=== PATIENT | male | born 1970 | race Caucasian/White ===

== ENCOUNTER 2021-03-19 19:34 | Emergency (ER) | payer MEDICAID ==
[~2021-03-19] VITALS: Ht 182.9 cm; Wt 100.0 kg
[~2021-03-19 19:34] MED LIST: ARIP15TA27 PO; LEVO50 PO; QUET200T PO; SERT-158 PO
[2021-03-19 20:27] LABS: EOSINOPHILS % (AUTO) 0.6 % (1.0-6.0); HEMATOCRIT 49.3 % (41-53); HEMOGLOBIN 16.8 g/dL (13.5-17.5); LYMPHOCYTES # (AUTO) 3.5 K/uL (1.0-4.8); LYMPHOCYTES % (AUTO) 39.8 % (22.0-44.0); MEAN CORPUSCULAR HEMOGLOBIN 32.8 pg (26.0-34.0); MEAN CORPUSCULAR HGB CONC 34.1 G/dL (31.0-37.0); MEAN CORPUSCULAR VOLUME 96 fL (80-100); MONOCYTES # (AUTO) 0.5 K/uL (0.1-1.0); MONOCYTES % (AUTO) 5.5 % (2.0-9.0); NEUTROPHILS # (AUTO) 4.7 K/uL (1.8-7.7); NEUTROPHILS % (AUTO) 53.1 % (40.0-70.0); PLATELET COUNT (AUTO) 221 K/uL (150-450); RED BLOOD CELL COUNT(AUTO) 5.13 MIL/uL (4.50-5.90); RED CELL DISTRIBUTION WIDTH 14.4 % (11.5-14.5)
[2021-03-19 20:41] LABS: ANION GAP 14 mmol/L (8-16); CARBON DIOXIDE 25 mmol/L (22-29); CHLORIDE 101 mmol/L (98-107); CREATININE 1.18 mg/dL (0.60-1.30); GLOMERULAR FILTR. RATE CALC > 60 mL/min (>60); GLUCOSE,RANDOM 194 mg/dL (70-110); POTASSIUM 3.8 mmol/L (3.5-5.1); SODIUM SERUM 140 mmol/L (136-145); UREA NITROGEN, BLOOD 11 mg/dL (7-18)
[2021-03-19 20:58] LABS: ASPARTATE AMINOTRANSFERASE 115 U/L (15-37); BILIRUBIN,TOTAL 0.6 mg/dL (0.1-1.0); THYROID STIMULATING HORMONE 5.59 uIU/mL (0.36-3.74); TOTAL PROTEIN, SERUM 6.9 g/dL (6.4-8.2)
[2021-03-19 21:18] LABS: ALBUMIN 3.2 g/dL (3.4-5.0)
[2021-03-19 21:24] LABS: ALANINE AMINOTRANSFERASE 80 U/L (12-78); ALKALINE PHOSPHATASE 128 U/L (46-116)
[2021-03-19 21:32] VITALS: BP 132/87
[2021-03-19 21:32] LABS: FREE T4 (FREE THYROXINE) 0.86 ng/dL (0.76-1.46)
[2021-03-19 21:50] LABS: COVID AG,FIA SOURCE NASOPHARYNGEAL
== END 2021-03-20 00:04 | disposition home or self-care (01) ==
LOC: EMS 19:35
DX: R45.851 Suicidal ideations (principal); F10.10 Alcohol abuse, uncomplicated; R74.01 Elevation of levels of liver transaminase levels; F17.210 Nicotine dependence, cigarettes, uncomplicated; Z20.822 Contact with and (suspected) exposure to COVID-19; Y90.8 Blood alcohol level of 240 mg/100 ml or more
CPT/HCPCS: 80053; 84439; 84443; 85025; 87426; 99285; G0480

== ENCOUNTER 2021-06-20 12:16 | Inpatient (IN) | payer MEDICAID ==
[~2021-06-20] VITALS: Ht 182.9 cm; Wt 104.8 kg
[2021-06-20 14:38] LABS: BASOPHILS % (AUTO) 1.1 % (0.0-2.0); EOSINOPHILS % (AUTO) 0.4 % (1.0-6.0); HEMATOCRIT 54.4 % (41-53); HEMOGLOBIN 18.6 g/dL (13.5-17.5); LYMPHOCYTES # (AUTO) 1.8 K/uL (1.0-4.8); LYMPHOCYTES % (AUTO) 25.9 % (22.0-44.0); MEAN CORPUSCULAR HEMOGLOBIN 32.8 pg (26.0-34.0); MEAN CORPUSCULAR HGB CONC 34.2 G/dL (31.0-37.0); MEAN CORPUSCULAR VOLUME 96 fL (80-100); MONOCYTES # (AUTO) 0.4 K/uL (0.1-1.0); MONOCYTES % (AUTO) 5.7 % (2.0-9.0); NEUTROPHILS # (AUTO) 4.8 K/uL (1.8-7.7); NEUTROPHILS % (AUTO) 66.9 % (40.0-70.0); PLATELET COUNT (AUTO) 227 K/uL (150-450); RED BLOOD CELL COUNT(AUTO) 5.66 MIL/uL (4.50-5.90); RED CELL DISTRIBUTION WIDTH 13.5 % (11.5-14.5)
[2021-06-20 14:48] LABS: ANION GAP 17 mmol/L (8-16); CALCIUM, TOTAL 8.6 mg/dL (8.8-10.5); CARBON DIOXIDE 21 mmol/L (22-29); CHLORIDE 98 mmol/L (98-107); CREATININE 1.17 mg/dL (0.60-1.30); GLOMERULAR FILTR. RATE CALC > 60 mL/min (>60); GLUCOSE,RANDOM 143 mg/dL (70-110); POTASSIUM 3.8 mmol/L (3.5-5.1); SODIUM SERUM 136 mmol/L (136-145); UREA NITROGEN, BLOOD 17 mg/dL (7-18)
[2021-06-20 14:51] LABS: SALICYLATE 3.1 mg/dL (2.8-20.0)
[2021-06-20 14:53] LABS: ACETAMINOPHEN < 2 mcg/mL (10-30); ALANINE AMINOTRANSFERASE 87 U/L (12-78); ALBUMIN 4.1 g/dL (3.4-5.0); ALKALINE PHOSPHATASE 101 U/L (46-116); ASPARTATE AMINOTRANSFERASE 131 U/L (15-37); BILIRUBIN,TOTAL 0.5 mg/dL (0.1-1.0); TOTAL PROTEIN, SERUM 8.7 g/dL (6.4-8.2)
[2021-06-20 16:33] LABS: AMPHET/METH SCREEN,URINE NEGATIVE (NEGATIVE); BARBITURATE SCREEN, URINE NEGATIVE (NEGATIVE); BENZODIAZEPINES SCREEN,URINE NEGATIVE (NEGATIVE); CANNABINOID SCREEN,URINE POSITIVE (NEGATIVE); COCAINE SCREEN,URINE NEGATIVE (NEGATIVE); METHADONE SCREEN, URINE NEGATIVE (NEGATIVE); OPIATE SCREEN,URINE NEGATIVE (NEGATIVE)
[2021-06-20 16:37] LABS: PHENCYCLIDINE SCREEN,URINE NEGATIVE (NEGATIVE)
[2021-06-20 16:40] LABS: APPEARANCE,URINE CLOUDY (CLEAR); BILIRUBIN,URINE NEGATIVE (NEGATIVE); GLUCOSE, URINE (UA) NEGATIVE (NEGATIVE); KETONES,URINE NEGATIVE (NEGATIVE); LEUKOCYTE ESTERASE ,URINE NEGATIVE (NEGATIVE); NITRATE,URINE NEGATIVE (NEGATIVE); OCCULT BLOOD,URINE NEGATIVE (NEGATIVE); PROTEIN,URINE NEGATIVE (NEGATIVE); UROBILINOGEN,URINE 0.2 mg/dL (<=1.0)
[2021-06-20] MEDS ORDERED: LORazepam 2 MG TABLET PO ONE (16:45)
[2021-06-20 17:11] LABS: COVID AG,FIA SOURCE NASAL SWAB
[2021-06-20 17:25] LABS: SQUAMOUS EPITHELIAL CELL,UR Few /LPF (None Seen)
[2021-06-20 17:26] LABS: BACTERIA,URINE None Seen /HPF (None Seen); RBC,URINE None Seen /HPF (0-2); WBC,URINE 0-2 /HPF (0-5)
[2021-06-20] MEDS ORDERED: LORazepam 2 MG TABLET PO PRN (17:30)
[2021-06-20] MEDS ORDERED: DOCUSATE SODIUM 100 MG CAPSULE PO PRN (18:00)
[2021-06-20] MEDS ORDERED: ALBUTEROL SULFATE HFA 90 MCG/PUFF 8 GM INHALER IH PRN (18:00)
[2021-06-20] MEDS ORDERED: CloNIDine HCL 0.1 MG TABLET PO PRN (18:00)
[2021-06-20] MEDS ORDERED: MAGNESIUM HYDROXIDE SUSPENSION 30 ML UDCUP PO PRN (18:00)
[2021-06-20] MEDS ORDERED: IBUPROFEN 400 MG TABLET PO PRN (18:00)
[2021-06-20] MEDS ORDERED: MAG HYDROX/AL HYDROX/SIMETH ES 30 ML SUSPENSION UDCUP PO PRN (18:00)
[2021-06-20] MEDS ORDERED: PETROLATUM,WHITE 28 GM JELLY TP PRN (18:00)
[2021-06-20] MEDS ORDERED: LOPERAMIDE HCL 2 MG CAPSULE PO PRN (18:00)
[2021-06-20] MEDS ORDERED: ACETAMINOPHEN 325 MG TABLET PO PRN (18:00)
[2021-06-20] MEDS ORDERED: GuaiFENesin/D-METHORPHAN [SUGAR-FREE] 200-20MG/10 ML SYRUP UDCUP PO PRN (18:00)
[2021-06-20 21:00] VITALS: BP 164/102
[2021-06-20] MEDS: ONDANSETRON HCL 4 MG TABLET PO PRN (21:49)
[2021-06-20] MEDS: LORazepam 2 MG TABLET PO PRN (21:52)
[2021-06-20 22:09] VITALS: BP 140/97
[2021-06-20 22:11] VITALS: BP 140/97
[2021-06-20 23:05] VITALS: BP 150/98
[2021-06-21] VITALS (12 sets, daily range): BP systolic 102–176; BP diastolic 73–99
[2021-06-21] MEDS: LORazepam 2 MG TABLET PO PRN (03:26)
[2021-06-21] MEDS ORDERED: LORazepam 2 MG TABLET PO PRN (07:00)
[2021-06-21 07:26] LABS: HEMOGLOBIN A1C 6.7 % (3.8-5.6)
[2021-06-21 07:38] LABS: CHOL/HDL RATIO 2.3 (4.2-7.3); CHOLESTEROL 129 mg/dL (131-200); FREE T4 (FREE THYROXINE) 0.94 ng/dL (0.76-1.46); HDL CHOLESTEROL 57 mg/dL (40-60); LDL CHOL (CALC.) 29 mg/dL (0-130); THYROID STIMULATING HORMONE 8.82 uIU/mL (0.36-3.74); TRIGLYCERIDES 217 mg/dL (15-150)
[2021-06-21] MEDS: LORazepam 2 MG TABLET PO SCH ×2 (08:21→09:04)
[2021-06-21] MEDS: ONDANSETRON HCL 4 MG TABLET PO PRN (08:29)
[2021-06-21] MEDS: AmLODIPine BESYLATE 10 MG TABLET PO SCH (10:34)
[2021-06-21] MEDS: LISINOPRIL 20 MG TABLET PO SCH (10:34)
[2021-06-21] MEDS: QUEtiapine FUMARATE 100 MG TABLET PO SCH (11:40)
[2021-06-21] MEDS ORDERED: ACETAMINOPHEN 325 MG TABLET PO PRN (12:00)
[2021-06-21] MEDS ORDERED: MAG HYDROX/AL HYDROX/SIMETH ES 30 ML SUSPENSION UDCUP PO PRN (12:00)
[2021-06-21] MEDS ORDERED: GuaiFENesin/D-METHORPHAN [SUGAR-FREE] 200-20MG/10 ML SYRUP UDCUP PO PRN (12:00)
[2021-06-21] MEDS ORDERED: CloNIDine HCL 0.1 MG TABLET PO PRN (12:00)
[2021-06-21] MEDS ORDERED: ONDANSETRON HCL 4 MG TABLET PO PRN (12:00)
[2021-06-21] MEDS ORDERED: ALBUTEROL SULFATE HFA 90 MCG/PUFF 8 GM INHALER IH PRN (12:00)
[2021-06-21] MEDS ORDERED: PETROLATUM,WHITE 28 GM JELLY TP PRN (12:00)
[2021-06-21] MEDS ORDERED: NICOTINE 14 MG/24 HOUR PATCH TD PRN (12:00)
[2021-06-21] MEDS ORDERED: IBUPROFEN 400 MG TABLET PO PRN (12:00)
[2021-06-21] MEDS ORDERED: MAGNESIUM HYDROXIDE SUSPENSION 30 ML UDCUP PO PRN (12:00)
[2021-06-21] MEDS ORDERED: LOPERAMIDE HCL 2 MG CAPSULE PO PRN (12:00)
[2021-06-21] MEDS ORDERED: DOCUSATE SODIUM 100 MG CAPSULE PO PRN (12:00)
[2021-06-21] MEDS: PROPRANOLOL HCL 20 MG TABLET PO SCH (12:37)
[2021-06-21] MEDS: DIAZEPAM 10 MG TABLET PO SCH ×3 (12:37→20:59)
[2021-06-21] MEDS: DIAZEPAM 10 MG TABLET PO PRN (18:52)
[2021-06-21] MEDS: QUEtiapine FUMARATE 200 MG TABLET PO SCH (20:59)
[2021-06-22] VITALS (8 sets, daily range): BP systolic 103–122; BP diastolic 62–80
[2021-06-22] MEDS: DIAZEPAM 10 MG TABLET PO PRN ×3 (00:56→14:35)
[2021-06-22] MEDS: ZOLPIDEM TARTRATE 10 MG TABLET PO PRN (00:56)
[2021-06-22] MEDS ORDERED: LEVOTHYROXINE SODIUM 50 MCG TABLET PO SCH (06:30)
[2021-06-22] MEDS: LEVOTHYROXINE SODIUM 50 MCG TABLET PO SCH (06:34)
[2021-06-22] MEDS: QUEtiapine FUMARATE 100 MG TABLET PO SCH (08:33)
[2021-06-22] MEDS: AmLODIPine BESYLATE 10 MG TABLET PO SCH (08:33)
[2021-06-22] MEDS: DIAZEPAM 10 MG TABLET PO SCH ×4 (08:33→20:44)
[2021-06-22] MEDS: PROPRANOLOL HCL 20 MG TABLET PO SCH (08:33)
[2021-06-22] MEDS: LISINOPRIL 20 MG TABLET PO SCH (08:33)
[2021-06-22] MEDS: GABAPENTIN 300 MG CAPSULE PO SCH ×2 (11:38→17:00)
[2021-06-22] MEDS ORDERED: HALOPERIDOL LACTATE 5 MG/ML VIAL IM ONE (16:00)
[2021-06-22] MEDS ORDERED: DiphenhydrAMINE HCL 50 MG/ML VIAL IM ONE (16:00)
[2021-06-22] MEDS ORDERED: LORazepam 2 MG/ML VIAL IM ONE (16:00)
[2021-06-22] MEDS: QUEtiapine FUMARATE 200 MG TABLET PO SCH (20:44)
[2021-06-23] MEDS: LEVOTHYROXINE SODIUM 50 MCG TABLET PO SCH (06:30)
[2021-06-23] MEDS ORDERED: LORazepam 1 MG TABLET PO PRN (07:00)
[2021-06-23] MEDS: HALOPERIDOL 5 MG TABLET PO PRN ×2 (08:45→16:06)
[2021-06-23] MEDS ORDERED: LORazepam 1 MG TABLET PO SCH (09:00)
[2021-06-23] MEDS: LISINOPRIL 20 MG TABLET PO SCH (09:12)
[2021-06-23] MEDS: PROPRANOLOL HCL 20 MG TABLET PO SCH (09:12)
[2021-06-23] MEDS: AmLODIPine BESYLATE 10 MG TABLET PO SCH (09:12)
[2021-06-23] MEDS: GABAPENTIN 300 MG CAPSULE PO SCH ×2 (09:12→16:06)
[2021-06-23] MEDS: QUEtiapine FUMARATE 100 MG TABLET PO SCH (09:12)
[2021-06-23] MEDS: DIAZEPAM 5 MG TABLET PO SCH ×4 (09:12→20:34)
[2021-06-23 10:53] VITALS: BP 105/80
[2021-06-23] MEDS: DIAZEPAM 5 MG TABLET PO PRN ×3 (11:00→17:37)
[2021-06-23 11:37] VITALS: BP 117/80
[2021-06-23 16:27] VITALS: BP 115/79
[2021-06-23 18:00] VITALS: BP 115/79
[2021-06-23] MEDS: ZOLPIDEM TARTRATE 10 MG TABLET PO PRN (20:34)
[2021-06-23] MEDS: QUEtiapine FUMARATE 200 MG TABLET PO SCH (20:34)
[2021-06-24 02:10] VITALS: BP 109/76
[2021-06-24 02:15] VITALS: BP 109/76
[2021-06-24] MEDS: LEVOTHYROXINE SODIUM 50 MCG TABLET PO SCH (06:33)
[2021-06-24] MEDS ORDERED: DIAZEPAM 5 MG TABLET PO PRN (07:00)
[2021-06-24] MEDS ORDERED: LORazepam 1 MG TABLET PO PRN (07:00)
[2021-06-24 07:14] LABS: BASOPHILS % (AUTO) 0.7 % (0.0-2.0); EOSINOPHILS % (AUTO) 2.9 % (1.0-6.0); HEMATOCRIT 41.1 % (41-53); LYMPHOCYTES # (AUTO) 1.5 K/uL (1.0-4.8); LYMPHOCYTES % (AUTO) 16.6 % (22.0-44.0); MEAN CORPUSCULAR HEMOGLOBIN 32.7 pg (26.0-34.0); MEAN CORPUSCULAR VOLUME 96 fL (80-100); MONOCYTES # (AUTO) 0.5 K/uL (0.1-1.0); MONOCYTES % (AUTO) 6.1 % (2.0-9.0); NEUTROPHILS # (AUTO) 6.5 K/uL (1.8-7.7); NEUTROPHILS % (AUTO) 73.7 % (40.0-70.0); PLATELET COUNT (AUTO) 111 K/uL (150-450); RED BLOOD CELL COUNT(AUTO) 4.28 MIL/uL (4.50-5.90); RED CELL DISTRIBUTION WIDTH 13.5 % (11.5-14.5)
[2021-06-24 07:29] LABS: HEMOGLOBIN A1C 6.6 % (3.8-5.6)
[2021-06-24 07:56] LABS: THYROID STIMULATING HORMONE 8.23 uIU/mL (0.36-3.74)
[2021-06-24] MEDS: AmLODIPine BESYLATE 10 MG TABLET PO SCH (08:51)
[2021-06-24] MEDS: LISINOPRIL 20 MG TABLET PO SCH (08:51)
[2021-06-24] MEDS: QUEtiapine FUMARATE 100 MG TABLET PO SCH (08:51)
[2021-06-24] MEDS: GABAPENTIN 300 MG CAPSULE PO SCH ×3 (08:51→20:15)
[2021-06-24] MEDS: PROPRANOLOL HCL 20 MG TABLET PO SCH (08:51)
[2021-06-24 10:00] VITALS: BP 146/88
[2021-06-24 10:42] VITALS: BP 146/88
[2021-06-24] MEDS: HALOPERIDOL 5 MG TABLET PO PRN (11:32)
[2021-06-24 17:30] VITALS: BP 104/69
[2021-06-24 18:00] VITALS: BP 104/69
[2021-06-24] MEDS: ZOLPIDEM TARTRATE 10 MG TABLET PO PRN (20:15)
[2021-06-24] MEDS: QUEtiapine FUMARATE 200 MG TABLET PO SCH (20:15)
[2021-06-25 00:27] VITALS: BP 108/63
[2021-06-25] MEDS: LEVOTHYROXINE SODIUM 50 MCG TABLET PO SCH (06:34)
[2021-06-25] MEDS: HALOPERIDOL 5 MG TABLET PO PRN (08:10)
[2021-06-25] MEDS: QUEtiapine FUMARATE 200 MG TABLET PO SCH ×2 (08:41→20:36)
[2021-06-25] MEDS: GABAPENTIN 300 MG CAPSULE PO SCH ×3 (08:41→20:36)
[2021-06-25] MEDS: PROPRANOLOL HCL 20 MG TABLET PO SCH (08:41)
[2021-06-25] MEDS: AmLODIPine BESYLATE 10 MG TABLET PO SCH (08:41)
[2021-06-25] MEDS: LISINOPRIL 20 MG TABLET PO SCH (08:41)
[2021-06-25 08:58] VITALS: BP 135/92
[2021-06-25] MEDS: LORazepam 2 MG TABLET PO PRN ×3 (10:15→22:49)
[2021-06-25 16:42] VITALS: BP 126/87
[2021-06-25] MEDS: ZOLPIDEM TARTRATE 10 MG TABLET PO PRN (20:36)
[2021-06-26 05:16] VITALS: BP 139/91
[2021-06-26] MEDS: LORazepam 2 MG TABLET PO PRN ×3 (05:21→17:51)
[2021-06-26] MEDS: LEVOTHYROXINE SODIUM 50 MCG TABLET PO SCH (06:18)
[2021-06-26] MEDS: HALOPERIDOL 5 MG TABLET PO PRN ×3 (08:20→17:51)
[2021-06-26] MEDS: PROPRANOLOL HCL 20 MG TABLET PO SCH (08:34)
[2021-06-26] MEDS: QUEtiapine FUMARATE 200 MG TABLET PO SCH ×2 (08:34→20:03)
[2021-06-26] MEDS: AmLODIPine BESYLATE 10 MG TABLET PO SCH (08:34)
[2021-06-26] MEDS: LISINOPRIL 20 MG TABLET PO SCH (08:34)
[2021-06-26] MEDS: GABAPENTIN 300 MG CAPSULE PO SCH ×3 (08:34→20:03)
[2021-06-26 09:57] VITALS: BP 132/93
[2021-06-26 16:09] VITALS: BP 131/80
[2021-06-26] MEDS: NICOTINE 14 MG/24 HOUR PATCH TD PRN (19:28)
[2021-06-26] MEDS: ZOLPIDEM TARTRATE 10 MG TABLET PO PRN (20:03)
[2021-06-27 02:37] VITALS: BP 128/84
[2021-06-27] MEDS: LORazepam 2 MG TABLET PO PRN ×3 (05:39→16:18)
[2021-06-27] MEDS: LEVOTHYROXINE SODIUM 50 MCG TABLET PO SCH (06:20)
[2021-06-27 08:32] VITALS: BP 118/77
[2021-06-27] MEDS: PROPRANOLOL HCL 20 MG TABLET PO SCH (08:37)
[2021-06-27] MEDS: QUEtiapine FUMARATE 200 MG TABLET PO SCH ×2 (08:37→21:18)
[2021-06-27] MEDS: AmLODIPine BESYLATE 10 MG TABLET PO SCH (08:37)
[2021-06-27] MEDS: GABAPENTIN 300 MG CAPSULE PO SCH ×3 (08:37→21:18)
[2021-06-27] MEDS: LISINOPRIL 20 MG TABLET PO SCH (08:37)
[2021-06-27] MEDS: HALOPERIDOL 5 MG TABLET PO PRN ×2 (12:18→16:18)
[2021-06-27] MEDS: NICOTINE 14 MG/24 HOUR PATCH TD PRN (12:39)
[2021-06-27 16:31] VITALS: BP 125/18
[2021-06-27] MEDS: ZOLPIDEM TARTRATE 10 MG TABLET PO PRN (21:18)
[2021-06-28 02:41] VITALS: BP 115/81
[2021-06-28] MEDS: LORazepam 2 MG TABLET PO PRN ×3 (02:43→17:23)
[2021-06-28] MEDS: LEVOTHYROXINE SODIUM 50 MCG TABLET PO SCH (06:49)
[2021-06-28] MEDS: LISINOPRIL 20 MG TABLET PO SCH (08:27)
[2021-06-28] MEDS: QUEtiapine FUMARATE 200 MG TABLET PO SCH ×2 (08:27→20:48)
[2021-06-28] MEDS: PROPRANOLOL HCL 20 MG TABLET PO SCH (08:27)
[2021-06-28] MEDS: GABAPENTIN 300 MG CAPSULE PO SCH ×3 (08:27→20:48)
[2021-06-28] MEDS: AmLODIPine BESYLATE 10 MG TABLET PO SCH (08:27)
[2021-06-28] MEDS: SERTRALINE HCL 50 MG TABLET PO SCH (08:28)
[2021-06-28] MEDS: NICOTINE 14 MG/24 HOUR PATCH TD PRN (08:28)
[2021-06-28 09:06] VITALS: BP 147/95
[2021-06-28] MEDS: HALOPERIDOL 5 MG TABLET PO PRN ×2 (11:16→16:10)
[2021-06-28 16:29] VITALS: BP 120/84
[2021-06-28] MEDS: ZOLPIDEM TARTRATE 10 MG TABLET PO PRN (20:48)
[2021-06-29 02:21] VITALS: BP 133/92
[2021-06-29] MEDS: LEVOTHYROXINE SODIUM 50 MCG TABLET PO SCH (06:15)
[2021-06-29 08:01] LABS: COVID AG,FIA SOURCE NASAL SWAB
[2021-06-29] MEDS: PROPRANOLOL HCL 20 MG TABLET PO SCH (08:12)
[2021-06-29] MEDS: LORazepam 2 MG TABLET PO PRN ×3 (08:12→21:00)
[2021-06-29] MEDS: HALOPERIDOL 5 MG TABLET PO PRN ×2 (08:13→15:00)
[2021-06-29] MEDS: GABAPENTIN 300 MG CAPSULE PO SCH ×3 (08:13→20:28)
[2021-06-29] MEDS: AmLODIPine BESYLATE 10 MG TABLET PO SCH (08:13)
[2021-06-29] MEDS: QUEtiapine FUMARATE 200 MG TABLET PO SCH ×2 (08:13→20:28)
[2021-06-29] MEDS: NICOTINE 14 MG/24 HOUR PATCH TD PRN (08:13)
[2021-06-29] MEDS: SERTRALINE HCL 50 MG TABLET PO SCH (08:14)
[2021-06-29] MEDS: LISINOPRIL 20 MG TABLET PO SCH (08:14)
[2021-06-29 10:45] VITALS: BP 109/71
[2021-06-29] MEDS ORDERED: ARIPiprazole ER SUSPENSION 400 MG PRE-FILLED DUAL CHAMBER SYRINGE IM ONE (15:45)
[2021-06-29 16:29] VITALS: BP 114/65
[2021-06-29] MEDS: ZOLPIDEM TARTRATE 10 MG TABLET PO PRN (20:28)
[2021-06-30 04:29] VITALS: BP 129/78
[2021-06-30] MEDS: LORazepam 2 MG TABLET PO PRN ×3 (05:46→20:13)
[2021-06-30] MEDS: LEVOTHYROXINE SODIUM 50 MCG TABLET PO SCH (05:46)
[2021-06-30 09:26] VITALS: BP 138/92
[2021-06-30] MEDS: AmLODIPine BESYLATE 10 MG TABLET PO SCH (09:36)
[2021-06-30] MEDS: QUEtiapine FUMARATE 200 MG TABLET PO SCH ×2 (09:36→20:04)
[2021-06-30] MEDS: PROPRANOLOL HCL 20 MG TABLET PO SCH (09:36)
[2021-06-30] MEDS: SERTRALINE HCL 50 MG TABLET PO SCH (09:36)
[2021-06-30] MEDS: GABAPENTIN 300 MG CAPSULE PO SCH ×3 (09:36→20:04)
[2021-06-30] MEDS: LISINOPRIL 20 MG TABLET PO SCH (09:36)
[2021-06-30] MEDS: HALOPERIDOL 5 MG TABLET PO PRN ×2 (11:02→17:05)
[2021-06-30 16:15] VITALS: BP 112/73
[2021-06-30] MEDS: ZOLPIDEM TARTRATE 10 MG TABLET PO PRN (21:03)
[2021-07-01 05:49] VITALS: BP 120/75
[2021-07-01] MEDS: LORazepam 2 MG TABLET PO PRN ×3 (06:03→18:19)
[2021-07-01] MEDS: LEVOTHYROXINE SODIUM 50 MCG TABLET PO SCH (06:03)
[2021-07-01] MEDS: HALOPERIDOL 5 MG TABLET PO PRN ×3 (06:03→16:09)
[2021-07-01] MEDS: PROPRANOLOL HCL 20 MG TABLET PO SCH (08:48)
[2021-07-01] MEDS: QUEtiapine FUMARATE 200 MG TABLET PO SCH ×2 (08:48→20:33)
[2021-07-01] MEDS: SERTRALINE HCL 50 MG TABLET PO SCH (08:48)
[2021-07-01] MEDS: LISINOPRIL 20 MG TABLET PO SCH (08:48)
[2021-07-01] MEDS: GABAPENTIN 300 MG CAPSULE PO SCH ×3 (08:48→20:33)
[2021-07-01] MEDS: AmLODIPine BESYLATE 10 MG TABLET PO SCH (08:48)
[2021-07-01 08:53] VITALS: BP 111/74
[2021-07-01 16:20] VITALS: BP 102/63
[2021-07-01] MEDS: ZOLPIDEM TARTRATE 10 MG TABLET PO PRN (20:33)
[2021-07-02] MEDS: LORazepam 2 MG TABLET PO PRN ×4 (01:59→23:28)
[2021-07-02] MEDS: HALOPERIDOL 5 MG TABLET PO PRN ×3 (01:59→16:49)
[2021-07-02 04:10] VITALS: BP 118/76
[2021-07-02] MEDS: LEVOTHYROXINE SODIUM 50 MCG TABLET PO SCH (07:00)
[2021-07-02] MEDS: PROPRANOLOL HCL 20 MG TABLET PO SCH (08:59)
[2021-07-02] MEDS: QUEtiapine FUMARATE 200 MG TABLET PO SCH ×2 (08:59→20:08)
[2021-07-02] MEDS: AmLODIPine BESYLATE 10 MG TABLET PO SCH (08:59)
[2021-07-02] MEDS: SERTRALINE HCL 50 MG TABLET PO SCH (08:59)
[2021-07-02] MEDS: GABAPENTIN 300 MG CAPSULE PO SCH ×3 (08:59→20:08)
[2021-07-02] MEDS: LISINOPRIL 20 MG TABLET PO SCH (09:10)
[2021-07-02 09:30] VITALS: BP 109/72
[2021-07-02 16:18] VITALS: BP 107/68
[2021-07-02] MEDS: ZOLPIDEM TARTRATE 10 MG TABLET PO PRN (20:08)
[2021-07-03] VITALS: BP 103/72
[2021-07-03] MEDS: LORazepam 2 MG TABLET PO PRN (05:58)
[2021-07-03] MEDS: HALOPERIDOL 5 MG TABLET PO PRN (05:59)
[2021-07-03] MEDS: LEVOTHYROXINE SODIUM 50 MCG TABLET PO SCH (06:21)
[2021-07-03 08:30] VITALS: BP 102/70
[2021-07-03] MEDS: SERTRALINE HCL 50 MG TABLET PO SCH (09:18)
[2021-07-03] MEDS: LISINOPRIL 20 MG TABLET PO SCH (09:18)
[2021-07-03] MEDS: QUEtiapine FUMARATE 200 MG TABLET PO SCH (09:18)
[2021-07-03] MEDS: AmLODIPine BESYLATE 10 MG TABLET PO SCH (09:18)
[2021-07-03] MEDS: GABAPENTIN 300 MG CAPSULE PO SCH (09:18)
[2021-07-03] MEDS: PROPRANOLOL HCL 20 MG TABLET PO SCH (09:18)
[2021-07-03] MEDS ORDERED: GABA-1181 PO ×2 (12:03)
[2021-07-03] MEDS ORDERED: QUET200T PO (12:05)
[2021-07-03] MEDS ORDERED: PROP20TA18 PO (12:07)
[2021-07-03] MEDS ORDERED: AMLO-258 PO (12:08)
[2021-07-03] MEDS ORDERED: LISI-662 PO (12:14)
== END 2021-07-03 13:45 | disposition home or self-care (01) | DRG 750 ==
LOC: EMS 12:21 → B3A 18:29 → B2S 20:48 → B3A 06-22 21:28
PROVIDERS: ADMIT Psychiatry & Neurology Child & Adolescent Psychiatry; ATTEND Psychiatry & Neurology Child & Adolescent Psychiatry
DX: F25.1 Schizoaffective disorder, depressive type (principal); Z59.0 Homelessness; D75.1 Secondary polycythemia; Z20.822 Contact with and (suspected) exposure to COVID-19; E03.9 Hypothyroidism, unspecified; F41.9 Anxiety disorder, unspecified; F19.10 Other psychoactive substance abuse, uncomplicated; E78.5 Hyperlipidemia, unspecified; I10 Essential (primary) hypertension; Y90.9 Presence of alcohol in blood, level not specified; R73.9 Hyperglycemia, unspecified; F17.210 Nicotine dependence, cigarettes, uncomplicated; F10.20 Alcohol dependence, uncomplicated; F12.10 Cannabis abuse, uncomplicated; T50.992A Poisoning by other drugs, medicaments and biological substances, intentional self-harm, initial encounter; Y92.89 Other specified places as the place of occurrence of the external cause
CPT/HCPCS: 80053; 80061; 81001; 83036; 84439; 84443; 85025; 99285; G0480; G0481; J0401; J1200; J1630; J2060; Q0162

== ENCOUNTER 2021-07-18 13:49 | Inpatient (IN) | payer MEDICAID ==
[~2021-07-18] VITALS: Ht 182.9 cm; Wt 103.3 kg
[~2021-07-18 13:49] MED LIST changes: +AMLO-258 PO; -ARIP15TA27 PO; +GABA-1181 PO; +LISI-662 PO; +PROP20TA18 PO
[2021-07-18 15:58] LABS: EOSINOPHILS % (AUTO) 2.5 % (1.0-6.0); HEMATOCRIT 48.2 % (41-53); HEMOGLOBIN 16.4 g/dL (13.5-17.5); LYMPHOCYTES # (AUTO) 3.2 K/uL (1.0-4.8); LYMPHOCYTES % (AUTO) 48.5 % (22.0-44.0); MEAN CORPUSCULAR HGB CONC 34.1 G/dL (31.0-37.0); MEAN CORPUSCULAR VOLUME 94 fL (80-100); MONOCYTES # (AUTO) 0.6 K/uL (0.1-1.0); MONOCYTES % (AUTO) 8.3 % (2.0-9.0); NEUTROPHILS # (AUTO) 2.6 K/uL (1.8-7.7); NEUTROPHILS % (AUTO) 38.7 % (40.0-70.0); PLATELET COUNT (AUTO) 339 K/uL (150-450); RED BLOOD CELL COUNT(AUTO) 5.13 MIL/uL (4.50-5.90); RED CELL DISTRIBUTION WIDTH 13.6 % (11.5-14.5)
[2021-07-18 16:04] LABS: COVID AG,FIA SOURCE NASOPHARYNGEAL
[2021-07-18 16:22] LABS: AMPHET/METH SCREEN,URINE NEGATIVE (NEGATIVE); BARBITURATE SCREEN, URINE NEGATIVE (NEGATIVE); BENZODIAZEPINES SCREEN,URINE POSITIVE (NEGATIVE); CANNABINOID SCREEN,URINE POSITIVE (NEGATIVE); COCAINE SCREEN,URINE NEGATIVE (NEGATIVE); METHADONE SCREEN, URINE NEGATIVE (NEGATIVE); OPIATE SCREEN,URINE NEGATIVE (NEGATIVE)
[2021-07-18 16:23] LABS: PHENCYCLIDINE SCREEN,URINE NEGATIVE (NEGATIVE)
[2021-07-18 16:28] LABS: APPEARANCE,URINE CLOUDY (CLEAR); BILIRUBIN,URINE PRELIM. POSITIVE (NEGATIVE); GLUCOSE, URINE (UA) NEGATIVE (NEGATIVE); KETONES,URINE 15 mg/dL (NEGATIVE); LEUKOCYTE ESTERASE ,URINE NEGATIVE (NEGATIVE); NITRATE,URINE NEGATIVE (NEGATIVE); OCCULT BLOOD,URINE NEGATIVE (NEGATIVE); PH,URINE 5.5 (5.0-8.0); PROTEIN,URINE POS 1+ (NEGATIVE)
[2021-07-18 16:28] LABS: ANION GAP 19 mmol/L (8-16); CALCIUM, TOTAL 8.9 mg/dL (8.8-10.5); CARBON DIOXIDE 21 mmol/L (22-29); CHLORIDE 101 mmol/L (98-107); GLOMERULAR FILTR. RATE CALC > 60 mL/min (>60); GLUCOSE,RANDOM 100 mg/dL (70-110); POTASSIUM 3.8 mmol/L (3.5-5.1); SODIUM SERUM 141 mmol/L (136-145); UREA NITROGEN, BLOOD 8 mg/dL (7-18)
[2021-07-18 16:40] LABS: SALICYLATE 1.3 mg/dL (2.8-20.0)
[2021-07-18 16:43] LABS: ALANINE AMINOTRANSFERASE 36 U/L (12-78); ALKALINE PHOSPHATASE 104 U/L (46-116); ASPARTATE AMINOTRANSFERASE 35 U/L (15-37); BILIRUBIN,TOTAL 0.4 mg/dL (0.1-1.0); FREE T4 (FREE THYROXINE) 0.82 ng/dL (0.76-1.46); TOTAL PROTEIN, SERUM 8.3 g/dL (6.4-8.2)
[2021-07-18 16:49] LABS: ACETAMINOPHEN < 2 mcg/mL (10-30)
[2021-07-18] MEDS ORDERED: HALOPERIDOL 5 MG TABLET PO PRN (17:00)
[2021-07-18] MEDS ORDERED: ZOLPIDEM TARTRATE 10 MG TABLET PO PRN (17:00)
[2021-07-18] MEDS: LORazepam 2 MG TABLET PO PRN (17:30)
[2021-07-18] MEDS: QUEtiapine FUMARATE 100 MG TABLET PO PRN (17:30)
[2021-07-18 20:10] VITALS: BP 120/64
[2021-07-19 00:42] VITALS: BP 134/64
[2021-07-19] MEDS: LORazepam 2 MG TABLET PO PRN ×3 (05:56→16:00)
[2021-07-19] MEDS: LEVOTHYROXINE SODIUM 50 MCG TABLET PO SCH (06:48)
[2021-07-19 08:38] VITALS: BP_SYST 109; BP_SYST 140; BP_DIAS 66; BP_DIAS 90
[2021-07-19] MEDS: PROPRANOLOL HCL 20 MG TABLET PO SCH (08:43)
[2021-07-19 08:52] LABS: CHOL/HDL RATIO 2.8 (4.2-7.3); FREE T4 (FREE THYROXINE) 0.76 ng/dL (0.76-1.46); THYROID STIMULATING HORMONE 5.74 uIU/mL (0.36-3.74)
[2021-07-19] MEDS ORDERED: DOCUSATE SODIUM 100 MG CAPSULE PO PRN (09:45)
[2021-07-19] MEDS ORDERED: ACETAMINOPHEN 325 MG TABLET PO PRN (09:45)
[2021-07-19] MEDS ORDERED: IBUPROFEN 400 MG TABLET PO PRN (09:45)
[2021-07-19] MEDS ORDERED: MAG HYDROX/AL HYDROX/SIMETH ES 30 ML SUSPENSION UDCUP PO PRN (09:45)
[2021-07-19] MEDS ORDERED: PETROLATUM,WHITE 28 GM JELLY TP PRN (09:45)
[2021-07-19] MEDS ORDERED: NICOTINE 14 MG/24 HOUR PATCH TD PRN (09:45)
[2021-07-19] MEDS ORDERED: GuaiFENesin/D-METHORPHAN [SUGAR-FREE] 200-20MG/10 ML SYRUP UDCUP PO PRN (09:45)
[2021-07-19] MEDS ORDERED: ONDANSETRON HCL 4 MG TABLET PO PRN (09:45)
[2021-07-19] MEDS ORDERED: LOPERAMIDE HCL 2 MG CAPSULE PO PRN (09:45)
[2021-07-19] MEDS ORDERED: ALBUTEROL SULFATE HFA 90 MCG/PUFF 8 GM INHALER IH PRN (09:45)
[2021-07-19] MEDS ORDERED: MAGNESIUM HYDROXIDE SUSPENSION 30 ML UDCUP PO PRN (09:45)
[2021-07-19 16:08] VITALS: BP 159/106
[2021-07-19] MEDS: SERTRALINE HCL 50 MG TABLET PO SCH (16:29)
[2021-07-19] MEDS: QUEtiapine FUMARATE 200 MG TABLET PO SCH (16:29)
[2021-07-19 17:19] VITALS: BP 141/94
[2021-07-20] VITALS (12 sets, daily range): BP systolic 121–140; BP diastolic 23–101
[2021-07-20] MEDS ORDERED: LEVOTHYROXINE SODIUM 50 MCG TABLET PO SCH (06:30)
[2021-07-20] MEDS: LEVOTHYROXINE SODIUM 50 MCG TABLET PO SCH (07:05)
[2021-07-20] MEDS ORDERED: PROPRANOLOL HCL 20 MG TABLET PO SCH (09:00)
[2021-07-20] MEDS: PROPRANOLOL HCL 20 MG TABLET PO SCH (09:21)
[2021-07-20] MEDS: LISINOPRIL 20 MG TABLET PO SCH (09:21)
[2021-07-20] MEDS: QUEtiapine FUMARATE 200 MG TABLET PO SCH ×2 (09:21→16:18)
[2021-07-20] MEDS: AmLODIPine BESYLATE 10 MG TABLET PO SCH (09:22)
[2021-07-20] MEDS: SERTRALINE HCL 50 MG TABLET PO SCH ×2 (09:22→16:17)
[2021-07-20] MEDS: DIAZEPAM 10 MG TABLET PO PRN ×2 (11:02→22:29)
[2021-07-20] MEDS: QUEtiapine FUMARATE 100 MG TABLET PO PRN (19:47)
[2021-07-20] MEDS: LORazepam 2 MG TABLET PO PRN (19:47)
[2021-07-21] VITALS (7 sets, daily range): BP systolic 106–139; BP diastolic 75–91
[2021-07-21] MEDS: LEVOTHYROXINE SODIUM 50 MCG TABLET PO SCH (06:15)
[2021-07-21] MEDS: QUEtiapine FUMARATE 200 MG TABLET PO SCH ×2 (08:42→16:14)
[2021-07-21] MEDS: DIAZEPAM 10 MG TABLET PO SCH ×4 (08:43→20:04)
[2021-07-21] MEDS: SERTRALINE HCL 50 MG TABLET PO SCH ×2 (08:43→16:14)
[2021-07-21] MEDS: LISINOPRIL 20 MG TABLET PO SCH (08:43)
[2021-07-21] MEDS: AmLODIPine BESYLATE 10 MG TABLET PO SCH (08:43)
[2021-07-21] MEDS: PROPRANOLOL HCL 20 MG TABLET PO SCH (08:43)
[2021-07-21] MEDS: QUEtiapine FUMARATE 100 MG TABLET PO PRN (21:09)
[2021-07-21] MEDS: LORazepam 2 MG TABLET PO PRN (21:09)
[2021-07-22 01:11] VITALS: BP 127/81
[2021-07-22 01:30] VITALS: BP 127/81
[2021-07-22 05:58] VITALS: BP 139/93
[2021-07-22] MEDS: DIAZEPAM 10 MG TABLET PO PRN ×2 (06:03→23:42)
[2021-07-22] MEDS: LEVOTHYROXINE SODIUM 50 MCG TABLET PO SCH (07:02)
[2021-07-22 08:12] VITALS: BP 148/115
[2021-07-22] MEDS: SERTRALINE HCL 50 MG TABLET PO SCH ×2 (08:43→16:17)
[2021-07-22] MEDS: LISINOPRIL 20 MG TABLET PO SCH (08:43)
[2021-07-22] MEDS: AmLODIPine BESYLATE 10 MG TABLET PO SCH (08:43)
[2021-07-22] MEDS: QUEtiapine FUMARATE 200 MG TABLET PO SCH ×2 (08:43→16:16)
[2021-07-22] MEDS: DIAZEPAM 10 MG TABLET PO SCH ×4 (08:43→20:03)
[2021-07-22] MEDS: PROPRANOLOL HCL 20 MG TABLET PO SCH (08:44)
[2021-07-22] MEDS: LORazepam 2 MG TABLET PO PRN (10:07)
[2021-07-22 10:28] VITALS: BP 136/83
[2021-07-22 16:04] VITALS: BP 127/91
[2021-07-23 01:06] VITALS: BP_SYST 116; BP_DIAS 106; BP_DIAS 11
[2021-07-23] MEDS: DIAZEPAM 10 MG TABLET PO PRN (04:14)
[2021-07-23 04:25] VITALS: BP 116/106
[2021-07-23] MEDS: LEVOTHYROXINE SODIUM 50 MCG TABLET PO SCH (06:13)
[2021-07-23] MEDS ORDERED: DIAZEPAM 5 MG TABLET PO PRN (07:00)
[2021-07-23 07:08] LABS: COVID AG,FIA SOURCE NASOPHARYNGEAL
[2021-07-23 08:04] VITALS: BP 156/96
[2021-07-23 08:30] VITALS: BP 156/96
[2021-07-23] MEDS: PROPRANOLOL HCL 20 MG TABLET PO SCH (09:18)
[2021-07-23] MEDS: QUEtiapine FUMARATE 200 MG TABLET PO SCH ×2 (09:19→16:34)
[2021-07-23] MEDS: AmLODIPine BESYLATE 10 MG TABLET PO SCH (09:19)
[2021-07-23] MEDS: SERTRALINE HCL 50 MG TABLET PO SCH ×2 (09:20→16:33)
[2021-07-23] MEDS: LISINOPRIL 20 MG TABLET PO SCH (09:20)
[2021-07-23] MEDS: DIAZEPAM 5 MG TABLET PO SCH ×4 (09:20→20:31)
[2021-07-23 16:03] VITALS: BP 116/79
[2021-07-24 01:10] VITALS: BP 137/90
[2021-07-24] MEDS: LEVOTHYROXINE SODIUM 50 MCG TABLET PO SCH (06:23)
[2021-07-24] MEDS ORDERED: DIAZEPAM 5 MG TABLET PO PRN (07:00)
[2021-07-24] MEDS ORDERED: SERT-158 PO (07:48)
[2021-07-24 08:11] VITALS: BP 129/86
[2021-07-24] MEDS: AmLODIPine BESYLATE 10 MG TABLET PO SCH (08:57)
[2021-07-24] MEDS: LISINOPRIL 20 MG TABLET PO SCH (08:57)
[2021-07-24] MEDS: QUEtiapine FUMARATE 100 MG TABLET PO PRN (08:57)
[2021-07-24] MEDS: PROPRANOLOL HCL 20 MG TABLET PO SCH (08:57)
[2021-07-24] MEDS: SERTRALINE HCL 50 MG TABLET PO SCH (08:57)
[2021-07-24] MEDS: QUEtiapine FUMARATE 200 MG TABLET PO SCH (09:00)
== END 2021-07-24 13:51 | disposition home or self-care (01) | DRG 750 ==
LOC: EMS 13:56 → B2S 16:00
PROVIDERS: ADMIT Psychiatry & Neurology Child & Adolescent Psychiatry; ATTEND Psychiatry & Neurology Child & Adolescent Psychiatry
DX: F25.1 Schizoaffective disorder, depressive type (principal); R45.851 Suicidal ideations; Z91.19 Patient's noncompliance with other medical treatment and regimen; E03.9 Hypothyroidism, unspecified; Z20.822 Contact with and (suspected) exposure to COVID-19; E78.5 Hyperlipidemia, unspecified; F10.10 Alcohol abuse, uncomplicated; I10 Essential (primary) hypertension; F41.9 Anxiety disorder, unspecified; Y90.6 Blood alcohol level of 120-199 mg/100 ml; Z59.9 Problem related to housing and economic circumstances, unspecified; Z79.899 Other long term (current) drug therapy; Z87.891 Personal history of nicotine dependence
CPT/HCPCS: 80053; 80061; 84439; 84443; 85025; 87081; 99285; G0480; G0481

== ENCOUNTER 2021-08-02 15:36 | Inpatient (IN) | payer MEDICAID ==
[~2021-08-02] VITALS: Ht 182.9 cm; Wt 102.5 kg
[~2021-08-02 15:36] MED LIST changes: -GABA-1181 PO
[2021-08-02] MEDS ORDERED: ZOLPIDEM TARTRATE 10 MG TABLET PO PRN (17:15)
[2021-08-02] MEDS ORDERED: HALOPERIDOL 5 MG TABLET PO PRN (17:15)
[2021-08-02] MEDS ORDERED: QUEtiapine FUMARATE 100 MG TABLET PO ONE (17:45)
[2021-08-02] MEDS ORDERED: LORazepam 2 MG TABLET PO ONE (17:45)
[2021-08-02 18:19] LABS: BASOPHILS % (AUTO) 1.4 % (0.0-2.0); EOSINOPHILS % (AUTO) 4.8 % (1.0-6.0); HEMATOCRIT 47.7 % (41-53); LYMPHOCYTES # (AUTO) 2.5 K/uL (1.0-4.8); LYMPHOCYTES % (AUTO) 37.4 % (22.0-44.0); MEAN CORPUSCULAR HEMOGLOBIN 31.6 pg (26.0-34.0); MEAN CORPUSCULAR HGB CONC 33.6 G/dL (31.0-37.0); MEAN CORPUSCULAR VOLUME 94 fL (80-100); MONOCYTES # (AUTO) 0.6 K/uL (0.1-1.0); MONOCYTES % (AUTO) 9.1 % (2.0-9.0); NEUTROPHILS # (AUTO) 3.1 K/uL (1.8-7.7); NEUTROPHILS % (AUTO) 47.3 % (40.0-70.0); PLATELET COUNT (AUTO) 237 K/uL (150-450); RED BLOOD CELL COUNT(AUTO) 5.08 MIL/uL (4.50-5.90); RED CELL DISTRIBUTION WIDTH 13.8 % (11.5-14.5)
[2021-08-02 18:24] LABS: AMPHET/METH SCREEN,URINE NEGATIVE (NEGATIVE); BARBITURATE SCREEN, URINE NEGATIVE (NEGATIVE); BENZODIAZEPINES SCREEN,URINE POSITIVE (NEGATIVE); CANNABINOID SCREEN,URINE POSITIVE (NEGATIVE); COCAINE SCREEN,URINE NEGATIVE (NEGATIVE); METHADONE SCREEN, URINE NEGATIVE (NEGATIVE); OPIATE SCREEN,URINE NEGATIVE (NEGATIVE)
[2021-08-02 18:26] LABS: PHENCYCLIDINE SCREEN,URINE NEGATIVE (NEGATIVE)
[2021-08-02 18:27] LABS: ANION GAP 13 mmol/L (8-16); CALCIUM, TOTAL 8.9 mg/dL (8.8-10.5); CARBON DIOXIDE 27 mmol/L (22-29); CHLORIDE 104 mmol/L (98-107); CREATININE 0.96 mg/dL (0.60-1.30); GLOMERULAR FILTR. RATE CALC > 60 mL/min (>60); GLUCOSE,RANDOM 143 mg/dL (70-110); SODIUM SERUM 144 mmol/L (136-145); UREA NITROGEN, BLOOD 12 mg/dL (7-18)
[2021-08-02 18:33] LABS: ALANINE AMINOTRANSFERASE 42 U/L (12-78); ALBUMIN 3.7 g/dL (3.4-5.0); ALKALINE PHOSPHATASE 71 U/L (46-116); ASPARTATE AMINOTRANSFERASE 33 U/L (15-37); BILIRUBIN,TOTAL 0.2 mg/dL (0.1-1.0); TOTAL PROTEIN, SERUM 7.5 g/dL (6.4-8.2)
[2021-08-02 19:09] LABS: APPEARANCE,URINE CLEAR (CLEAR); BILIRUBIN,URINE NEGATIVE (NEGATIVE); GLUCOSE, URINE (UA) NEGATIVE (NEGATIVE); KETONES,URINE NEGATIVE (NEGATIVE); LEUKOCYTE ESTERASE ,URINE NEGATIVE (NEGATIVE); NITRATE,URINE NEGATIVE (NEGATIVE); OCCULT BLOOD,URINE NEGATIVE (NEGATIVE); PROTEIN,URINE NEGATIVE (NEGATIVE); UROBILINOGEN,URINE 0.2 mg/dL (<=1.0)
[2021-08-02 19:12] LABS: COVID AG,FIA SOURCE NASOPHARYNGEAL
[2021-08-02 22:00] VITALS: BP 146/98
[2021-08-03 06:52] LABS: CHOL/HDL RATIO 2.9 (4.2-7.3); FREE T4 (FREE THYROXINE) 0.7 ng/dL (0.76-1.46); THYROID STIMULATING HORMONE 6.61 uIU/mL (0.36-3.74)
[2021-08-03 08:18] VITALS: BP 167/115
[2021-08-03] MEDS ORDERED: MAGNESIUM HYDROXIDE SUSPENSION 30 ML UDCUP PO PRN (09:15)
[2021-08-03] MEDS ORDERED: PETROLATUM,WHITE 28 GM JELLY TP PRN (09:15)
[2021-08-03] MEDS ORDERED: ONDANSETRON HCL 4 MG TABLET PO PRN (09:15)
[2021-08-03] MEDS ORDERED: LOPERAMIDE HCL 2 MG CAPSULE PO PRN (09:15)
[2021-08-03] MEDS ORDERED: NICOTINE 14 MG/24 HOUR PATCH TD PRN (09:15)
[2021-08-03] MEDS ORDERED: GuaiFENesin/D-METHORPHAN [SUGAR-FREE] 200-20MG/10 ML SYRUP UDCUP PO PRN (09:15)
[2021-08-03] MEDS ORDERED: DOCUSATE SODIUM 100 MG CAPSULE PO PRN (09:15)
[2021-08-03] MEDS ORDERED: ACETAMINOPHEN 325 MG TABLET PO PRN (09:15)
[2021-08-03] MEDS ORDERED: IBUPROFEN 400 MG TABLET PO PRN (09:15)
[2021-08-03] MEDS ORDERED: MAG HYDROX/AL HYDROX/SIMETH ES 30 ML SUSPENSION UDCUP PO PRN (09:15)
[2021-08-03] MEDS ORDERED: ALBUTEROL SULFATE HFA 90 MCG/PUFF 8 GM INHALER IH PRN (09:15)
[2021-08-03] MEDS ORDERED: CloNIDine HCL 0.1 MG TABLET PO PRN (09:15)
[2021-08-03] MEDS: LORazepam 2 MG TABLET PO PRN ×2 (10:40→15:29)
[2021-08-03] MEDS ORDERED: DIAZEPAM 10 MG TABLET PO PRN (11:45)
[2021-08-03 15:31] VITALS: BP 140/100
[2021-08-03] MEDS: QUEtiapine FUMARATE 200 MG TABLET PO SCH (16:56)
[2021-08-03] MEDS: SERTRALINE HCL 50 MG TABLET PO SCH (16:56)
[2021-08-03 17:06] VITALS: BP 139/78
[2021-08-04] VITALS (7 sets, daily range): BP systolic 138–154; BP diastolic 79–99
[2021-08-04] MEDS: LEVOTHYROXINE SODIUM 50 MCG TABLET PO SCH (06:31)
[2021-08-04] MEDS ORDERED: DIAZEPAM 10 MG TABLET PO PRN (07:00)
[2021-08-04] MEDS: SERTRALINE HCL 50 MG TABLET PO SCH ×2 (08:38→16:50)
[2021-08-04] MEDS: DIAZEPAM 10 MG TABLET PO SCH ×4 (08:38→21:21)
[2021-08-04] MEDS: AmLODIPine BESYLATE 10 MG TABLET PO SCH (08:38)
[2021-08-04] MEDS: QUEtiapine FUMARATE 200 MG TABLET PO SCH ×2 (08:38→16:49)
[2021-08-04] MEDS: LISINOPRIL 20 MG TABLET PO SCH (08:38)
[2021-08-04] MEDS: PROPRANOLOL HCL 20 MG TABLET PO SCH (08:39)
[2021-08-05 01:00] VITALS: BP 127/97
[2021-08-05] MEDS: LORazepam 2 MG TABLET PO PRN (01:19)
[2021-08-05] MEDS: LEVOTHYROXINE SODIUM 50 MCG TABLET PO SCH (06:50)
[2021-08-05 08:15] VITALS: BP 148/100
[2021-08-05] MEDS: QUEtiapine FUMARATE 200 MG TABLET PO SCH (08:50)
[2021-08-05] MEDS: DIAZEPAM 10 MG TABLET PO SCH ×2 (08:50→12:36)
[2021-08-05] MEDS: LISINOPRIL 20 MG TABLET PO SCH (08:50)
[2021-08-05] MEDS: SERTRALINE HCL 50 MG TABLET PO SCH (08:50)
[2021-08-05] MEDS: PROPRANOLOL HCL 20 MG TABLET PO SCH (08:51)
[2021-08-05] MEDS: AmLODIPine BESYLATE 10 MG TABLET PO SCH (08:51)
[2021-08-06] MEDS ORDERED: DIAZEPAM 5 MG TABLET PO PRN (07:00)
[2021-08-06] MEDS ORDERED: DIAZEPAM 5 MG TABLET PO SCH (09:00)
[2021-08-07] MEDS ORDERED: DIAZEPAM 5 MG TABLET PO PRN (07:00)
== END 2021-08-05 14:00 | disposition home or self-care (01) | DRG 750 ==
LOC: EMS 15:37 → 3EI 21:00
PROVIDERS: ADMIT Psychiatry & Neurology Child & Adolescent Psychiatry; ATTEND Psychiatry & Neurology Child & Adolescent Psychiatry
DX: F25.1 Schizoaffective disorder, depressive type (principal); R45.851 Suicidal ideations; Z59.00 Homelessness unspecified; E03.9 Hypothyroidism, unspecified; E66.9 Obesity, unspecified; E78.5 Hyperlipidemia, unspecified; F10.10 Alcohol abuse, uncomplicated; Z20.822 Contact with and (suspected) exposure to COVID-19; I10 Essential (primary) hypertension; Z87.891 Personal history of nicotine dependence; Z68.30 Body mass index [BMI] 30.0-30.9, adult
CPT/HCPCS: 80053; 80061; 81003; 84439; 84443; 85025; 87081; 99285; G0480

== ENCOUNTER 2021-08-21 17:14 | Inpatient (IN) | payer MEDICAID ==
[~2021-08-21] VITALS: Ht 182.9 cm; Wt 103.0 kg
[2021-08-21] MEDS ORDERED: HALOPERIDOL 5 MG TABLET PO PRN (20:30)
[2021-08-21 20:44] LABS: BASOPHILS % (AUTO) 0.9 % (0.0-2.0); EOSINOPHILS % (AUTO) 1.8 % (1.0-6.0); HEMATOCRIT 46.2 % (41-53); HEMOGLOBIN 15.8 g/dL (13.5-17.5); LYMPHOCYTES # (AUTO) 2.1 K/uL (1.0-4.8); LYMPHOCYTES % (AUTO) 29.9 % (22.0-44.0); MEAN CORPUSCULAR HEMOGLOBIN 31.9 pg (26.0-34.0); MEAN CORPUSCULAR HGB CONC 34.2 G/dL (31.0-37.0); MEAN CORPUSCULAR VOLUME 93 fL (80-100); MONOCYTES # (AUTO) 0.6 K/uL (0.1-1.0); MONOCYTES % (AUTO) 8.5 % (2.0-9.0); NEUTROPHILS # (AUTO) 4.1 K/uL (1.8-7.7); NEUTROPHILS % (AUTO) 58.9 % (40.0-70.0); PLATELET COUNT (AUTO) 202 K/uL (150-450); RED BLOOD CELL COUNT(AUTO) 4.96 MIL/uL (4.50-5.90); RED CELL DISTRIBUTION WIDTH 15.1 % (11.5-14.5)
[2021-08-21 20:50] LABS: AMPHET/METH SCREEN,URINE NEGATIVE (NEGATIVE); BARBITURATE SCREEN, URINE NEGATIVE (NEGATIVE); BENZODIAZEPINES SCREEN,URINE POSITIVE (NEGATIVE); CANNABINOID SCREEN,URINE POSITIVE (NEGATIVE); COCAINE SCREEN,URINE NEGATIVE (NEGATIVE); METHADONE SCREEN, URINE NEGATIVE (NEGATIVE); OPIATE SCREEN,URINE NEGATIVE (NEGATIVE)
[2021-08-21 20:51] LABS: COVID AG,FIA SOURCE NASOPHARYNGEAL
[2021-08-21 20:59] LABS: PHENCYCLIDINE SCREEN,URINE NEGATIVE (NEGATIVE)
[2021-08-21 21:04] LABS: ANION GAP 15 mmol/L (8-16); CALCIUM, TOTAL 8.4 mg/dL (8.8-10.5); CARBON DIOXIDE 24 mmol/L (22-29); CHLORIDE 99 mmol/L (98-107); CREATININE 0.88 mg/dL (0.60-1.30); GLOMERULAR FILTR. RATE CALC > 60 mL/min (>60); GLUCOSE,RANDOM 117 mg/dL (70-110); SODIUM SERUM 138 mmol/L (136-145); UREA NITROGEN, BLOOD 10 mg/dL (7-18)
[2021-08-21 21:15] LABS: ALANINE AMINOTRANSFERASE 189 U/L (12-78); ALBUMIN 3.8 g/dL (3.4-5.0); ALKALINE PHOSPHATASE 81 U/L (46-116); ASPARTATE AMINOTRANSFERASE 233 U/L (15-37); FREE T4 (FREE THYROXINE) 0.87 ng/dL (0.76-1.46); THYROID STIMULATING HORMONE 7.68 uIU/mL (0.36-3.74); TOTAL PROTEIN, SERUM 7.6 g/dL (6.4-8.2)
[2021-08-21 21:23] LABS: ACETAMINOPHEN < 2 mcg/mL (10-30)
[2021-08-21 21:40] LABS: SALICYLATE 1.4 mg/dL (2.8-20.0)
[2021-08-22] MEDS: LORazepam 2 MG TABLET PO PRN ×3 (00:20→10:08)
[2021-08-22] MEDS ORDERED: THIAMINE 100 MG TABLET PO ONE (01:00)
[2021-08-22] MEDS ORDERED: PROPRANOLOL HCL 10 MG TABLET PO ONE (01:00)
[2021-08-22] MEDS ORDERED: FOLIC ACID 1 MG TABLET PO ONE (01:00)
[2021-08-22 01:59] VITALS: BP 164/121
[2021-08-22 03:30] LABS: APPEARANCE,URINE TURBID (CLEAR); BILIRUBIN,URINE NEGATIVE (NEGATIVE); GLUCOSE, URINE (UA) NEGATIVE (NEGATIVE); KETONES,URINE TRACE mg/dL (NEGATIVE); LEUKOCYTE ESTERASE ,URINE NEGATIVE (NEGATIVE); NITRATE,URINE NEGATIVE (NEGATIVE); OCCULT BLOOD,URINE NEGATIVE (NEGATIVE); PROTEIN,URINE NEGATIVE (NEGATIVE)
[2021-08-22 03:37] LABS: BACTERIA,URINE Many /HPF (None Seen); RBC,URINE 0-2 /HPF (0-2); WBC,URINE 0-2 /HPF (0-5)
[2021-08-22 03:38] LABS: AMORPHOUS SEDIMENT,UR Many /LPF (None Seen)
[2021-08-22] MEDS ORDERED: PNEUMOCOCCAL VACCINE POLYVALENT 0.5 ML VIAL [PPSV23] IM. ONE (04:30)
[2021-08-22] MEDS ORDERED: INFLUENZA VIRUS VACCINE QVS 2021-22 (6MO+)/PF 60 MCG/0.5 ML SYRINGE IM. ONE (04:30)
[2021-08-22 04:55] VITALS: BP 162/107
[2021-08-22 08:00] VITALS: BP 160/100
[2021-08-22] MEDS: THIAMINE 100 MG TABLET PO SCH (08:07)
[2021-08-22] MEDS: PROPRANOLOL HCL 20 MG TABLET PO SCH (08:07)
[2021-08-22] MEDS: FOLIC ACID 1 MG TABLET PO SCH (08:07)
[2021-08-22 09:28] VITALS: BP 165/105
[2021-08-22 11:00] VITALS: BP 137/90
[2021-08-22] MEDS ORDERED: ACETAMINOPHEN 325 MG TABLET PO PRN (12:45)
[2021-08-22] MEDS ORDERED: IBUPROFEN 400 MG TABLET PO PRN (12:45)
[2021-08-22] MEDS ORDERED: PETROLATUM,WHITE 28 GM JELLY TP PRN (12:45)
[2021-08-22] MEDS ORDERED: ALBUTEROL SULFATE HFA 90 MCG/PUFF 8 GM INHALER IH PRN (12:45)
[2021-08-22] MEDS ORDERED: GuaiFENesin/D-METHORPHAN [SUGAR-FREE] 200-20MG/10 ML SYRUP UDCUP PO PRN (12:45)
[2021-08-22] MEDS ORDERED: LOPERAMIDE HCL 2 MG CAPSULE PO PRN (12:45)
[2021-08-22] MEDS ORDERED: NICOTINE 14 MG/24 HOUR PATCH TD PRN (12:45)
[2021-08-22] MEDS ORDERED: ONDANSETRON HCL 4 MG TABLET PO PRN (12:45)
[2021-08-22] MEDS ORDERED: CloNIDine HCL 0.1 MG TABLET PO PRN (12:45)
[2021-08-22] MEDS ORDERED: MAGNESIUM HYDROXIDE SUSPENSION 30 ML UDCUP PO PRN (12:45)
[2021-08-22] MEDS ORDERED: MAG HYDROX/AL HYDROX/SIMETH ES 30 ML SUSPENSION UDCUP PO PRN (12:45)
[2021-08-22] MEDS ORDERED: DOCUSATE SODIUM 100 MG CAPSULE PO PRN (12:45)
[2021-08-22] MEDS: QUEtiapine FUMARATE 200 MG TABLET PO SCH (16:31)
[2021-08-22] MEDS: SERTRALINE HCL 50 MG TABLET PO SCH (16:31)
[2021-08-22 18:24] VITALS: BP 138/98
[2021-08-23] MEDS: LEVOTHYROXINE SODIUM 50 MCG TABLET PO SCH (06:45)
[2021-08-23 08:00] VITALS: BP 163/103
[2021-08-23] MEDS: PROPRANOLOL HCL 20 MG TABLET PO SCH ×2 (09:00→09:27)
[2021-08-23] MEDS: LISINOPRIL 20 MG TABLET PO SCH (09:27)
[2021-08-23] MEDS: SERTRALINE HCL 50 MG TABLET PO SCH ×2 (09:27→16:05)
[2021-08-23] MEDS: THIAMINE 100 MG TABLET PO SCH (09:27)
[2021-08-23] MEDS: FOLIC ACID 1 MG TABLET PO SCH (09:27)
[2021-08-23] MEDS: QUEtiapine FUMARATE 200 MG TABLET PO SCH ×2 (09:27→16:05)
[2021-08-23] MEDS: AmLODIPine BESYLATE 10 MG TABLET PO SCH (09:27)
[2021-08-23 16:18] VITALS: BP 125/82
[2021-08-23] MEDS: LORazepam 2 MG TABLET PO PRN ×2 (16:28→21:41)
[2021-08-23] MEDS ORDERED: ARIPiprazole ER SUSPENSION 400 MG PRE-FILLED DUAL CHAMBER SYRINGE IM SCH (17:15)
[2021-08-23] MEDS: GABAPENTIN 300 MG CAPSULE PO SCH ×2 (17:58→20:10)
[2021-08-24 01:05] VITALS: BP 138/80
[2021-08-24] MEDS: ZOLPIDEM TARTRATE 10 MG TABLET PO PRN ×2 (01:16→21:06)
[2021-08-24 02:30] VITALS: BP 148/98
[2021-08-24] MEDS: LORazepam 2 MG TABLET PO PRN ×3 (02:45→19:54)
[2021-08-24] MEDS: LEVOTHYROXINE SODIUM 50 MCG TABLET PO SCH (06:42)
[2021-08-24 08:00] VITALS: BP 126/90
[2021-08-24] MEDS: PROPRANOLOL HCL 20 MG TABLET PO SCH (08:53)
[2021-08-24] MEDS: LISINOPRIL 20 MG TABLET PO SCH (08:53)
[2021-08-24] MEDS: QUEtiapine FUMARATE 200 MG TABLET PO SCH ×2 (08:53→16:45)
[2021-08-24] MEDS: SERTRALINE HCL 50 MG TABLET PO SCH ×2 (08:53→16:45)
[2021-08-24] MEDS: THIAMINE 100 MG TABLET PO SCH (08:53)
[2021-08-24] MEDS: GABAPENTIN 300 MG CAPSULE PO SCH ×4 (08:53→20:38)
[2021-08-24] MEDS: FOLIC ACID 1 MG TABLET PO SCH (08:53)
[2021-08-24] MEDS: AmLODIPine BESYLATE 10 MG TABLET PO SCH (09:02)
[2021-08-24 15:46] VITALS: BP 133/98
[2021-08-24 16:00] VITALS: BP 133/98
[2021-08-25 04:00] VITALS: BP 153/100
[2021-08-25] MEDS: LORazepam 2 MG TABLET PO PRN ×3 (04:05→17:22)
[2021-08-25] MEDS: LEVOTHYROXINE SODIUM 50 MCG TABLET PO SCH (06:09)
[2021-08-25 08:00] VITALS: BP 156/100
[2021-08-25] MEDS: AmLODIPine BESYLATE 10 MG TABLET PO SCH (08:39)
[2021-08-25] MEDS: GABAPENTIN 300 MG CAPSULE PO SCH ×4 (08:40→20:23)
[2021-08-25] MEDS: PROPRANOLOL HCL 20 MG TABLET PO SCH (08:40)
[2021-08-25] MEDS: LISINOPRIL 20 MG TABLET PO SCH (08:40)
[2021-08-25] MEDS: QUEtiapine FUMARATE 200 MG TABLET PO SCH ×2 (08:40→16:22)
[2021-08-25] MEDS: SERTRALINE HCL 50 MG TABLET PO SCH ×2 (08:57→16:22)
[2021-08-25] MEDS: THIAMINE 100 MG TABLET PO SCH (08:57)
[2021-08-25] MEDS: FOLIC ACID 1 MG TABLET PO SCH (08:57)
[2021-08-25 14:10] VITALS: BP 171/92
[2021-08-25 17:37] VITALS: BP 154/92
[2021-08-26] MEDS: LEVOTHYROXINE SODIUM 50 MCG TABLET PO SCH (06:13)
[2021-08-26 08:58] VITALS: BP 147/95
[2021-08-26] MEDS: PROPRANOLOL HCL 20 MG TABLET PO SCH (09:36)
[2021-08-26] MEDS: QUEtiapine FUMARATE 200 MG TABLET PO SCH ×2 (09:36→16:21)
[2021-08-26] MEDS: GABAPENTIN 300 MG CAPSULE PO SCH ×4 (09:37→20:09)
[2021-08-26] MEDS: THIAMINE 100 MG TABLET PO SCH (09:37)
[2021-08-26] MEDS: AmLODIPine BESYLATE 10 MG TABLET PO SCH (09:37)
[2021-08-26] MEDS: SERTRALINE HCL 50 MG TABLET PO SCH ×2 (09:37→16:21)
[2021-08-26] MEDS: LISINOPRIL 20 MG TABLET PO SCH (09:37)
[2021-08-26] MEDS: FOLIC ACID 1 MG TABLET PO SCH (09:37)
[2021-08-26 14:00] VITALS: BP 148/86
[2021-08-26] MEDS: LORazepam 2 MG TABLET PO PRN ×2 (14:09→18:53)
[2021-08-26 16:47] VITALS: BP 143/9
[2021-08-27] MEDS: LORazepam 2 MG TABLET PO PRN ×2 (05:39→15:59)
[2021-08-27] MEDS: LEVOTHYROXINE SODIUM 50 MCG TABLET PO SCH (06:32)
[2021-08-27 08:43] VITALS: BP 134/97
[2021-08-27] MEDS: PROPRANOLOL HCL 20 MG TABLET PO SCH (11:00)
[2021-08-27] MEDS: GABAPENTIN 300 MG CAPSULE PO SCH ×4 (11:00→20:30)
[2021-08-27] MEDS: QUEtiapine FUMARATE 200 MG TABLET PO SCH ×2 (11:00→16:25)
[2021-08-27] MEDS: AmLODIPine BESYLATE 10 MG TABLET PO SCH (11:00)
[2021-08-27] MEDS: THIAMINE 100 MG TABLET PO SCH (11:00)
[2021-08-27] MEDS: FOLIC ACID 1 MG TABLET PO SCH (11:01)
[2021-08-27] MEDS: SERTRALINE HCL 50 MG TABLET PO SCH ×2 (11:01→16:25)
[2021-08-27] MEDS: LISINOPRIL 20 MG TABLET PO SCH (11:01)
[2021-08-27 15:32] LABS: COVID AG,FIA SOURCE NASOPHARYNGEAL
[2021-08-27 15:59] VITALS: BP 120/72
[2021-08-27 17:05] VITALS: BP 120/72
[2021-08-28] MEDS: LORazepam 2 MG TABLET PO PRN ×2 (03:19→08:16)
[2021-08-28 03:26] VITALS: BP 152/96
[2021-08-28] MEDS: LEVOTHYROXINE SODIUM 50 MCG TABLET PO SCH (06:16)
[2021-08-28] MEDS: GABAPENTIN 300 MG CAPSULE PO SCH ×2 (08:14→12:37)
[2021-08-28] MEDS: FOLIC ACID 1 MG TABLET PO SCH (08:14)
[2021-08-28] MEDS: PROPRANOLOL HCL 20 MG TABLET PO SCH (08:14)
[2021-08-28] MEDS: QUEtiapine FUMARATE 200 MG TABLET PO SCH (08:14)
[2021-08-28] MEDS: AmLODIPine BESYLATE 10 MG TABLET PO SCH (08:14)
[2021-08-28] MEDS: LISINOPRIL 20 MG TABLET PO SCH (08:14)
[2021-08-28] MEDS: SERTRALINE HCL 50 MG TABLET PO SCH (08:14)
[2021-08-28] MEDS: THIAMINE 100 MG TABLET PO SCH (08:14)
[2021-08-28 08:41] VITALS: BP 124/94
[2021-08-28] MEDS ORDERED: GABA-1216 PO (12:01)
[2021-08-28] MEDS ORDERED: GABA-1181 PO ×4 (12:02→12:05)
== END 2021-08-28 14:25 | disposition home or self-care (01) | DRG 750 ==
LOC: EMS 17:16 → 3EI 20:27
PROVIDERS: ADMIT Psychiatry & Neurology Child & Adolescent Psychiatry; ATTEND Psychiatry & Neurology Child & Adolescent Psychiatry
DX: F25.1 Schizoaffective disorder, depressive type (principal); R45.851 Suicidal ideations; Z91.14 Patient's other noncompliance with medication regimen; F32.9 Major depressive disorder, single episode, unspecified; E03.9 Hypothyroidism, unspecified; E78.5 Hyperlipidemia, unspecified; F12.90 Cannabis use, unspecified, uncomplicated; F17.200 Nicotine dependence, unspecified, uncomplicated; Z20.822 Contact with and (suspected) exposure to COVID-19; I10 Essential (primary) hypertension; Z71.6 Tobacco abuse counseling
CPT/HCPCS: 80053; 81001; 84439; 84443; 84481; 85025; 87081; 87086; 99285; G0480; G0481; J0401

== ENCOUNTER 2021-09-01 15:05 | Inpatient (IN) | payer MEDICAID ==
[~2021-09-01] VITALS: Ht 182.9 cm; Wt 103.4 kg
[~2021-09-01 15:05] MED LIST changes: +GABA-1181 PO
[2021-09-01] MEDS ORDERED: ALPRAZolam 1 MG TABLET PO ONE (15:45)
[2021-09-01 16:17] LABS: BASOPHILS % (AUTO) 1.5 % (0.0-2.0); EOSINOPHILS % (AUTO) 2.2 % (1.0-6.0); HEMATOCRIT 42.9 % (41-53); HEMOGLOBIN 14.5 g/dL (13.5-17.5); LYMPHOCYTES % (AUTO) 45.9 % (22.0-44.0); MEAN CORPUSCULAR HEMOGLOBIN 32.3 pg (26.0-34.0); MEAN CORPUSCULAR HGB CONC 33.7 G/dL (31.0-37.0); MEAN CORPUSCULAR VOLUME 96 fL (80-100); MONOCYTES # (AUTO) 0.6 K/uL (0.1-1.0); MONOCYTES % (AUTO) 9.7 % (2.0-9.0); NEUTROPHILS # (AUTO) 2.6 K/uL (1.8-7.7); NEUTROPHILS % (AUTO) 40.7 % (40.0-70.0); PLATELET COUNT (AUTO) 327 K/uL (150-450); RED BLOOD CELL COUNT(AUTO) 4.47 MIL/uL (4.50-5.90); RED CELL DISTRIBUTION WIDTH 15.3 % (11.5-14.5)
[2021-09-01 16:27] LABS: ANION GAP 10 mmol/L (8-16); CALCIUM, TOTAL 8.7 mg/dL (8.8-10.5); CARBON DIOXIDE 28 mmol/L (22-29); CHLORIDE 99 mmol/L (98-107); CREATININE 1.03 mg/dL (0.60-1.30); GLOMERULAR FILTR. RATE CALC > 60 mL/min (>60); GLUCOSE,RANDOM 142 mg/dL (70-110); POTASSIUM 4.4 mmol/L (3.5-5.1); SODIUM SERUM 137 mmol/L (136-145); UREA NITROGEN, BLOOD 10 mg/dL (7-18)
[2021-09-01 16:28] LABS: COVID AG,FIA SOURCE NASOPHARYNGEAL
[2021-09-01 16:33] LABS: ALANINE AMINOTRANSFERASE 32 U/L (12-78); ALBUMIN 3.6 g/dL (3.4-5.0); ALKALINE PHOSPHATASE 84 U/L (46-116); ASPARTATE AMINOTRANSFERASE 20 U/L (15-37); BILIRUBIN,TOTAL 0.2 mg/dL (0.1-1.0); TOTAL PROTEIN, SERUM 7.6 g/dL (6.4-8.2)
[2021-09-01 16:37] LABS: AMPHET/METH SCREEN,URINE NEGATIVE (NEGATIVE); BARBITURATE SCREEN, URINE NEGATIVE (NEGATIVE); BENZODIAZEPINES SCREEN,URINE POSITIVE (NEGATIVE); CANNABINOID SCREEN,URINE POSITIVE (NEGATIVE); COCAINE SCREEN,URINE NEGATIVE (NEGATIVE); METHADONE SCREEN, URINE NEGATIVE (NEGATIVE); OPIATE SCREEN,URINE NEGATIVE (NEGATIVE); PHENCYCLIDINE SCREEN,URINE NEGATIVE (NEGATIVE)
[2021-09-01] MEDS: LORazepam 2 MG TABLET PO PRN (22:06)
[2021-09-02] MEDS: ZOLPIDEM TARTRATE 10 MG TABLET PO PRN (00:42)
[2021-09-02] MEDS: HALOPERIDOL 5 MG TABLET PO PRN ×2 (00:42→16:30)
[2021-09-02 00:45] VITALS: BP 130/82
[2021-09-02] MEDS ORDERED: INFLUENZA VIRUS VACCINE QVS 2021-22 (6MO+)/PF 60 MCG/0.5 ML SYRINGE IM. ONE (01:45)
[2021-09-02 07:43] LABS: CHOL/HDL RATIO 2.7 (4.2-7.3); FREE T4 (FREE THYROXINE) 0.84 ng/dL (0.76-1.46); THYROID STIMULATING HORMONE 7.71 uIU/mL (0.36-3.74)
[2021-09-02 09:39] VITALS: BP 134/88
[2021-09-02] MEDS: SERTRALINE HCL 100 MG TABLET PO SCH (12:04)
[2021-09-02] MEDS: LORazepam 2 MG TABLET PO PRN ×2 (12:04→16:30)
[2021-09-02 16:59] VITALS: BP 146/92
[2021-09-02] MEDS: QUEtiapine FUMARATE 200 MG TABLET PO SCH (20:52)
[2021-09-03] MEDS: LORazepam 2 MG TABLET PO PRN ×2 (06:32→13:20)
[2021-09-03] MEDS: SERTRALINE HCL 100 MG TABLET PO SCH (08:48)
[2021-09-03] MEDS: QUEtiapine FUMARATE 200 MG TABLET PO SCH ×2 (08:48→20:27)
[2021-09-03] MEDS ORDERED: DOCUSATE SODIUM 100 MG CAPSULE PO PRN (09:15)
[2021-09-03] MEDS ORDERED: MAGNESIUM HYDROXIDE SUSPENSION 30 ML UDCUP PO PRN (09:15)
[2021-09-03] MEDS ORDERED: NICOTINE 14 MG/24 HOUR PATCH TD PRN (09:15)
[2021-09-03] MEDS ORDERED: PETROLATUM,WHITE 28 GM JELLY TP PRN (09:15)
[2021-09-03] MEDS ORDERED: ACETAMINOPHEN 325 MG TABLET PO PRN (09:15)
[2021-09-03] MEDS ORDERED: CloNIDine HCL 0.1 MG TABLET PO PRN (09:15)
[2021-09-03] MEDS ORDERED: MAG HYDROX/AL HYDROX/SIMETH ES 30 ML SUSPENSION UDCUP PO PRN (09:15)
[2021-09-03] MEDS ORDERED: ALBUTEROL SULFATE HFA 90 MCG/PUFF 8 GM INHALER IH PRN (09:15)
[2021-09-03] MEDS ORDERED: GuaiFENesin/D-METHORPHAN [SUGAR-FREE] 200-20MG/10 ML SYRUP UDCUP PO PRN (09:15)
[2021-09-03] MEDS ORDERED: IBUPROFEN 400 MG TABLET PO PRN (09:15)
[2021-09-03] MEDS ORDERED: LOPERAMIDE HCL 2 MG CAPSULE PO PRN (09:15)
[2021-09-03] MEDS ORDERED: ONDANSETRON HCL 4 MG TABLET PO PRN (09:15)
[2021-09-03 09:29] VITALS: BP 140/88
[2021-09-03] MEDS: GABAPENTIN 300 MG CAPSULE PO SCH ×3 (13:02→20:27)
[2021-09-03 17:01] VITALS: BP 132/95
[2021-09-04 00:29] VITALS: BP 132/86
[2021-09-04] MEDS: LORazepam 2 MG TABLET PO PRN ×2 (00:29→12:10)
[2021-09-04] MEDS: LEVOTHYROXINE SODIUM 50 MCG TABLET PO SCH (06:52)
[2021-09-04] MEDS: LISINOPRIL 20 MG TABLET PO SCH (08:23)
[2021-09-04] MEDS: GABAPENTIN 300 MG CAPSULE PO SCH ×4 (08:24→19:58)
[2021-09-04] MEDS: SERTRALINE HCL 100 MG TABLET PO SCH (08:24)
[2021-09-04] MEDS: QUEtiapine FUMARATE 200 MG TABLET PO SCH ×2 (08:24→19:58)
[2021-09-04] MEDS: AmLODIPine BESYLATE 10 MG TABLET PO SCH (08:24)
[2021-09-04] MEDS: PROPRANOLOL HCL 20 MG TABLET PO SCH (08:24)
[2021-09-04 08:26] VITALS: BP 136/87
[2021-09-04] MEDS: HALOPERIDOL 5 MG TABLET PO PRN (12:45)
[2021-09-04 16:09] VITALS: BP 120/80
[2021-09-04] MEDS: ZOLPIDEM TARTRATE 10 MG TABLET PO PRN (19:58)
[2021-09-05] MEDS: LEVOTHYROXINE SODIUM 50 MCG TABLET PO SCH (06:24)
[2021-09-05 08:31] VITALS: BP 111/77
[2021-09-05] MEDS: LISINOPRIL 20 MG TABLET PO SCH (08:56)
[2021-09-05] MEDS: GABAPENTIN 300 MG CAPSULE PO SCH ×4 (08:56→20:15)
[2021-09-05] MEDS: QUEtiapine FUMARATE 200 MG TABLET PO SCH ×2 (08:56→20:15)
[2021-09-05] MEDS: AmLODIPine BESYLATE 10 MG TABLET PO SCH (08:56)
[2021-09-05] MEDS: SERTRALINE HCL 100 MG TABLET PO SCH (08:56)
[2021-09-05] MEDS: PROPRANOLOL HCL 20 MG TABLET PO SCH (08:56)
[2021-09-05] MEDS: LORazepam 2 MG TABLET PO PRN ×2 (13:13→22:54)
[2021-09-05 16:00] VITALS: BP 106/69
[2021-09-06] MEDS: LEVOTHYROXINE SODIUM 50 MCG TABLET PO SCH (06:46)
[2021-09-06 08:00] VITALS: BP 162/96
[2021-09-06] MEDS: LISINOPRIL 20 MG TABLET PO SCH (08:08)
[2021-09-06] MEDS: AmLODIPine BESYLATE 10 MG TABLET PO SCH (08:08)
[2021-09-06] MEDS: LORazepam 2 MG TABLET PO PRN ×2 (08:08→14:51)
[2021-09-06] MEDS: PROPRANOLOL HCL 20 MG TABLET PO SCH (08:08)
[2021-09-06] MEDS: QUEtiapine FUMARATE 200 MG TABLET PO SCH ×2 (08:08→20:42)
[2021-09-06] MEDS: GABAPENTIN 300 MG CAPSULE PO SCH ×4 (08:08→20:42)
[2021-09-06] MEDS: SERTRALINE HCL 100 MG TABLET PO SCH (08:08)
[2021-09-06 16:58] VITALS: BP 126/76
[2021-09-07 00:07] VITALS: BP 126/84
[2021-09-07] MEDS: ZOLPIDEM TARTRATE 10 MG TABLET PO PRN (00:07)
[2021-09-07] MEDS: LEVOTHYROXINE SODIUM 50 MCG TABLET PO SCH (06:07)
[2021-09-07 08:00] VITALS: BP 144/96
[2021-09-07] MEDS: LISINOPRIL 20 MG TABLET PO SCH (09:46)
[2021-09-07] MEDS: GABAPENTIN 300 MG CAPSULE PO SCH ×4 (09:46→21:00)
[2021-09-07] MEDS: AmLODIPine BESYLATE 10 MG TABLET PO SCH (09:46)
[2021-09-07] MEDS: QUEtiapine FUMARATE 200 MG TABLET PO SCH ×2 (09:46→21:00)
[2021-09-07] MEDS: SERTRALINE HCL 100 MG TABLET PO SCH (09:46)
[2021-09-07] MEDS: PROPRANOLOL HCL 20 MG TABLET PO SCH (09:46)
[2021-09-07] MEDS ORDERED: HydrOXYzine PAMOATE 50 MG CAPSULE PO PRN (12:30)
[2021-09-07 15:03] LABS: COVID AG,FIA SOURCE NASOPHARYNGEAL
[2021-09-07 17:21] VITALS: BP 119/79
[2021-09-08 02:55] VITALS: BP 117/78
[2021-09-08] MEDS: ZOLPIDEM TARTRATE 10 MG TABLET PO PRN (02:59)
[2021-09-08] MEDS: HALOPERIDOL 5 MG TABLET PO PRN (02:59)
[2021-09-08] MEDS: LEVOTHYROXINE SODIUM 50 MCG TABLET PO SCH (07:03)
[2021-09-08 08:00] VITALS: BP 148/98
[2021-09-08] MEDS: QUEtiapine FUMARATE 200 MG TABLET PO SCH ×2 (08:16→20:09)
[2021-09-08] MEDS: PROPRANOLOL HCL 20 MG TABLET PO SCH (08:16)
[2021-09-08] MEDS: SERTRALINE HCL 100 MG TABLET PO SCH (08:16)
[2021-09-08] MEDS: LISINOPRIL 20 MG TABLET PO SCH (08:16)
[2021-09-08] MEDS: AmLODIPine BESYLATE 10 MG TABLET PO SCH (08:16)
[2021-09-08] MEDS: GABAPENTIN 300 MG CAPSULE PO SCH ×4 (08:16→20:09)
[2021-09-08 16:30] VITALS: BP 114/79
[2021-09-09] MEDS: ZOLPIDEM TARTRATE 10 MG TABLET PO PRN (01:24)
[2021-09-09 01:25] VITALS: BP 140/96
[2021-09-09] MEDS: LEVOTHYROXINE SODIUM 50 MCG TABLET PO SCH (06:49)
[2021-09-09] MEDS: QUEtiapine FUMARATE 200 MG TABLET PO SCH ×2 (08:32→20:27)
[2021-09-09] MEDS: LISINOPRIL 20 MG TABLET PO SCH (08:32)
[2021-09-09] MEDS: SERTRALINE HCL 100 MG TABLET PO SCH (08:32)
[2021-09-09] MEDS: GABAPENTIN 300 MG CAPSULE PO SCH ×4 (08:32→20:27)
[2021-09-09] MEDS: PROPRANOLOL HCL 20 MG TABLET PO SCH (08:33)
[2021-09-09] MEDS: AmLODIPine BESYLATE 10 MG TABLET PO SCH (08:33)
[2021-09-09] MEDS: HALOPERIDOL 5 MG TABLET PO PRN (12:40)
[2021-09-09 13:07] VITALS: BP 111/65
[2021-09-09 16:00] VITALS: BP 134/80
[2021-09-10] MEDS: LEVOTHYROXINE SODIUM 50 MCG TABLET PO SCH (06:23)
[2021-09-10] MEDS: LISINOPRIL 20 MG TABLET PO SCH (08:13)
[2021-09-10] MEDS: QUEtiapine FUMARATE 200 MG TABLET PO SCH ×2 (08:13→20:22)
[2021-09-10] MEDS: PROPRANOLOL HCL 20 MG TABLET PO SCH (08:13)
[2021-09-10] MEDS: AmLODIPine BESYLATE 10 MG TABLET PO SCH (08:13)
[2021-09-10] MEDS: GABAPENTIN 300 MG CAPSULE PO SCH ×4 (08:13→20:22)
[2021-09-10] MEDS: SERTRALINE HCL 100 MG TABLET PO SCH (08:14)
[2021-09-10 09:23] VITALS: BP 149/87
[2021-09-10 17:10] VITALS: BP 142/87
[2021-09-11] MEDS: LEVOTHYROXINE SODIUM 50 MCG TABLET PO SCH (06:45)
[2021-09-11] MEDS: LISINOPRIL 20 MG TABLET PO SCH (08:17)
[2021-09-11] MEDS: GABAPENTIN 300 MG CAPSULE PO SCH ×2 (08:17→12:51)
[2021-09-11] MEDS: SERTRALINE HCL 100 MG TABLET PO SCH (08:17)
[2021-09-11] MEDS: QUEtiapine FUMARATE 200 MG TABLET PO SCH (08:17)
[2021-09-11] MEDS: PROPRANOLOL HCL 20 MG TABLET PO SCH (08:17)
[2021-09-11] MEDS: AmLODIPine BESYLATE 10 MG TABLET PO SCH (08:17)
[2021-09-11 08:53] VITALS: BP 130/70
[2021-09-11] MEDS ORDERED: QUET200T PO (13:54)
[2021-09-11] MEDS ORDERED: SERT-162 PO (13:54)
== END 2021-09-11 15:40 | disposition home or self-care (01) | DRG 750 ==
LOC: EMS 15:13 → 3EI 09-02 00:01
PROVIDERS: ADMIT Psychiatry & Neurology Child & Adolescent Psychiatry; ATTEND Psychiatry & Neurology Child & Adolescent Psychiatry
DX: F25.1 Schizoaffective disorder, depressive type (principal); Z59.00 Homelessness unspecified; E03.9 Hypothyroidism, unspecified; F12.10 Cannabis abuse, uncomplicated; F10.10 Alcohol abuse, uncomplicated; E78.5 Hyperlipidemia, unspecified; I10 Essential (primary) hypertension; Y90.7 Blood alcohol level of 200-239 mg/100 ml; F17.210 Nicotine dependence, cigarettes, uncomplicated; Z20.822 Contact with and (suspected) exposure to COVID-19; Z91.51 Personal history of suicidal behavior; Z28.21 Immunization not carried out because of patient refusal
CPT/HCPCS: 80053; 80061; 84439; 84443; 85025; 87081; 99285; G0480

== ENCOUNTER 2021-09-30 14:39 | Inpatient (IN) | payer MEDICAID ==
[~2021-09-30] VITALS: Ht 182.9 cm; Wt 104.8 kg
[~2021-09-30 14:39] MED LIST changes: -SERT-158 PO; +SERT-162 PO
[2021-09-30 15:52] LABS: BASOPHILS % (AUTO) 0.9 % (0.0-2.0); EOSINOPHILS % (AUTO) 1.7 % (1.0-6.0); HEMATOCRIT 44.2 % (41-53); LYMPHOCYTES # (AUTO) 1.1 K/uL (1.0-4.8); LYMPHOCYTES % (AUTO) 21.8 % (22.0-44.0); MEAN CORPUSCULAR HEMOGLOBIN 32.6 pg (26.0-34.0); MEAN CORPUSCULAR HGB CONC 33.9 G/dL (31.0-37.0); MEAN CORPUSCULAR VOLUME 96 fL (80-100); MONOCYTES # (AUTO) 0.3 K/uL (0.1-1.0); MONOCYTES % (AUTO) 5.3 % (2.0-9.0); NEUTROPHILS # (AUTO) 3.6 K/uL (1.8-7.7); NEUTROPHILS % (AUTO) 70.3 % (40.0-70.0); PLATELET COUNT (AUTO) 189 K/uL (150-450); RED BLOOD CELL COUNT(AUTO) 4.58 MIL/uL (4.50-5.90); RED CELL DISTRIBUTION WIDTH 17.2 % (11.5-14.5)
[2021-09-30 16:10] LABS: SALICYLATE 1.4 mg/dL (2.8-20.0)
[2021-09-30 16:11] LABS: ANION GAP 16 mmol/L (8-16); CALCIUM, TOTAL 9.1 mg/dL (8.8-10.5); CARBON DIOXIDE 24 mmol/L (22-29); CHLORIDE 102 mmol/L (98-107); CREATININE 0.82 mg/dL (0.60-1.30); GLOMERULAR FILTR. RATE CALC > 60 mL/min (>60); GLUCOSE,RANDOM 99 mg/dL (70-110); POTASSIUM 4.7 mmol/L (3.5-5.1); SODIUM SERUM 142 mmol/L (136-145); UREA NITROGEN, BLOOD 7 mg/dL (7-18)
[2021-09-30 16:15] LABS: ACETAMINOPHEN < 2 mcg/mL (10-30); ALANINE AMINOTRANSFERASE 44 U/L (12-78); ALBUMIN 4.2 g/dL (3.4-5.0); ALKALINE PHOSPHATASE 79 U/L (46-116); ASPARTATE AMINOTRANSFERASE 52 U/L (15-37); BILIRUBIN,TOTAL 0.4 mg/dL (0.1-1.0); TOTAL PROTEIN, SERUM 8.1 g/dL (6.4-8.2)
[2021-09-30 18:30] LABS: AMPHET/METH SCREEN,URINE NEGATIVE (NEGATIVE); BARBITURATE SCREEN, URINE NEGATIVE (NEGATIVE); BENZODIAZEPINES SCREEN,URINE POSITIVE (NEGATIVE); CANNABINOID SCREEN,URINE NEGATIVE (NEGATIVE); COCAINE SCREEN,URINE NEGATIVE (NEGATIVE); METHADONE SCREEN, URINE NEGATIVE (NEGATIVE); OPIATE SCREEN,URINE NEGATIVE (NEGATIVE)
[2021-09-30 18:31] LABS: PHENCYCLIDINE SCREEN,URINE NEGATIVE (NEGATIVE)
[2021-09-30 20:15] LABS: COVID AG,FIA SOURCE NASAL SWAB
[2021-10-01] MEDS: LORazepam 2 MG TABLET PO PRN ×4 (00:20→20:05)
[2021-10-01] MEDS: HALOPERIDOL 5 MG TABLET PO PRN ×2 (01:08→14:19)
[2021-10-01] MEDS: ZOLPIDEM TARTRATE 10 MG TABLET PO PRN (01:08)
[2021-10-01] MEDS ORDERED: LOPERAMIDE HCL 2 MG CAPSULE PO PRN (08:45)
[2021-10-01] MEDS ORDERED: IBUPROFEN 400 MG TABLET PO PRN (08:45)
[2021-10-01] MEDS ORDERED: ACETAMINOPHEN 325 MG TABLET PO PRN (08:45)
[2021-10-01] MEDS ORDERED: ONDANSETRON HCL 4 MG TABLET PO PRN (08:45)
[2021-10-01] MEDS ORDERED: CloNIDine HCL 0.1 MG TABLET PO PRN (08:45)
[2021-10-01] MEDS ORDERED: ALBUTEROL SULFATE HFA 90 MCG/PUFF 8 GM INHALER IH PRN (08:45)
[2021-10-01] MEDS ORDERED: MAGNESIUM HYDROXIDE SUSPENSION 30 ML UDCUP PO PRN (08:45)
[2021-10-01] MEDS ORDERED: DOCUSATE SODIUM 100 MG CAPSULE PO PRN (08:45)
[2021-10-01] MEDS ORDERED: NICOTINE 14 MG/24 HOUR PATCH TD PRN (08:45)
[2021-10-01] MEDS ORDERED: GuaiFENesin/D-METHORPHAN [SUGAR-FREE] 200-20MG/10 ML SYRUP UDCUP PO PRN (08:45)
[2021-10-01] MEDS ORDERED: PETROLATUM,WHITE 28 GM JELLY TP PRN (08:45)
[2021-10-01] MEDS ORDERED: MAG HYDROX/AL HYDROX/SIMETH ES 30 ML SUSPENSION UDCUP PO PRN (08:45)
[2021-10-01] MEDS: AmLODIPine BESYLATE 10 MG TABLET PO SCH (10:30)
[2021-10-01] MEDS: LISINOPRIL 20 MG TABLET PO SCH (10:30)
[2021-10-01] MEDS: PROPRANOLOL HCL 20 MG TABLET PO SCH (10:30)
[2021-10-02] VITALS (7 sets, daily range): BP systolic 114–144; BP diastolic 65–97
[2021-10-02] MEDS: LEVOTHYROXINE SODIUM 50 MCG TABLET PO SCH (07:12)
[2021-10-02] MEDS: LORazepam 2 MG TABLET PO PRN ×3 (08:51→18:07)
[2021-10-02] MEDS: AmLODIPine BESYLATE 10 MG TABLET PO SCH (08:51)
[2021-10-02] MEDS: LISINOPRIL 20 MG TABLET PO SCH (08:51)
[2021-10-02] MEDS: PROPRANOLOL HCL 20 MG TABLET PO SCH (08:51)
[2021-10-02] MEDS ORDERED: LORazepam 2 MG TABLET PO PRN (10:45)
[2021-10-02] MEDS: SERTRALINE HCL 100 MG TABLET PO SCH (11:16)
[2021-10-02] MEDS: QUEtiapine FUMARATE 200 MG TABLET PO SCH ×2 (11:16→20:34)
[2021-10-02] MEDS: GABAPENTIN 300 MG CAPSULE PO SCH ×3 (13:07→20:34)
[2021-10-03] MEDS: LORazepam 2 MG TABLET PO PRN (00:04)
[2021-10-03 00:28] VITALS: BP 119/72
[2021-10-03] MEDS: LEVOTHYROXINE SODIUM 50 MCG TABLET PO SCH (06:52)
[2021-10-03] MEDS ORDERED: LORazepam 2 MG TABLET PO PRN ×2 (07:00)
[2021-10-03 07:38] LABS: BASOPHILS % (AUTO) 0.8 % (0.0-2.0); EOSINOPHILS % (AUTO) 4.4 % (1.0-6.0); HEMATOCRIT 41.4 % (41-53); HEMOGLOBIN 14.3 g/dL (13.5-17.5); LYMPHOCYTES # (AUTO) 1.3 K/uL (1.0-4.8); MEAN CORPUSCULAR HEMOGLOBIN 32.9 pg (26.0-34.0); MEAN CORPUSCULAR HGB CONC 34.5 G/dL (31.0-37.0); MEAN CORPUSCULAR VOLUME 95 fL (80-100); MONOCYTES # (AUTO) 0.4 K/uL (0.1-1.0); MONOCYTES % (AUTO) 9.9 % (2.0-9.0); NEUTROPHILS # (AUTO) 2.4 K/uL (1.8-7.7); NEUTROPHILS % (AUTO) 54.9 % (40.0-70.0); PLATELET COUNT (AUTO) 107 K/uL (150-450); RED BLOOD CELL COUNT(AUTO) 4.34 MIL/uL (4.50-5.90); RED CELL DISTRIBUTION WIDTH 16.3 % (11.5-14.5)
[2021-10-03 08:27] VITALS: BP 143/91
[2021-10-03] MEDS: QUEtiapine FUMARATE 200 MG TABLET PO SCH ×2 (08:43→20:31)
[2021-10-03] MEDS: GABAPENTIN 300 MG CAPSULE PO SCH ×4 (08:43→20:32)
[2021-10-03] MEDS: LORazepam 2 MG TABLET PO SCH ×4 (08:43→20:32)
[2021-10-03] MEDS: PROPRANOLOL HCL 20 MG TABLET PO SCH (08:43)
[2021-10-03] MEDS: LISINOPRIL 20 MG TABLET PO SCH (08:44)
[2021-10-03] MEDS: AmLODIPine BESYLATE 10 MG TABLET PO SCH (08:44)
[2021-10-03] MEDS: SERTRALINE HCL 100 MG TABLET PO SCH (08:44)
[2021-10-03] MEDS ORDERED: LORazepam 2 MG TABLET PO SCH (09:00)
[2021-10-03 11:31] VITALS: BP 136/92
[2021-10-03] MEDS: HALOPERIDOL 5 MG TABLET PO PRN (13:38)
[2021-10-03 16:25] VITALS: BP 112/79
[2021-10-03 16:36] VITALS: BP 108/79
[2021-10-04 01:19] VITALS: BP 120/81
[2021-10-04 01:20] VITALS: BP 120/81
[2021-10-04] MEDS: LEVOTHYROXINE SODIUM 50 MCG TABLET PO SCH (06:35)
[2021-10-04 07:28] LABS: BASOPHILS % (AUTO) 0.3 % (0.0-2.0); EOSINOPHILS % (AUTO) 4.5 % (1.0-6.0); HEMOGLOBIN 14.3 g/dL (13.5-17.5); LYMPHOCYTES # (AUTO) 1.2 K/uL (1.0-4.8); LYMPHOCYTES % (AUTO) 24.6 % (22.0-44.0); MEAN CORPUSCULAR HEMOGLOBIN 33.2 pg (26.0-34.0); MEAN CORPUSCULAR HGB CONC 34.8 G/dL (31.0-37.0); MEAN CORPUSCULAR VOLUME 95 fL (80-100); MONOCYTES # (AUTO) 0.4 K/uL (0.1-1.0); MONOCYTES % (AUTO) 8.4 % (2.0-9.0); NEUTROPHILS % (AUTO) 62.2 % (40.0-70.0); PLATELET COUNT (AUTO) 110 K/uL (150-450); RED CELL DISTRIBUTION WIDTH 16.8 % (11.5-14.5)
[2021-10-04 08:37] VITALS: BP 138/95
[2021-10-04 09:00] VITALS: BP 138/95
[2021-10-04] MEDS: GABAPENTIN 300 MG CAPSULE PO SCH ×4 (09:26→20:00)
[2021-10-04] MEDS: PROPRANOLOL HCL 20 MG TABLET PO SCH (09:26)
[2021-10-04] MEDS: LORazepam 2 MG TABLET PO SCH ×4 (09:26→20:00)
[2021-10-04] MEDS: QUEtiapine FUMARATE 200 MG TABLET PO SCH ×2 (09:26→20:00)
[2021-10-04] MEDS: LISINOPRIL 20 MG TABLET PO SCH (09:26)
[2021-10-04] MEDS: SERTRALINE HCL 100 MG TABLET PO SCH (09:26)
[2021-10-04] MEDS: AmLODIPine BESYLATE 10 MG TABLET PO SCH (09:26)
[2021-10-04 16:30] VITALS: BP 125/70
[2021-10-04 17:19] VITALS: BP 125/70
[2021-10-05 00:32] VITALS: BP 124/85
[2021-10-05] MEDS: ZOLPIDEM TARTRATE 10 MG TABLET PO PRN ×2 (00:33→20:37)
[2021-10-05 00:41] VITALS: BP 124/82
[2021-10-05] MEDS: LEVOTHYROXINE SODIUM 50 MCG TABLET PO SCH (06:28)
[2021-10-05] MEDS ORDERED: LORazepam 1 MG TABLET PO PRN (07:00)
[2021-10-05 08:23] VITALS: BP 142/86
[2021-10-05 08:30] VITALS: BP 142/80
[2021-10-05] MEDS ORDERED: LORazepam 1 MG TABLET PO SCH (09:00)
[2021-10-05] MEDS: SERTRALINE HCL 100 MG TABLET PO SCH (09:02)
[2021-10-05] MEDS: GABAPENTIN 300 MG CAPSULE PO SCH ×4 (09:02→20:37)
[2021-10-05] MEDS: QUEtiapine FUMARATE 200 MG TABLET PO SCH ×2 (09:02→20:37)
[2021-10-05] MEDS: LORazepam 1 MG TABLET PO SCH ×4 (09:03→20:38)
[2021-10-05] MEDS: AmLODIPine BESYLATE 10 MG TABLET PO SCH (09:03)
[2021-10-05] MEDS: PROPRANOLOL HCL 20 MG TABLET PO SCH (09:03)
[2021-10-05] MEDS: LISINOPRIL 20 MG TABLET PO SCH (09:03)
[2021-10-05] MEDS ORDERED: ARIPiprazole ER SUSPENSION 400 MG PRE-FILLED DUAL CHAMBER SYRINGE IM SCH (11:45)
[2021-10-05 16:00] VITALS: BP 130/80
[2021-10-05 16:28] VITALS: BP 130/80
[2021-10-06] VITALS (7 sets, daily range): BP systolic 122–161; BP diastolic 76–98
[2021-10-06] MEDS: LORazepam 1 MG TABLET PO PRN ×2 (00:28→06:47)
[2021-10-06] MEDS: LEVOTHYROXINE SODIUM 50 MCG TABLET PO SCH (06:40)
[2021-10-06] MEDS ORDERED: LORazepam 1 MG TABLET PO PRN ×2 (07:00)
[2021-10-06] MEDS: SERTRALINE HCL 100 MG TABLET PO SCH (08:00)
[2021-10-06] MEDS: GABAPENTIN 300 MG CAPSULE PO SCH ×4 (08:00→20:29)
[2021-10-06] MEDS: AmLODIPine BESYLATE 10 MG TABLET PO SCH (08:00)
[2021-10-06] MEDS: LISINOPRIL 20 MG TABLET PO SCH (08:01)
[2021-10-06] MEDS: PROPRANOLOL HCL 20 MG TABLET PO SCH (08:01)
[2021-10-06] MEDS: QUEtiapine FUMARATE 200 MG TABLET PO SCH ×2 (09:59→20:30)
[2021-10-07 00:30] VITALS: BP 132/83
[2021-10-07 00:37] VITALS: BP 132/83
[2021-10-07] MEDS: LEVOTHYROXINE SODIUM 50 MCG TABLET PO SCH (06:52)
[2021-10-07 08:10] VITALS: BP 123/83
[2021-10-07 08:17] LABS: CHOL/HDL RATIO 3.3 (4.2-7.3)
[2021-10-07] MEDS: PROPRANOLOL HCL 20 MG TABLET PO SCH (08:37)
[2021-10-07] MEDS: MULTIVITAMINS WITH MINERALS, THERAPEUTIC TABLET PO SCH (08:37)
[2021-10-07] MEDS: AmLODIPine BESYLATE 10 MG TABLET PO SCH (08:38)
[2021-10-07] MEDS: THIAMINE 100 MG TABLET PO SCH (08:38)
[2021-10-07] MEDS: SERTRALINE HCL 100 MG TABLET PO SCH (08:38)
[2021-10-07] MEDS: FOLIC ACID 1 MG TABLET PO SCH (08:38)
[2021-10-07] MEDS: GABAPENTIN 300 MG CAPSULE PO SCH ×4 (08:38→20:12)
[2021-10-07] MEDS: LISINOPRIL 20 MG TABLET PO SCH (08:38)
[2021-10-07] MEDS: QUEtiapine FUMARATE 200 MG TABLET PO SCH ×2 (08:38→20:12)
[2021-10-07 16:18] VITALS: BP 126/72
[2021-10-08] VITALS: BP 110/76
[2021-10-08] MEDS: ZOLPIDEM TARTRATE 10 MG TABLET PO PRN (00:08)
[2021-10-08] MEDS: LEVOTHYROXINE SODIUM 50 MCG TABLET PO SCH (06:30)
[2021-10-08] MEDS: FOLIC ACID 1 MG TABLET PO SCH (08:03)
[2021-10-08] MEDS: THIAMINE 100 MG TABLET PO SCH (08:03)
[2021-10-08] MEDS: MULTIVITAMINS WITH MINERALS, THERAPEUTIC TABLET PO SCH (08:03)
[2021-10-08] MEDS: QUEtiapine FUMARATE 200 MG TABLET PO SCH ×2 (08:04→20:07)
[2021-10-08] MEDS: GABAPENTIN 300 MG CAPSULE PO SCH ×4 (08:04→20:07)
[2021-10-08] MEDS: PROPRANOLOL HCL 20 MG TABLET PO SCH (08:04)
[2021-10-08] MEDS: AmLODIPine BESYLATE 10 MG TABLET PO SCH (08:04)
[2021-10-08] MEDS: LISINOPRIL 20 MG TABLET PO SCH (08:04)
[2021-10-08] MEDS: SERTRALINE HCL 100 MG TABLET PO SCH (08:04)
[2021-10-08 08:22] VITALS: BP 125/83
[2021-10-08 16:44] VITALS: BP 113/91
[2021-10-09 00:18] VITALS: BP 120/82
[2021-10-09] MEDS: ZOLPIDEM TARTRATE 10 MG TABLET PO PRN ×2 (00:19→20:35)
[2021-10-09] MEDS: LEVOTHYROXINE SODIUM 50 MCG TABLET PO SCH (06:50)
[2021-10-09] MEDS: QUEtiapine FUMARATE 200 MG TABLET PO SCH ×2 (08:02→20:35)
[2021-10-09] MEDS: AmLODIPine BESYLATE 10 MG TABLET PO SCH (08:02)
[2021-10-09] MEDS: THIAMINE 100 MG TABLET PO SCH (08:02)
[2021-10-09] MEDS: PROPRANOLOL HCL 20 MG TABLET PO SCH (08:02)
[2021-10-09] MEDS: LISINOPRIL 20 MG TABLET PO SCH (08:02)
[2021-10-09] MEDS: FOLIC ACID 1 MG TABLET PO SCH (08:03)
[2021-10-09] MEDS: GABAPENTIN 300 MG CAPSULE PO SCH ×4 (08:03→20:35)
[2021-10-09] MEDS: SERTRALINE HCL 100 MG TABLET PO SCH (08:03)
[2021-10-09 08:14] VITALS: BP 145/97
[2021-10-09] MEDS: MULTIVITAMINS WITH MINERALS, THERAPEUTIC TABLET PO SCH (09:53)
[2021-10-09 16:13] VITALS: BP 130/89
[2021-10-10 00:45] VITALS: BP 119/78
[2021-10-10] MEDS: LEVOTHYROXINE SODIUM 50 MCG TABLET PO SCH (06:27)
[2021-10-10] MEDS: AmLODIPine BESYLATE 10 MG TABLET PO SCH (07:45)
[2021-10-10] MEDS: GABAPENTIN 300 MG CAPSULE PO SCH ×2 (07:45→13:01)
[2021-10-10] MEDS: SERTRALINE HCL 100 MG TABLET PO SCH (07:45)
[2021-10-10] MEDS: FOLIC ACID 1 MG TABLET PO SCH (07:45)
[2021-10-10] MEDS: PROPRANOLOL HCL 20 MG TABLET PO SCH (07:45)
[2021-10-10] MEDS: THIAMINE 100 MG TABLET PO SCH (07:46)
[2021-10-10] MEDS: LISINOPRIL 20 MG TABLET PO SCH (07:46)
[2021-10-10] MEDS: MULTIVITAMINS WITH MINERALS, THERAPEUTIC TABLET PO SCH (07:46)
[2021-10-10] MEDS: QUEtiapine FUMARATE 200 MG TABLET PO SCH (07:46)
[2021-10-10 08:21] VITALS: BP 139/97
[2021-10-30] MEDS ORDERED: ARIPiprazole ER SUSPENSION 400 MG PRE-FILLED DUAL CHAMBER SYRINGE IM SCH (09:00)
== END 2021-10-10 15:14 | disposition home or self-care (01) | DRG 750 ==
LOC: EMS 14:39 → B2S 10-01 15:39 → UNDOADMIN 10-01 15:40 → B2S 10-01 15:40
PROVIDERS: ADMIT Psychiatry & Neurology Child & Adolescent Psychiatry; ATTEND Psychiatry & Neurology Child & Adolescent Psychiatry
DX: F25.0 Schizoaffective disorder, bipolar type (principal); E03.9 Hypothyroidism, unspecified; Z20.822 Contact with and (suspected) exposure to COVID-19; E78.5 Hyperlipidemia, unspecified; F10.10 Alcohol abuse, uncomplicated; F99 Mental disorder, not otherwise specified; I10 Essential (primary) hypertension; Z59.00 Homelessness unspecified; Z91.14 Patient's other noncompliance with medication regimen
CPT/HCPCS: 80053; 80061; 85025; 87081; 93005; 99291; G0480; G0481; J0401; Q0162

== ENCOUNTER 2022-03-09 16:12 | Inpatient (IN) | payer MEDICAID ==
[~2022-03-09] VITALS: Ht 182.9 cm; Wt 100.3 kg
[2022-03-09] MEDS ORDERED: HALOPERIDOL LACTATE 5 MG/ML VIAL IM ONE (17:00)
[2022-03-09] MEDS ORDERED: LORazepam 2 MG/ML VIAL IM ONE (17:00)
[2022-03-09] MEDS ORDERED: DiphenhydrAMINE HCL 50 MG/ML VIAL IM ONE (17:00)
[2022-03-09 18:24] LABS: BASOPHILS % (AUTO) 0.8 % (0.0-2.0); EOSINOPHILS % (AUTO) 2.8 % (1.0-6.0); HEMATOCRIT 45.3 % (41-53); HEMOGLOBIN 15.5 g/dL (13.5-17.5); LYMPHOCYTES # (AUTO) 2.9 K/uL (1.0-4.8); LYMPHOCYTES % (AUTO) 43.1 % (22.0-44.0); MEAN CORPUSCULAR HEMOGLOBIN 31.9 pg (26.0-34.0); MEAN CORPUSCULAR HGB CONC 34.1 G/dL (31.0-37.0); MEAN CORPUSCULAR VOLUME 94 fL (80-100); MONOCYTES # (AUTO) 0.5 K/uL (0.1-1.0); MONOCYTES % (AUTO) 7.3 % (2.0-9.0); NEUTROPHILS # (AUTO) 3.1 K/uL (1.8-7.7); PLATELET COUNT (AUTO) 216 K/uL (150-450); RED BLOOD CELL COUNT(AUTO) 4.84 MIL/uL (4.50-5.90); RED CELL DISTRIBUTION WIDTH 13.6 % (11.5-14.5)
[2022-03-09 18:37] LABS: ANION GAP 16 mmol/L (8-16); CALCIUM, TOTAL 8.7 mg/dL (8.8-10.5); CARBON DIOXIDE 21 mmol/L (22-29); CHLORIDE 100 mmol/L (98-107); GLOMERULAR FILTR. RATE CALC > 60 mL/min (>60); GLUCOSE,RANDOM 197 mg/dL (70-110); POTASSIUM 3.7 mmol/L (3.5-5.1); SODIUM SERUM 137 mmol/L (136-145); UREA NITROGEN, BLOOD 7 mg/dL (7-18)
[2022-03-09 18:43] LABS: ALANINE AMINOTRANSFERASE 24 U/L (12-78); ALBUMIN 3.5 g/dL (3.4-5.0); ALKALINE PHOSPHATASE 69 U/L (46-116); ASPARTATE AMINOTRANSFERASE 17 U/L (15-37); BILIRUBIN,TOTAL 0.2 mg/dL (0.1-1.0); TOTAL PROTEIN, SERUM 6.9 g/dL (6.4-8.2)
[2022-03-09] MEDS ORDERED: LORazepam 2 MG TABLET PO PRN (19:45)
[2022-03-09] MEDS ORDERED: ZOLPIDEM TARTRATE 10 MG TABLET PO PRN (19:45)
[2022-03-09] MEDS ORDERED: HALOPERIDOL 5 MG TABLET PO PRN (19:45)
[2022-03-09 20:32] LABS: COVID AG,FIA SOURCE NASOPHARYNGEAL
[2022-03-09 22:37] VITALS: BP 148/92
[2022-03-10 08:32] VITALS: BP 161/95
[2022-03-10] MEDS ORDERED: ACETAMINOPHEN 325 MG TABLET PO PRN (10:30)
[2022-03-10] MEDS ORDERED: GuaiFENesin/D-METHORPHAN [SUGAR-FREE] 200-20MG/10 ML SYRUP UDCUP PO PRN (10:30)
[2022-03-10] MEDS ORDERED: IBUPROFEN 400 MG TABLET PO PRN (10:30)
[2022-03-10] MEDS ORDERED: DOCUSATE SODIUM 100 MG CAPSULE PO PRN (10:30)
[2022-03-10] MEDS ORDERED: MAG HYDROX/AL HYDROX/SIMETH ES 30 ML SUSPENSION UDCUP PO PRN (10:30)
[2022-03-10] MEDS ORDERED: NICOTINE 14 MG/24 HOUR PATCH TD PRN (10:30)
[2022-03-10] MEDS ORDERED: MAGNESIUM HYDROXIDE SUSPENSION 30 ML UDCUP PO PRN (10:30)
[2022-03-10] MEDS ORDERED: ALBUTEROL SULFATE HFA 90 MCG/PUFF 8 GM INHALER IH PRN (10:30)
[2022-03-10] MEDS ORDERED: LOPERAMIDE HCL 2 MG CAPSULE PO PRN (10:30)
[2022-03-10] MEDS ORDERED: PETROLATUM,WHITE 28 GM JELLY TP PRN (10:30)
[2022-03-10] MEDS ORDERED: ONDANSETRON HCL 4 MG TABLET PO PRN (10:30)
[2022-03-10] MEDS ORDERED: CloNIDine HCL 0.1 MG TABLET PO PRN (10:30)
[2022-03-10] MEDS: SERTRALINE HCL 100 MG TABLET PO SCH (14:19)
[2022-03-10] MEDS: QUEtiapine FUMARATE 200 MG TABLET PO SCH ×2 (14:19→20:09)
[2022-03-10] MEDS: GABAPENTIN 300 MG CAPSULE PO SCH ×3 (14:19→20:09)
[2022-03-10 16:00] VITALS: BP 130/79
[2022-03-11] MEDS: LEVOTHYROXINE SODIUM 50 MCG TABLET PO SCH (06:26)
[2022-03-11] MEDS: AmLODIPine BESYLATE 10 MG TABLET PO SCH (08:22)
[2022-03-11] MEDS: LISINOPRIL 20 MG TABLET PO SCH (08:22)
[2022-03-11] MEDS: SERTRALINE HCL 100 MG TABLET PO SCH (08:22)
[2022-03-11] MEDS: GABAPENTIN 300 MG CAPSULE PO SCH ×4 (08:22→20:19)
[2022-03-11] MEDS: QUEtiapine FUMARATE 200 MG TABLET PO SCH ×2 (08:23→20:19)
[2022-03-11 09:09] VITALS: BP 157/114
[2022-03-11 16:43] VITALS: BP 155/97
[2022-03-12] MEDS: LEVOTHYROXINE SODIUM 50 MCG TABLET PO SCH (06:40)
[2022-03-12] MEDS: QUEtiapine FUMARATE 200 MG TABLET PO SCH ×2 (08:35→20:07)
[2022-03-12] MEDS: SERTRALINE HCL 100 MG TABLET PO SCH (08:35)
[2022-03-12] MEDS: AmLODIPine BESYLATE 10 MG TABLET PO SCH (08:35)
[2022-03-12] MEDS: LISINOPRIL 20 MG TABLET PO SCH (08:35)
[2022-03-12] MEDS: GABAPENTIN 300 MG CAPSULE PO SCH ×4 (08:35→20:07)
[2022-03-12 08:46] VITALS: BP 157/106
[2022-03-12 16:39] VITALS: BP 140/80
[2022-03-13 05:01] VITALS: BP 140/90
[2022-03-13] MEDS: LEVOTHYROXINE SODIUM 50 MCG TABLET PO SCH (06:22)
[2022-03-13] MEDS: QUEtiapine FUMARATE 200 MG TABLET PO SCH (09:19)
[2022-03-13] MEDS: GABAPENTIN 300 MG CAPSULE PO SCH ×3 (09:20→13:14)
[2022-03-13] MEDS: LISINOPRIL 20 MG TABLET PO SCH (09:20)
[2022-03-13] MEDS: SERTRALINE HCL 100 MG TABLET PO SCH (09:20)
[2022-03-13] MEDS: AmLODIPine BESYLATE 10 MG TABLET PO SCH (09:20)
[2022-03-13 10:00] VITALS: BP 150/94
[2022-03-13] MEDS ORDERED: GABA-1181 PO (11:34)
[2022-03-13] MEDS ORDERED: QUET200T30 PO (11:34)
[2022-03-13] MEDS ORDERED: SERT-440 PO (11:34)
[2022-03-13] MEDS ORDERED: AMLO-258 PO (12:06)
[2022-03-13] MEDS ORDERED: LEVO50 PO (12:06)
[2022-03-13] MEDS ORDERED: LISI-662 PO (12:06)
== END 2022-03-13 12:04 | disposition home or self-care (01) | DRG 750 ==
LOC: EMS 16:25 → 3EI 22:06
PROVIDERS: ADMIT Psychiatry & Neurology Psychiatry; ATTEND Psychiatry & Neurology Psychiatry
DX: F25.1 Schizoaffective disorder, depressive type (principal); E03.9 Hypothyroidism, unspecified; E11.65 Type 2 diabetes mellitus with hyperglycemia; Y90.7 Blood alcohol level of 200-239 mg/100 ml; F10.20 Alcohol dependence, uncomplicated; F17.200 Nicotine dependence, unspecified, uncomplicated; I10 Essential (primary) hypertension; Z20.822 Contact with and (suspected) exposure to COVID-19; Z71.6 Tobacco abuse counseling; Z91.51 Personal history of suicidal behavior
CPT/HCPCS: 80053; 85025; 99291; G0480; J1200; J1630; J2060

== ENCOUNTER 2022-06-05 18:56 | Inpatient (IN) | payer MEDICAID ==
[~2022-06-05] VITALS: Ht 182.9 cm; Wt 101.7 kg
[~2022-06-05 18:56] MED LIST changes: -PROP20TA18 PO; -QUET200T PO; +QUET200T30 PO; -SERT-162 PO; +SERT-440 PO
[2022-06-05 21:03] LABS: BASOPHILS % (AUTO) 0.9 % (0.0-2.0); EOSINOPHILS % (AUTO) 2.5 % (1.0-6.0); HEMATOCRIT 46.7 % (41-53); LYMPHOCYTES % (AUTO) 44.1 % (22.0-44.0); MEAN CORPUSCULAR HEMOGLOBIN 32.3 pg (26.0-34.0); MEAN CORPUSCULAR HGB CONC 34.3 G/dL (31.0-37.0); MEAN CORPUSCULAR VOLUME 94 fL (80-100); MONOCYTES # (AUTO) 0.5 K/uL (0.1-1.0); MONOCYTES % (AUTO) 6.8 % (2.0-9.0); NEUTROPHILS # (AUTO) 3.1 K/uL (1.8-7.7); NEUTROPHILS % (AUTO) 45.7 % (40.0-70.0); PLATELET COUNT (AUTO) 205 K/uL (150-450); RED BLOOD CELL COUNT(AUTO) 4.95 MIL/uL (4.50-5.90); RED CELL DISTRIBUTION WIDTH 13.9 % (11.5-14.5)
[2022-06-05 21:14] LABS: ANION GAP 16 mmol/L (8-16); CALCIUM, TOTAL 8.2 mg/dL (8.8-10.5); CARBON DIOXIDE 22 mmol/L (22-29); CHLORIDE 102 mmol/L (98-107); CREATININE 0.97 mg/dL (0.60-1.30); GLUCOSE,RANDOM 210 mg/dL (70-110); POTASSIUM 3.6 mmol/L (3.5-5.1); SODIUM SERUM 140 mmol/L (136-145); UREA NITROGEN, BLOOD 8 mg/dL (7-18)
[2022-06-05 21:16] LABS: GLOMERULAR FILTR. RATE CALC > 60 mL/min (>60)
[2022-06-05 21:17] LABS: AMPHET/METH SCREEN,URINE NEGATIVE (NEGATIVE); BARBITURATE SCREEN, URINE NEGATIVE (NEGATIVE); BENZODIAZEPINES SCREEN,URINE NEGATIVE (NEGATIVE); CANNABINOID SCREEN,URINE POSITIVE (NEGATIVE); COCAINE SCREEN,URINE NEGATIVE (NEGATIVE); METHADONE SCREEN, URINE NEGATIVE (NEGATIVE); OPIATE SCREEN,URINE NEGATIVE (NEGATIVE)
[2022-06-05 21:19] LABS: ALANINE AMINOTRANSFERASE 37 U/L (12-78); ALKALINE PHOSPHATASE 90 U/L (46-116); ASPARTATE AMINOTRANSFERASE 31 U/L (15-37); BILIRUBIN,TOTAL 0.3 mg/dL (0.1-1.0); TOTAL PROTEIN, SERUM 7.7 g/dL (6.4-8.2)
[2022-06-05 21:21] LABS: PHENCYCLIDINE SCREEN,URINE NEGATIVE (NEGATIVE)
[2022-06-05 22:01] LABS: COVID AG,FIA SOURCE NASAL SWAB
[2022-06-05] MEDS ORDERED: HALOPERIDOL 5 MG TABLET PO PRN (23:00)
[2022-06-05] MEDS ORDERED: ZOLPIDEM TARTRATE 10 MG TABLET PO PRN (23:00)
[2022-06-05 23:10] LABS: APPEARANCE,URINE TURBID (CLEAR); BILIRUBIN,URINE NEGATIVE (NEGATIVE); GLUCOSE, URINE (UA) TRACE mg/dL (NEGATIVE); KETONES,URINE NEGATIVE (NEGATIVE); LEUKOCYTE ESTERASE ,URINE NEGATIVE (NEGATIVE); NITRATE,URINE NEGATIVE (NEGATIVE); OCCULT BLOOD,URINE NEGATIVE (NEGATIVE); PH,URINE 5.5 (5.0-8.0); PROTEIN,URINE 30-70 mg/dL (NEGATIVE); SPECIFIC GRAVITIY, URINE 1.017 (1.003-1.030); UROBILINOGEN,URINE <=1.0 mg/dL (<=1.0)
[2022-06-06] VITALS (9 sets, daily range): BP systolic 132–166; BP diastolic 95–106
[2022-06-06] MEDS: LORazepam 2 MG TABLET PO PRN ×2 (02:13→07:25)
[2022-06-06] MEDS ORDERED: LOPERAMIDE HCL 2 MG CAPSULE PO PRN (06:45)
[2022-06-06] MEDS ORDERED: MAG HYDROX/AL HYDROX/SIMETH ES 30 ML SUSPENSION UDCUP PO PRN (06:45)
[2022-06-06] MEDS ORDERED: PETROLATUM,WHITE 28 GM JELLY TP PRN (06:45)
[2022-06-06] MEDS ORDERED: CloNIDine HCL 0.1 MG TABLET PO PRN (06:45)
[2022-06-06] MEDS ORDERED: ONDANSETRON HCL 4 MG TABLET PO PRN (06:45)
[2022-06-06] MEDS ORDERED: DOCUSATE SODIUM 100 MG CAPSULE PO PRN (06:45)
[2022-06-06] MEDS ORDERED: ACETAMINOPHEN 325 MG TABLET PO PRN (06:45)
[2022-06-06] MEDS ORDERED: IBUPROFEN 400 MG TABLET PO PRN (06:45)
[2022-06-06] MEDS ORDERED: MAGNESIUM HYDROXIDE SUSPENSION 30 ML UDCUP PO PRN (06:45)
[2022-06-06] MEDS ORDERED: GuaiFENesin/D-METHORPHAN [SUGAR-FREE] 200-20MG/10 ML SYRUP UDCUP PO PRN (06:45)
[2022-06-06] MEDS ORDERED: ALBUTEROL SULFATE HFA 90 MCG/PUFF 8 GM INHALER IH PRN (06:45)
[2022-06-06] MEDS: LEVOTHYROXINE SODIUM 50 MCG TABLET PO SCH (07:19)
[2022-06-06] MEDS: AmLODIPine BESYLATE 10 MG TABLET PO SCH (08:42)
[2022-06-06] MEDS ORDERED: GABAPENTIN 300 MG CAPSULE PO SCH (09:00)
[2022-06-06] MEDS: LISINOPRIL 20 MG TABLET PO SCH (10:30)
[2022-06-06] MEDS ORDERED: ChlordiazePOXIDE HCL 25 MG CAPSULE PO PRN (10:30)
[2022-06-06] MEDS: SERTRALINE HCL 100 MG TABLET PO SCH (10:54)
[2022-06-06] MEDS: GABAPENTIN 300 MG CAPSULE PO SCH ×3 (13:32→20:49)
[2022-06-06] MEDS: QUEtiapine FUMARATE 200 MG TABLET PO SCH (20:49)
[2022-06-07] VITALS (7 sets, daily range): BP systolic 140–165; BP diastolic 80–118
[2022-06-07] MEDS: LEVOTHYROXINE SODIUM 50 MCG TABLET PO SCH (06:21)
[2022-06-07] MEDS ORDERED: ChlordiazePOXIDE HCL 25 MG CAPSULE PO PRN (07:00)
[2022-06-07] MEDS: SERTRALINE HCL 100 MG TABLET PO SCH (08:15)
[2022-06-07] MEDS: ChlordiazePOXIDE HCL 25 MG CAPSULE PO SCH ×4 (08:15→20:26)
[2022-06-07] MEDS: GABAPENTIN 300 MG CAPSULE PO SCH ×4 (08:15→20:26)
[2022-06-07] MEDS: LISINOPRIL 20 MG TABLET PO SCH (08:15)
[2022-06-07] MEDS: QUEtiapine FUMARATE 200 MG TABLET PO SCH ×2 (08:15→20:26)
[2022-06-07] MEDS: AmLODIPine BESYLATE 10 MG TABLET PO SCH (08:15)
[2022-06-07] MEDS: NICOTINE 14 MG/24 HOUR PATCH TD PRN (18:18)
[2022-06-08 05:05] VITALS: BP 142/83
[2022-06-08] MEDS: LEVOTHYROXINE SODIUM 50 MCG TABLET PO SCH (06:27)
[2022-06-08 08:00] VITALS: BP 115/76
[2022-06-08] MEDS: SERTRALINE HCL 100 MG TABLET PO SCH (09:26)
[2022-06-08] MEDS: QUEtiapine FUMARATE 200 MG TABLET PO SCH ×2 (09:26→20:06)
[2022-06-08] MEDS: GABAPENTIN 300 MG CAPSULE PO SCH ×4 (09:26→20:06)
[2022-06-08] MEDS: LISINOPRIL 20 MG TABLET PO SCH (09:26)
[2022-06-08] MEDS: AmLODIPine BESYLATE 10 MG TABLET PO SCH (09:26)
[2022-06-08] MEDS: ChlordiazePOXIDE HCL 25 MG CAPSULE PO SCH ×4 (09:27→20:06)
[2022-06-08] MEDS: NICOTINE 14 MG/24 HOUR PATCH TD PRN (09:45)
[2022-06-08 16:00] VITALS: BP 145/101
[2022-06-08 16:10] VITALS: BP 145/91
[2022-06-08 21:37] VITALS: BP 139/78
[2022-06-09] MEDS: LEVOTHYROXINE SODIUM 50 MCG TABLET PO SCH (06:55)
[2022-06-09] MEDS ORDERED: ChlordiazePOXIDE HCL 10 MG CAPSULE PO PRN (07:00)
[2022-06-09 08:30] VITALS: BP 149/86
[2022-06-09] MEDS: LISINOPRIL 20 MG TABLET PO SCH (08:53)
[2022-06-09] MEDS: GABAPENTIN 300 MG CAPSULE PO SCH ×4 (08:53→20:16)
[2022-06-09] MEDS: SERTRALINE HCL 100 MG TABLET PO SCH (08:53)
[2022-06-09] MEDS: QUEtiapine FUMARATE 200 MG TABLET PO SCH ×2 (08:53→20:16)
[2022-06-09] MEDS: AmLODIPine BESYLATE 10 MG TABLET PO SCH (08:53)
[2022-06-09] MEDS ORDERED: ChlordiazePOXIDE HCL 10 MG CAPSULE PO SCH (09:00)
[2022-06-09] MEDS: NICOTINE 14 MG/24 HOUR PATCH TD PRN (09:15)
[2022-06-10] MEDS: LEVOTHYROXINE SODIUM 50 MCG TABLET PO SCH (06:50)
[2022-06-10] MEDS ORDERED: ChlordiazePOXIDE HCL 10 MG CAPSULE PO PRN (07:00)
[2022-06-10] MEDS: LISINOPRIL 20 MG TABLET PO SCH (08:02)
[2022-06-10] MEDS: QUEtiapine FUMARATE 200 MG TABLET PO SCH (08:02)
[2022-06-10] MEDS: GABAPENTIN 300 MG CAPSULE PO SCH (08:02)
[2022-06-10] MEDS: AmLODIPine BESYLATE 10 MG TABLET PO SCH (08:02)
[2022-06-10] MEDS: SERTRALINE HCL 100 MG TABLET PO SCH (08:02)
[2022-06-10] MEDS: NICOTINE 14 MG/24 HOUR PATCH TD PRN (08:07)
[2022-06-10] MEDS ORDERED: QUET200T30 PO (10:49)
[2022-06-10] MEDS ORDERED: GABA-1181 PO (10:49)
[2022-06-10] MEDS ORDERED: SERT-440 PO (10:49)
== END 2022-06-10 11:00 | disposition home or self-care (01) | DRG 750 ==
LOC: EMS 18:56 → 3EI 06-06 04:48
PROVIDERS: ADMIT Psychiatry & Neurology Child & Adolescent Psychiatry; ATTEND Psychiatry & Neurology Child & Adolescent Psychiatry
DX: F25.1 Schizoaffective disorder, depressive type (principal); E11.9 Type 2 diabetes mellitus without complications; R45.851 Suicidal ideations; E03.9 Hypothyroidism, unspecified; E78.5 Hyperlipidemia, unspecified; Z20.822 Contact with and (suspected) exposure to COVID-19; F10.229 Alcohol dependence with intoxication, unspecified; I10 Essential (primary) hypertension; Y90.8 Blood alcohol level of 240 mg/100 ml or more; F17.210 Nicotine dependence, cigarettes, uncomplicated; F41.9 Anxiety disorder, unspecified; Z79.899 Other long term (current) drug therapy
CPT/HCPCS: 80053; 81003; 85025; 99285; G0480

== ENCOUNTER 2022-06-24 22:39 | Inpatient (IN) | payer MEDICAID ==
[~2022-06-24] VITALS: Ht 182.9 cm; Wt 103.9 kg
[~2022-06-24 22:39] MED LIST changes: -AMLO-258 PO; -LEVO50 PO; -LISI-662 PO
[2022-06-24 23:21] LABS: COVID AG,FIA SOURCE NASOPHARYNGEAL
[2022-06-24 23:23] LABS: BASOPHILS % (AUTO) 1.2 % (0.0-2.0); EOSINOPHILS % (AUTO) 3.1 % (1.0-6.0); HEMATOCRIT 46.9 % (41-53); LYMPHOCYTES # (AUTO) 2.9 K/uL (1.0-4.8); LYMPHOCYTES % (AUTO) 49.1 % (22.0-44.0); MEAN CORPUSCULAR HEMOGLOBIN 32.3 pg (26.0-34.0); MEAN CORPUSCULAR HGB CONC 34.2 G/dL (31.0-37.0); MEAN CORPUSCULAR VOLUME 95 fL (80-100); MONOCYTES # (AUTO) 0.6 K/uL (0.1-1.0); MONOCYTES % (AUTO) 9.8 % (2.0-9.0); NEUTROPHILS # (AUTO) 2.2 K/uL (1.8-7.7); NEUTROPHILS % (AUTO) 36.8 % (40.0-70.0); PLATELET COUNT (AUTO) 265 K/uL (150-450); RED BLOOD CELL COUNT(AUTO) 4.96 MIL/uL (4.50-5.90); RED CELL DISTRIBUTION WIDTH 14.2 % (11.5-14.5)
[2022-06-24 23:34] LABS: ANION GAP 10 mmol/L (8-16); CALCIUM, TOTAL 8.9 mg/dL (8.8-10.5); CARBON DIOXIDE 24 mmol/L (22-29); CHLORIDE 99 mmol/L (98-107); CREATININE 0.94 mg/dL (0.60-1.30); GLOMERULAR FILTR. RATE CALC > 60 mL/min (>60); GLUCOSE,RANDOM 278 mg/dL (70-110); POTASSIUM 3.6 mmol/L (3.5-5.1); SODIUM SERUM 133 mmol/L (136-145); UREA NITROGEN, BLOOD 7 mg/dL (7-18)
[2022-06-24 23:39] LABS: ALANINE AMINOTRANSFERASE 38 U/L (12-78); ALBUMIN 3.8 g/dL (3.4-5.0); ALKALINE PHOSPHATASE 93 U/L (46-116); ASPARTATE AMINOTRANSFERASE 34 U/L (15-37); BILIRUBIN,TOTAL 0.2 mg/dL (0.1-1.0); TOTAL PROTEIN, SERUM 7.5 g/dL (6.4-8.2)
[2022-06-25] MEDS ORDERED: PERTUSS(ACELL),DIPH,TET VAC/PF 0.5 ML SYRINGE IM. ONE
[2022-06-25] MEDS ORDERED: ZOLPIDEM TARTRATE 10 MG TABLET PO PRN (05:45)
[2022-06-25] MEDS: QUEtiapine FUMARATE 100 MG TABLET PO PRN ×3 (05:56→17:56)
[2022-06-25] MEDS: LORazepam 2 MG TABLET PO PRN ×3 (05:56→17:56)
[2022-06-25] MEDS: AmLODIPine BESYLATE 10 MG TABLET PO SCH (12:37)
[2022-06-25 13:02] LABS: APPEARANCE,URINE CLEAR (CLEAR); BILIRUBIN,URINE NEGATIVE (NEGATIVE); GLUCOSE, URINE (UA) >=1000 mg/dL (NEGATIVE); KETONES,URINE NEGATIVE (NEGATIVE); LEUKOCYTE ESTERASE ,URINE NEGATIVE (NEGATIVE); NITRATE,URINE NEGATIVE (NEGATIVE); OCCULT BLOOD,URINE NEGATIVE (NEGATIVE); PH,URINE 5.5 (5.0-8.0); PROTEIN,URINE NEGATIVE (NEGATIVE); SPECIFIC GRAVITIY, URINE 1.014 (1.003-1.030); UROBILINOGEN,URINE <=1.0 mg/dL (<=1.0)
[2022-06-25 13:12] LABS: BACTERIA,URINE None Seen /HPF (None Seen); RBC,URINE 0-2 /HPF (0-2); SQUAMOUS EPITHELIAL CELL,UR Few /LPF (None Seen); WBC,URINE 0-2 /HPF (0-5); YEAST,URINE None Seen /HPF (None Seen)
[2022-06-25 13:17] LABS: AMPHET/METH SCREEN,URINE NEGATIVE (NEGATIVE); BARBITURATE SCREEN, URINE NEGATIVE (NEGATIVE); BENZODIAZEPINES SCREEN,URINE POSITIVE (NEGATIVE); CANNABINOID SCREEN,URINE POSITIVE (NEGATIVE); COCAINE SCREEN,URINE NEGATIVE (NEGATIVE); METHADONE SCREEN, URINE NEGATIVE (NEGATIVE); OPIATE SCREEN,URINE NEGATIVE (NEGATIVE); PHENCYCLIDINE SCREEN,URINE NEGATIVE (NEGATIVE)
[2022-06-25 19:07] VITALS: BP 133/92
[2022-06-25] MEDS ORDERED: HydrOXYzine PAMOATE 50 MG CAPSULE PO PRN (20:00)
[2022-06-25] MEDS ORDERED: ChlordiazePOXIDE HCL 25 MG CAPSULE PO PRN (20:00)
[2022-06-25] MEDS ORDERED: PNEUMOCOCCAL VACCINE POLYVALENT 0.5 ML VIAL [PPSV23] IM. ONE (20:30)
[2022-06-25 20:53] VITALS: BP 128/91
[2022-06-25 21:29] VITALS: BP 136/88
[2022-06-25 22:00] VITALS: BP 138/85
[2022-06-25 23:00] VITALS: BP 136/88
[2022-06-26] MEDS ORDERED: PETROLATUM,WHITE 28 GM JELLY TP PRN (06:00)
[2022-06-26] MEDS ORDERED: NICOTINE 14 MG/24 HOUR PATCH TD PRN (06:00)
[2022-06-26] MEDS ORDERED: GuaiFENesin/D-METHORPHAN [SUGAR-FREE] 200-20MG/10 ML SYRUP UDCUP PO PRN (06:00)
[2022-06-26] MEDS ORDERED: MAG HYDROX/AL HYDROX/SIMETH ES 30 ML SUSPENSION UDCUP PO PRN (06:00)
[2022-06-26] MEDS ORDERED: MAGNESIUM HYDROXIDE SUSPENSION 30 ML UDCUP PO PRN (06:00)
[2022-06-26] MEDS ORDERED: LOPERAMIDE HCL 2 MG CAPSULE PO PRN (06:00)
[2022-06-26] MEDS ORDERED: CloNIDine HCL 0.1 MG TABLET PO PRN (06:00)
[2022-06-26] MEDS ORDERED: ACETAMINOPHEN 325 MG TABLET PO PRN (06:00)
[2022-06-26] MEDS ORDERED: ONDANSETRON HCL 4 MG TABLET PO PRN (06:00)
[2022-06-26] MEDS ORDERED: ALBUTEROL SULFATE HFA 90 MCG/PUFF 8 GM INHALER IH PRN (06:00)
[2022-06-26] MEDS ORDERED: DOCUSATE SODIUM 100 MG CAPSULE PO PRN (06:00)
[2022-06-26] MEDS ORDERED: IBUPROFEN 400 MG TABLET PO PRN (06:00)
[2022-06-26 06:07] LABS: GLUCOMETER DEV NAME(LOC) BV2X.2; GLUCOSE,POINT OF CARE 233 MG/DL (70-110)
[2022-06-26] MEDS: LEVOTHYROXINE SODIUM 50 MCG TABLET PO SCH (06:44)
[2022-06-26] MEDS ORDERED: ChlordiazePOXIDE HCL 25 MG CAPSULE PO PRN (07:00)
[2022-06-26] MEDS: ChlordiazePOXIDE HCL 25 MG CAPSULE PO SCH ×4 (08:56→20:17)
[2022-06-26] MEDS: THIAMINE 100 MG TABLET PO SCH (08:56)
[2022-06-26] MEDS: AmLODIPine BESYLATE 10 MG TABLET PO SCH (08:56)
[2022-06-26] MEDS: MULTIVITAMINS WITH MINERALS, THERAPEUTIC TABLET PO SCH (08:57)
[2022-06-26] MEDS: CYANOCOBALAMIN 100 MCG TABLET PO SCH (08:57)
[2022-06-26] MEDS: LISINOPRIL 20 MG TABLET PO SCH (08:57)
[2022-06-26] MEDS: FOLIC ACID 1 MG TABLET PO SCH (08:57)
[2022-06-26] MEDS ORDERED: AmLODIPine BESYLATE 10 MG TABLET PO SCH (09:00)
[2022-06-26 09:07] VITALS: BP 142/85
[2022-06-26] MEDS: BACITRACIN 28 GM OINTMENT TP SCH ×2 (09:48→17:00)
[2022-06-26 12:50] VITALS: BP 115/64
[2022-06-26] MEDS: QUEtiapine FUMARATE 100 MG TABLET PO PRN (13:12)
[2022-06-26 20:58] VITALS: BP 124/79
[2022-06-26] MEDS: QUEtiapine FUMARATE 300 MG TABLET PO SCH (21:25)
[2022-06-26] MEDS: GABAPENTIN 300 MG CAPSULE PO SCH (21:25)
[2022-06-27] MEDS: LEVOTHYROXINE SODIUM 50 MCG TABLET PO SCH (06:39)
[2022-06-27 08:25] VITALS: BP 121/86
[2022-06-27] MEDS: ChlordiazePOXIDE HCL 25 MG CAPSULE PO SCH ×4 (09:17→20:28)
[2022-06-27] MEDS: GABAPENTIN 300 MG CAPSULE PO SCH ×3 (09:18→16:35)
[2022-06-27] MEDS: MULTIVITAMINS WITH MINERALS, THERAPEUTIC TABLET PO SCH (09:18)
[2022-06-27] MEDS: THIAMINE 100 MG TABLET PO SCH (09:18)
[2022-06-27] MEDS: LISINOPRIL 20 MG TABLET PO SCH (09:18)
[2022-06-27] MEDS: CYANOCOBALAMIN 100 MCG TABLET PO SCH (09:18)
[2022-06-27] MEDS: AmLODIPine BESYLATE 10 MG TABLET PO SCH (09:18)
[2022-06-27] MEDS: FOLIC ACID 1 MG TABLET PO SCH (09:18)
[2022-06-27] MEDS: BACITRACIN 28 GM OINTMENT TP SCH ×2 (09:19→16:39)
[2022-06-27] MEDS: QUEtiapine FUMARATE 100 MG TABLET PO PRN (18:09)
[2022-06-27] MEDS: QUEtiapine FUMARATE 300 MG TABLET PO SCH (20:28)
[2022-06-27 20:38] VITALS: BP 145/86
[2022-06-28] MEDS: LEVOTHYROXINE SODIUM 50 MCG TABLET PO SCH (06:37)
[2022-06-28] MEDS ORDERED: ChlordiazePOXIDE HCL 10 MG CAPSULE PO PRN (07:00)
[2022-06-28 08:25] VITALS: BP 119/79
[2022-06-28] MEDS: CYANOCOBALAMIN 100 MCG TABLET PO SCH (08:41)
[2022-06-28] MEDS: AmLODIPine BESYLATE 10 MG TABLET PO SCH (08:42)
[2022-06-28] MEDS: ChlordiazePOXIDE HCL 10 MG CAPSULE PO SCH ×2 (08:42→12:49)
[2022-06-28] MEDS: GABAPENTIN 300 MG CAPSULE PO SCH ×2 (08:42→12:49)
[2022-06-28] MEDS: LISINOPRIL 20 MG TABLET PO SCH (08:42)
[2022-06-28] MEDS: MULTIVITAMINS WITH MINERALS, THERAPEUTIC TABLET PO SCH (08:42)
[2022-06-28] MEDS: FOLIC ACID 1 MG TABLET PO SCH (08:44)
[2022-06-28] MEDS: THIAMINE 100 MG TABLET PO SCH (08:44)
[2022-06-28] MEDS: BACITRACIN 28 GM OINTMENT TP SCH (08:45)
[2022-06-28] MEDS ORDERED: QUET300T19 PO (12:52)
[2022-06-28] MEDS ORDERED: GABA-1181 PO (12:52)
[2022-06-29] MEDS ORDERED: ChlordiazePOXIDE HCL 10 MG CAPSULE PO PRN (07:00)
== END 2022-06-28 15:45 | disposition home or self-care (01) | DRG 750 ==
LOC: EMS 22:40 → B2S 06-25 13:53
PROVIDERS: ADMIT Psychiatry & Neurology Child & Adolescent Psychiatry; ATTEND Psychiatry & Neurology Child & Adolescent Psychiatry
DX: F20.9 Schizophrenia, unspecified (principal); E87.1 Hypo-osmolality and hyponatremia; R45.851 Suicidal ideations; E78.5 Hyperlipidemia, unspecified; Z20.822 Contact with and (suspected) exposure to COVID-19; E11.9 Type 2 diabetes mellitus without complications; E03.9 Hypothyroidism, unspecified; F10.10 Alcohol abuse, uncomplicated; F17.200 Nicotine dependence, unspecified, uncomplicated; Z71.6 Tobacco abuse counseling; I10 Essential (primary) hypertension; Y90.8 Blood alcohol level of 240 mg/100 ml or more; Z59.00 Homelessness unspecified
CPT/HCPCS: 80053; 81001; 82962; 85025; 87081; 90715; 99285; G0480

== ENCOUNTER 2022-07-07 17:28 | Inpatient (IN) | payer MEDICAID ==
[~2022-07-07] VITALS: Ht 182.9 cm; Wt 100.0 kg
[~2022-07-07 17:28] MED LIST changes: -QUET200T30 PO; +QUET300T19 PO; -SERT-440 PO
[2022-07-07 18:38] LABS: EOSINOPHILS % (AUTO) 2.8 % (1.0-6.0); HEMATOCRIT 48.3 % (41-53); HEMOGLOBIN 16.4 g/dL (13.5-17.5); LYMPHOCYTES # (AUTO) 3.6 K/uL (1.0-4.8); MEAN CORPUSCULAR HEMOGLOBIN 31.9 pg (26.0-34.0); MEAN CORPUSCULAR VOLUME 94 fL (80-100); MONOCYTES # (AUTO) 0.9 K/uL (0.1-1.0); MONOCYTES % (AUTO) 9.2 % (2.0-9.0); NEUTROPHILS # (AUTO) 4.9 K/uL (1.8-7.7); PLATELET COUNT (AUTO) 271 K/uL (150-450); RED BLOOD CELL COUNT(AUTO) 5.15 MIL/uL (4.50-5.90)
[2022-07-07 18:48] LABS: ANION GAP 7 mmol/L (8-16); CALCIUM, TOTAL 9.3 mg/dL (8.8-10.5); CARBON DIOXIDE 29 mmol/L (22-29); CHLORIDE 97 mmol/L (98-107); CREATININE 1.03 mg/dL (0.60-1.30); GLOMERULAR FILTR. RATE CALC > 60 mL/min (>60); GLUCOSE,RANDOM 269 mg/dL (70-110); POTASSIUM 4.3 mmol/L (3.5-5.1); SODIUM SERUM 133 mmol/L (136-145); UREA NITROGEN, BLOOD 9 mg/dL (7-18)
[2022-07-07 18:54] LABS: ALANINE AMINOTRANSFERASE 33 U/L (12-78); ALBUMIN 3.7 g/dL (3.4-5.0); ALKALINE PHOSPHATASE 93 U/L (46-116); ASPARTATE AMINOTRANSFERASE 26 U/L (15-37); BILIRUBIN,TOTAL 0.2 mg/dL (0.1-1.0); TOTAL PROTEIN, SERUM 7.8 g/dL (6.4-8.2)
[2022-07-07] MEDS ORDERED: PERMETHRIN 5% 60 GM CREAM TP ONE (20:30)
[2022-07-07] MEDS ORDERED: HALOPERIDOL 5 MG TABLET PO PRN (22:15)
[2022-07-07] MEDS ORDERED: ZOLPIDEM TARTRATE 10 MG TABLET PO PRN (22:15)
[2022-07-08] VITALS (7 sets, daily range): BP systolic 132–174; BP diastolic 70–117
[2022-07-08 02:14] LABS: APPEARANCE,URINE CLEAR (CLEAR); BILIRUBIN,URINE NEGATIVE (NEGATIVE); GLUCOSE, URINE (UA) 70-100 mg/dL (NEGATIVE); KETONES,URINE NEGATIVE (NEGATIVE); LEUKOCYTE ESTERASE ,URINE NEGATIVE (NEGATIVE); NITRATE,URINE NEGATIVE (NEGATIVE); OCCULT BLOOD,URINE NEGATIVE (NEGATIVE); PH,URINE 5.5 (5.0-8.0); PROTEIN,URINE NEGATIVE (NEGATIVE); SPECIFIC GRAVITIY, URINE 1.012 (1.003-1.030); UROBILINOGEN,URINE <=1.0 mg/dL (<=1.0)
[2022-07-08 02:17] LABS: AMPHET/METH SCREEN,URINE NEGATIVE (NEGATIVE); BARBITURATE SCREEN, URINE NEGATIVE (NEGATIVE); BENZODIAZEPINES SCREEN,URINE POSITIVE (NEGATIVE); CANNABINOID SCREEN,URINE POSITIVE (NEGATIVE); COCAINE SCREEN,URINE NEGATIVE (NEGATIVE); METHADONE SCREEN, URINE NEGATIVE (NEGATIVE); OPIATE SCREEN,URINE NEGATIVE (NEGATIVE); PHENCYCLIDINE SCREEN,URINE NEGATIVE (NEGATIVE)
[2022-07-08 02:25] LABS: BACTERIA,URINE None Seen /HPF (None Seen); RBC,URINE None Seen /HPF (0-2); WBC,URINE None Seen /HPF (0-5)
[2022-07-08 02:28] LABS: COVID AG,FIA SOURCE NASAL SWAB
[2022-07-08] MEDS ORDERED: PERMETHRIN 5% 60 GM CREAM TP ONE (02:30)
[2022-07-08] MEDS: LORazepam 2 MG TABLET PO PRN ×2 (05:50→09:55)
[2022-07-08] MEDS ORDERED: MAGNESIUM HYDROXIDE SUSPENSION 30 ML UDCUP PO PRN (08:15)
[2022-07-08] MEDS ORDERED: IBUPROFEN 400 MG TABLET PO PRN (08:15)
[2022-07-08] MEDS ORDERED: ALBUTEROL SULFATE HFA 90 MCG/PUFF 8 GM INHALER IH PRN (08:15)
[2022-07-08] MEDS ORDERED: ONDANSETRON HCL 4 MG TABLET PO PRN (08:15)
[2022-07-08] MEDS ORDERED: PETROLATUM,WHITE 28 GM JELLY TP PRN (08:15)
[2022-07-08] MEDS ORDERED: GuaiFENesin/D-METHORPHAN [SUGAR-FREE] 200-20MG/10 ML SYRUP UDCUP PO PRN (08:15)
[2022-07-08] MEDS ORDERED: LOPERAMIDE HCL 2 MG CAPSULE PO PRN (08:15)
[2022-07-08] MEDS ORDERED: ACETAMINOPHEN 325 MG TABLET PO PRN (08:15)
[2022-07-08] MEDS ORDERED: DOCUSATE SODIUM 100 MG CAPSULE PO PRN (08:15)
[2022-07-08] MEDS ORDERED: NICOTINE 14 MG/24 HOUR PATCH TD PRN (08:15)
[2022-07-08] MEDS ORDERED: MAG HYDROX/AL HYDROX/SIMETH ES 30 ML SUSPENSION UDCUP PO PRN (08:15)
[2022-07-08] MEDS: BusPIRone HCL 10 MG TABLET PO SCH ×3 (09:08→16:21)
[2022-07-08] MEDS: GABAPENTIN 300 MG CAPSULE PO SCH ×3 (09:08→16:21)
[2022-07-08] MEDS ORDERED: LORazepam 2 MG TABLET PO PRN (12:30)
[2022-07-08] MEDS: CloNIDine HCL 0.1 MG TABLET PO PRN (16:05)
[2022-07-08] MEDS: TraZODone HCL 50 MG TABLET PO SCH (20:05)
[2022-07-08] MEDS: QUEtiapine FUMARATE 300 MG TABLET PO SCH (20:05)
[2022-07-09 06:40] VITALS: BP 159/98
[2022-07-09] MEDS ORDERED: LORazepam 2 MG TABLET PO PRN (07:00)
[2022-07-09] MEDS: BusPIRone HCL 10 MG TABLET PO SCH ×3 (08:22→16:40)
[2022-07-09] MEDS: GABAPENTIN 300 MG CAPSULE PO SCH ×3 (08:22→16:40)
[2022-07-09] MEDS: LORazepam 2 MG TABLET PO SCH ×4 (08:22→20:04)
[2022-07-09] MEDS: CloNIDine HCL 0.1 MG TABLET PO PRN (09:18)
[2022-07-09 09:42] VITALS: BP 166/107
[2022-07-09 09:57] VITALS: BP 166/107
[2022-07-09 10:36] VITALS: BP 138/103
[2022-07-09] MEDS: QUEtiapine FUMARATE 300 MG TABLET PO SCH (20:04)
[2022-07-09] MEDS: TraZODone HCL 50 MG TABLET PO SCH (20:04)
[2022-07-09 20:12] VITALS: BP 142/92
[2022-07-10 01:51] VITALS: BP 151/97
[2022-07-10 07:09] LABS: HEMOGLOBIN A1C 9.7 % (3.8-5.6)
[2022-07-10 07:16] LABS: THYROID STIMULATING HORMONE 9.49 uIU/mL (0.36-3.74)
[2022-07-10] MEDS: BusPIRone HCL 10 MG TABLET PO SCH ×3 (08:20→16:29)
[2022-07-10] MEDS: GABAPENTIN 300 MG CAPSULE PO SCH ×3 (08:20→16:29)
[2022-07-10] MEDS: LORazepam 2 MG TABLET PO SCH ×3 (08:20→16:29)
[2022-07-10] MEDS ORDERED: AmLODIPine BESYLATE 5 MG TABLET PO SCH (09:00)
[2022-07-10 09:20] VITALS: BP 154/100
[2022-07-10 09:22] VITALS: BP 154/100
[2022-07-10] MEDS ORDERED: BUSP10TA23 PO ×2 (16:59→20:17)
[2022-07-10] MEDS ORDERED: TRAZ-252 PO ×2 (17:00→20:17)
[2022-07-10] MEDS ORDERED: GABA-1181 PO (20:17)
[2022-07-10] MEDS ORDERED: QUET300T19 PO (20:17)
[2022-07-11] MEDS ORDERED: LORazepam 1 MG TABLET PO PRN (07:00)
[2022-07-11] MEDS ORDERED: LORazepam 1 MG TABLET PO SCH (09:00)
[2022-07-12] MEDS ORDERED: LORazepam 1 MG TABLET PO PRN (07:00)
== END 2022-07-10 21:05 | disposition home or self-care (01) | DRG 750 ==
LOC: EMS 17:29 → B3A 07-08 02:00
PROVIDERS: ADMIT Psychiatry & Neurology Child & Adolescent Psychiatry; ATTEND Psychiatry & Neurology Child & Adolescent Psychiatry
DX: F25.1 Schizoaffective disorder, depressive type (principal); E11.9 Type 2 diabetes mellitus without complications; R45.851 Suicidal ideations; E03.9 Hypothyroidism, unspecified; Z20.822 Contact with and (suspected) exposure to COVID-19; E78.5 Hyperlipidemia, unspecified; F10.229 Alcohol dependence with intoxication, unspecified; F41.9 Anxiety disorder, unspecified; I10 Essential (primary) hypertension; Y90.8 Blood alcohol level of 240 mg/100 ml or more; Z59.00 Homelessness unspecified; Z91.19 Patient's noncompliance with other medical treatment and regimen
CPT/HCPCS: 80053; 81001; 81003; 83036; 84443; 85025; 87081; 99285; G0480

== ENCOUNTER 2022-07-18 16:54 | Inpatient (IN) | payer MEDICAID ==
[~2022-07-18] VITALS: Ht 185.4 cm; Wt 103.8 kg
[~2022-07-18 16:54] MED LIST changes: +BUSP10TA23 PO; +TRAZ-252 PO
[2022-07-18 18:04] LABS: BASOPHILS % (AUTO) 1.4 % (0.0-2.0); EOSINOPHILS % (AUTO) 4.1 % (1.0-6.0); HEMATOCRIT 46.1 % (41-53); HEMOGLOBIN 15.6 g/dL (13.5-17.5); LYMPHOCYTES % (AUTO) 49.3 % (22.0-44.0); MEAN CORPUSCULAR HEMOGLOBIN 32.5 pg (26.0-34.0); MEAN CORPUSCULAR VOLUME 96 fL (80-100); MONOCYTES # (AUTO) 0.5 K/uL (0.1-1.0); MONOCYTES % (AUTO) 7.8 % (2.0-9.0); NEUTROPHILS # (AUTO) 2.3 K/uL (1.8-7.7); NEUTROPHILS % (AUTO) 37.4 % (40.0-70.0); PLATELET COUNT (AUTO) 264 K/uL (150-450); RED BLOOD CELL COUNT(AUTO) 4.81 MIL/uL (4.50-5.90); RED CELL DISTRIBUTION WIDTH 13.8 % (11.5-14.5)
[2022-07-18 18:14] LABS: ANION GAP 12 mmol/L (8-16); CALCIUM, TOTAL 9.1 mg/dL (8.8-10.5); CARBON DIOXIDE 28 mmol/L (22-29); CHLORIDE 100 mmol/L (98-107); CREATININE 0.89 mg/dL (0.60-1.30); GLUCOSE,RANDOM 235 mg/dL (70-110); POTASSIUM 3.9 mmol/L (3.5-5.1); SODIUM SERUM 140 mmol/L (136-145); UREA NITROGEN, BLOOD 6 mg/dL (7-18)
[2022-07-18 18:20] LABS: ALANINE AMINOTRANSFERASE 30 U/L (12-78); ALBUMIN 3.7 g/dL (3.4-5.0); ALKALINE PHOSPHATASE 89 U/L (46-116); ASPARTATE AMINOTRANSFERASE 24 U/L (15-37); BILIRUBIN,TOTAL 0.2 mg/dL (0.1-1.0); LIPASE 96 U/L (73-393); TOTAL PROTEIN, SERUM 7.4 g/dL (6.4-8.2)
[2022-07-18 18:25] LABS: GLOMERULAR FILTR. RATE CALC > 60 mL/min (>60)
[2022-07-18] MEDS ORDERED: LORazepam 1 MG TABLET PO ONE (19:30)
[2022-07-18] MEDS ORDERED: HALOPERIDOL 5 MG TABLET PO ONE ×2 (19:30→21:15)
[2022-07-18 19:43] LABS: COVID AG,FIA SOURCE NASOPHARYNGEAL
[2022-07-18] MEDS ORDERED: ZOLPIDEM TARTRATE 10 MG TABLET PO ONE (21:15)
[2022-07-19] MEDS: ZOLPIDEM TARTRATE 10 MG TABLET PO PRN ×2 (02:33→02:36)
[2022-07-19] MEDS: LORazepam 2 MG TABLET PO PRN ×3 (02:34→21:41)
[2022-07-19] MEDS: HALOPERIDOL 5 MG TABLET PO PRN ×3 (04:18→21:41)
[2022-07-19 04:56] VITALS: BP 146/111
[2022-07-19 07:00] VITALS: BP 168/90
[2022-07-19] MEDS ORDERED: PERMETHRIN 5% 60 GM CREAM TP ONE (07:00)
[2022-07-19 09:05] VITALS: BP 167/114
[2022-07-19] MEDS: AmLODIPine BESYLATE 5 MG TABLET PO SCH (10:37)
[2022-07-19] MEDS: GABAPENTIN 300 MG CAPSULE PO SCH ×3 (10:37→18:44)
[2022-07-19] MEDS: BusPIRone HCL 10 MG TABLET PO SCH ×2 (14:25→18:43)
[2022-07-19] MEDS ORDERED: IBUPROFEN 400 MG TABLET PO PRN (16:15)
[2022-07-19] MEDS ORDERED: ACETAMINOPHEN 325 MG TABLET PO PRN (16:15)
[2022-07-19] MEDS ORDERED: DOCUSATE SODIUM 100 MG CAPSULE PO PRN (16:15)
[2022-07-19] MEDS ORDERED: GuaiFENesin/D-METHORPHAN [SUGAR-FREE] 200-20MG/10 ML SYRUP UDCUP PO PRN (16:15)
[2022-07-19] MEDS ORDERED: LOPERAMIDE HCL 2 MG CAPSULE PO PRN (16:15)
[2022-07-19] MEDS ORDERED: MAGNESIUM HYDROXIDE SUSPENSION 30 ML UDCUP PO PRN (16:15)
[2022-07-19] MEDS ORDERED: NICOTINE 14 MG/24 HOUR PATCH TD PRN (16:15)
[2022-07-19] MEDS ORDERED: ONDANSETRON HCL 4 MG TABLET PO PRN (16:15)
[2022-07-19] MEDS ORDERED: CloNIDine HCL 0.1 MG TABLET PO PRN (16:15)
[2022-07-19] MEDS ORDERED: PETROLATUM,WHITE 28 GM JELLY TP PRN (16:15)
[2022-07-19] MEDS ORDERED: ALBUTEROL SULFATE HFA 90 MCG/PUFF 8 GM INHALER IH PRN (16:15)
[2022-07-19] MEDS ORDERED: MAG HYDROX/AL HYDROX/SIMETH ES 30 ML SUSPENSION UDCUP PO PRN (16:15)
[2022-07-19 16:53] VITALS: BP 145/100
[2022-07-19] MEDS: QUEtiapine FUMARATE 300 MG TABLET PO SCH (20:48)
[2022-07-19] MEDS: TraZODone HCL 50 MG TABLET PO SCH (20:48)
[2022-07-20] MEDS: AmLODIPine BESYLATE 5 MG TABLET PO SCH (09:39)
[2022-07-20] MEDS: BusPIRone HCL 10 MG TABLET PO SCH ×3 (09:39→16:29)
[2022-07-20] MEDS: GABAPENTIN 300 MG CAPSULE PO SCH ×3 (09:39→16:29)
[2022-07-20 09:48] VITALS: BP 144/96
[2022-07-20] MEDS: LORazepam 2 MG TABLET PO PRN ×2 (13:46→21:25)
[2022-07-20 16:51] VITALS: BP 145/96
[2022-07-20] MEDS: TraZODone HCL 50 MG TABLET PO SCH (20:50)
[2022-07-20] MEDS: HALOPERIDOL 5 MG TABLET PO PRN (20:50)
[2022-07-20] MEDS: QUEtiapine FUMARATE 300 MG TABLET PO SCH (20:50)
[2022-07-21] MEDS: AmLODIPine BESYLATE 5 MG TABLET PO SCH (09:04)
[2022-07-21] MEDS: GABAPENTIN 300 MG CAPSULE PO SCH ×3 (09:04→16:21)
[2022-07-21] MEDS: BusPIRone HCL 10 MG TABLET PO SCH ×3 (09:04→16:21)
[2022-07-21 09:10] VITALS: BP 143/96
[2022-07-21] MEDS: LORazepam 2 MG TABLET PO PRN ×3 (11:10→20:36)
[2022-07-21] MEDS: TraZODone HCL 50 MG TABLET PO SCH (20:36)
[2022-07-21] MEDS: QUEtiapine FUMARATE 300 MG TABLET PO SCH (20:36)
[2022-07-22 09:34] VITALS: BP 152/94
[2022-07-22] MEDS: AmLODIPine BESYLATE 5 MG TABLET PO SCH (09:37)
[2022-07-22] MEDS: GABAPENTIN 300 MG CAPSULE PO SCH ×3 (09:37→17:56)
[2022-07-22] MEDS: LORazepam 2 MG TABLET PO PRN ×2 (09:37→17:56)
[2022-07-22] MEDS: BusPIRone HCL 10 MG TABLET PO SCH ×3 (09:37→17:56)
[2022-07-22] MEDS: HALOPERIDOL 5 MG TABLET PO PRN ×2 (09:38→17:56)
[2022-07-22 16:55] VITALS: BP 157/108
[2022-07-22] MEDS: TraZODone HCL 50 MG TABLET PO SCH (20:36)
[2022-07-22] MEDS: QUEtiapine FUMARATE 300 MG TABLET PO SCH (20:36)
[2022-07-23 08:00] VITALS: BP 145/97
[2022-07-23] MEDS: GABAPENTIN 300 MG CAPSULE PO SCH ×3 (09:31→16:18)
[2022-07-23] MEDS: AmLODIPine BESYLATE 5 MG TABLET PO SCH (09:31)
[2022-07-23] MEDS: BusPIRone HCL 10 MG TABLET PO SCH ×3 (09:32→16:18)
[2022-07-23] MEDS: LORazepam 2 MG TABLET PO PRN ×2 (12:36→16:48)
[2022-07-23 16:12] VITALS: BP 142/71
[2022-07-23] MEDS: QUEtiapine FUMARATE 300 MG TABLET PO SCH (21:02)
[2022-07-23] MEDS: TraZODone HCL 50 MG TABLET PO SCH (21:02)
[2022-07-23] MEDS: ZOLPIDEM TARTRATE 10 MG TABLET PO PRN (21:26)
[2022-07-24 01:40] VITALS: BP 135/93
[2022-07-24] MEDS: LORazepam 2 MG TABLET PO PRN ×2 (01:44→12:54)
[2022-07-24 08:00] VITALS: BP 143/93
[2022-07-24] MEDS: GABAPENTIN 300 MG CAPSULE PO SCH ×2 (09:52→12:54)
[2022-07-24] MEDS: BusPIRone HCL 10 MG TABLET PO SCH ×2 (09:52→12:54)
[2022-07-24] MEDS: AmLODIPine BESYLATE 5 MG TABLET PO SCH (09:53)
[2022-07-24] MEDS ORDERED: QUET300T19 PO (11:36)
[2022-07-24] MEDS ORDERED: GABA-1181 PO (11:36)
[2022-07-24] MEDS ORDERED: BUSP10TA23 PO (11:36)
[2022-07-24] MEDS ORDERED: TRAZ-252 PO (11:36)
[2022-07-24] MEDS ORDERED: AMLO-257 PO (12:23)
== END 2022-07-24 15:30 | disposition home or self-care (01) | DRG 750 ==
LOC: EMS 16:54 → 3EI 07-19 04:20
PROVIDERS: ADMIT Psychiatry & Neurology Child & Adolescent Psychiatry; ATTEND Psychiatry & Neurology Child & Adolescent Psychiatry
DX: F25.1 Schizoaffective disorder, depressive type (principal); R45.851 Suicidal ideations; I10 Essential (primary) hypertension; E03.9 Hypothyroidism, unspecified; E11.65 Type 2 diabetes mellitus with hyperglycemia; E78.5 Hyperlipidemia, unspecified; F10.229 Alcohol dependence with intoxication, unspecified; F41.9 Anxiety disorder, unspecified; Z20.822 Contact with and (suspected) exposure to COVID-19; Z59.00 Homelessness unspecified; Z87.891 Personal history of nicotine dependence; Z79.899 Other long term (current) drug therapy
CPT/HCPCS: 80053; 83690; 85025; 87081; 99285; G0480

== ENCOUNTER 2022-07-27 12:18 | Inpatient (IN) | payer MEDICAID ==
[~2022-07-27] VITALS: Ht 180.3 cm; Wt 101.0 kg
[~2022-07-27 12:18] MED LIST changes: +AMLO-257 PO
[2022-07-27 13:00] LABS: BASOPHILS % (AUTO) 0.3 % (0.0-2.0); EOSINOPHILS % (AUTO) 0.3 % (1.0-6.0); HEMATOCRIT 48.8 % (41-53); HEMOGLOBIN 16.6 g/dL (13.5-17.5); LYMPHOCYTES # (AUTO) 1.3 K/uL (1.0-4.8); LYMPHOCYTES % (AUTO) 7.9 % (22.0-44.0); MEAN CORPUSCULAR HEMOGLOBIN 32.7 pg (26.0-34.0); MEAN CORPUSCULAR VOLUME 96 fL (80-100); MONOCYTES # (AUTO) 2.3 K/uL (0.1-1.0); MONOCYTES % (AUTO) 14.5 % (2.0-9.0); NEUTROPHILS # (AUTO) 12.3 K/uL (1.8-7.7); PLATELET COUNT (AUTO) 197 K/uL (150-450); RED BLOOD CELL COUNT(AUTO) 5.08 MIL/uL (4.50-5.90); RED CELL DISTRIBUTION WIDTH 13.4 % (11.5-14.5)
[2022-07-27] MEDS ORDERED: SODIUM CHLORIDE 0.9% 1,000 ML IV ONE ×2 (13:00→14:15)
[2022-07-27] MEDS ORDERED: LORazepam 2 MG/ML VIAL IVP ONE ×2 (13:00→14:15)
[2022-07-27 13:13] LABS: ANION GAP 22 mmol/L (8-16); CALCIUM, TOTAL 9.7 mg/dL (8.8-10.5); CARBON DIOXIDE 18 mmol/L (22-29); CHLORIDE 87 mmol/L (98-107); CREATININE 0.89 mg/dL (0.60-1.30); GLOMERULAR FILTR. RATE CALC > 60 mL/min (>60); GLUCOSE,RANDOM 316 mg/dL (70-110); POTASSIUM 4.3 mmol/L (3.5-5.1); SODIUM SERUM 127 mmol/L (136-145); UREA NITROGEN, BLOOD 12 mg/dL (7-18)
[2022-07-27 13:18] LABS: ALANINE AMINOTRANSFERASE 29 U/L (12-78); ALBUMIN 4.1 g/dL (3.4-5.0); ALKALINE PHOSPHATASE 93 U/L (46-116); ASPARTATE AMINOTRANSFERASE 20 U/L (15-37); BILIRUBIN,TOTAL 0.9 mg/dL (0.1-1.0); TOTAL PROTEIN, SERUM 8.2 g/dL (6.4-8.2)
[2022-07-27 13:56] LABS: COVID AG,FIA SOURCE NASOPHARYNGEAL
[2022-07-27 13:57] LABS: CREATINE KINASE, TOTAL ONLY 105 U/L (39-308)
[2022-07-27] MEDS ORDERED: ACETAMINOPHEN 325 MG TABLET PO PRN ×2 (14:45→16:00)
[2022-07-27] MEDS ORDERED: ONDANSETRON HCL 4 MG/2 ML VIAL IVP PRN ×2 (14:45→16:00)
[2022-07-27] MEDS ORDERED: 0.9% SODIUM CHLORIDE 10 ML SYRINGE IVP PRN (14:45)
[2022-07-27] MEDS ORDERED: LORazepam 2 MG/ML VIAL IM PRN (16:00)
[2022-07-27] MEDS ORDERED: HYDROCODONE/ACETAMINOPHEN 5-325 MG TABLET PO PRN (16:00)
[2022-07-27] MEDS ORDERED: BISACODYL 10 MG RECTAL RECTAL SUPPOSITORY PR PRN (16:00)
[2022-07-27] MEDS ORDERED: MORPHINE SULFATE 2 MG/ML SYRINGE IVP PRN (16:00)
[2022-07-27] MEDS ORDERED: MAGNESIUM SULFATE 2 GM, MVI, ADULT NO.1 WITH VIT K 10 ML, THIAMINE 100 MG, FOLIC ACID 1... IV ONE ×5 (16:00)
[2022-07-27] MEDS ORDERED: MAGNESIUM HYDROXIDE SUSPENSION 30 ML UDCUP PO PRN (16:00)
[2022-07-27] MEDS ORDERED: ZOLPIDEM TARTRATE 5 MG TABLET PO PRN (16:00)
[2022-07-27] MEDS: ChlordiazePOXIDE HCL 25 MG CAPSULE PO SCH ×2 (17:04→20:09)
[2022-07-27] MEDS: GABAPENTIN 300 MG CAPSULE PO SCH ×2 (17:05→20:09)
[2022-07-27] MEDS: BusPIRone HCL 10 MG TABLET PO SCH ×2 (17:05→21:00)
[2022-07-27] MEDS: HEPARIN SODIUM,PORCINE 5,000 UNITS/ML VIAL SQ SCH (17:05)
[2022-07-27] MEDS: DOCUSATE SODIUM 100 MG CAPSULE PO SCH (20:09)
[2022-07-27] MEDS: TraZODone HCL 50 MG TABLET PO SCH (20:09)
[2022-07-27 20:45] VITALS: BP 134/95
[2022-07-27] MEDS: QUEtiapine FUMARATE 300 MG TABLET PO SCH (21:17)
[2022-07-27] MEDS: LORazepam 2 MG/ML VIAL IVP PRN (21:48)
[2022-07-27 23:47] VITALS: BP 126/65
[2022-07-28] VITALS (8 sets, daily range): BP systolic 128–139; BP diastolic 64–99
[2022-07-28 06:41] LABS: BASOPHILS % (AUTO) 0.6 % (0.0-2.0); EOSINOPHILS % (AUTO) 0.3 % (1.0-6.0); HEMATOCRIT 40.2 % (41-53); HEMOGLOBIN 13.9 g/dL (13.5-17.5); LYMPHOCYTES # (AUTO) 1.4 K/uL (1.0-4.8); LYMPHOCYTES % (AUTO) 15.7 % (22.0-44.0); MEAN CORPUSCULAR HEMOGLOBIN 32.8 pg (26.0-34.0); MEAN CORPUSCULAR HGB CONC 34.5 G/dL (31.0-37.0); MEAN CORPUSCULAR VOLUME 95 fL (80-100); MONOCYTES # (AUTO) 1.6 K/uL (0.1-1.0); MONOCYTES % (AUTO) 18.8 % (2.0-9.0); NEUTROPHILS # (AUTO) 5.6 K/uL (1.8-7.7); NEUTROPHILS % (AUTO) 64.6 % (40.0-70.0); PLATELET COUNT (AUTO) 189 K/uL (150-450); RED BLOOD CELL COUNT(AUTO) 4.23 MIL/uL (4.50-5.90); RED CELL DISTRIBUTION WIDTH 13.4 % (11.5-14.5)
[2022-07-28 06:58] LABS: ALANINE AMINOTRANSFERASE 15 U/L (12-78); ALBUMIN 3.1 g/dL (3.4-5.0); ALKALINE PHOSPHATASE 68 U/L (46-116); ANION GAP 9 mmol/L (8-16); ASPARTATE AMINOTRANSFERASE 10 U/L (15-37); BILIRUBIN,TOTAL 0.7 mg/dL (0.1-1.0); CALCIUM, TOTAL 8.7 mg/dL (8.8-10.5); CARBON DIOXIDE 26 mmol/L (22-29); CHLORIDE 96 mmol/L (98-107); CREATININE 0.76 mg/dL (0.60-1.30); GLOMERULAR FILTR. RATE CALC > 60 mL/min (>60); GLUCOSE,RANDOM 312 mg/dL (70-110); POTASSIUM 3.4 mmol/L (3.5-5.1); SODIUM SERUM 131 mmol/L (136-145); TOTAL PROTEIN, SERUM 6.7 g/dL (6.4-8.2); UREA NITROGEN, BLOOD 10 mg/dL (7-18)
[2022-07-28] MEDS: HEPARIN SODIUM,PORCINE 5,000 UNITS/ML VIAL SQ SCH ×4 (08:34→22:15)
[2022-07-28] MEDS: AmLODIPine BESYLATE 5 MG TABLET PO SCH (08:35)
[2022-07-28] MEDS: ChlordiazePOXIDE HCL 25 MG CAPSULE PO SCH ×3 (08:35→20:32)
[2022-07-28] MEDS: GABAPENTIN 300 MG CAPSULE PO SCH ×3 (08:35→20:32)
[2022-07-28] MEDS: DOCUSATE SODIUM 100 MG CAPSULE PO SCH ×2 (08:35→20:33)
[2022-07-28] MEDS: PANTOPRAZOLE SODIUM 40 MG DR TABLET PO SCH (08:35)
[2022-07-28] MEDS: BusPIRone HCL 10 MG TABLET PO SCH ×3 (10:24→20:32)
[2022-07-28] MEDS: LORazepam 2 MG/ML VIAL IVP PRN ×2 (17:18→22:15)
[2022-07-28] MEDS: QUEtiapine FUMARATE 300 MG TABLET PO SCH (20:32)
[2022-07-28] MEDS: TraZODone HCL 50 MG TABLET PO SCH (20:32)
[2022-07-29] VITALS (8 sets, daily range): BP systolic 118–166; BP diastolic 71–114
[2022-07-29 06:18] LABS: BASOPHILS % (AUTO) 0.9 % (0.0-2.0); EOSINOPHILS % (AUTO) 1.4 % (1.0-6.0); HEMATOCRIT 38.9 % (41-53); HEMOGLOBIN 13.4 g/dL (13.5-17.5); LYMPHOCYTES # (AUTO) 1.9 K/uL (1.0-4.8); LYMPHOCYTES % (AUTO) 33.7 % (22.0-44.0); MEAN CORPUSCULAR HEMOGLOBIN 32.2 pg (26.0-34.0); MEAN CORPUSCULAR HGB CONC 34.3 G/dL (31.0-37.0); MEAN CORPUSCULAR VOLUME 94 fL (80-100); MONOCYTES # (AUTO) 0.9 K/uL (0.1-1.0); NEUTROPHILS # (AUTO) 2.7 K/uL (1.8-7.7); PLATELET COUNT (AUTO) 175 K/uL (150-450); RED BLOOD CELL COUNT(AUTO) 4.15 MIL/uL (4.50-5.90); RED CELL DISTRIBUTION WIDTH 13.4 % (11.5-14.5)
[2022-07-29] MEDS: GABAPENTIN 300 MG CAPSULE PO SCH ×3 (08:45→21:13)
[2022-07-29] MEDS: ChlordiazePOXIDE HCL 25 MG CAPSULE PO SCH ×3 (08:45→21:13)
[2022-07-29] MEDS: HEPARIN SODIUM,PORCINE 5,000 UNITS/ML VIAL SQ SCH ×3 (08:45→23:38)
[2022-07-29] MEDS: AmLODIPine BESYLATE 5 MG TABLET PO SCH (08:46)
[2022-07-29] MEDS: BusPIRone HCL 10 MG TABLET PO SCH ×3 (08:46→21:13)
[2022-07-29] MEDS: DOCUSATE SODIUM 100 MG CAPSULE PO SCH ×2 (08:46→21:13)
[2022-07-29] MEDS: LORazepam 2 MG/ML VIAL IVP PRN ×4 (08:48→23:38)
[2022-07-29] MEDS: PANTOPRAZOLE SODIUM 40 MG DR TABLET PO SCH (12:57)
[2022-07-29] MEDS ORDERED: AmLODIPine BESYLATE 5 MG TABLET PO ONE (16:30)
[2022-07-29] MEDS ORDERED: POTASSIUM CHLORIDE 20 MEQ ER TABLET PO ONE (16:30)
[2022-07-29 20:09] LABS: COVID AG,FIA SOURCE NASOPHARYNGEAL
[2022-07-29] MEDS: TraZODone HCL 50 MG TABLET PO SCH (21:13)
[2022-07-29] MEDS: QUEtiapine FUMARATE 300 MG TABLET PO SCH (21:13)
[2022-07-30] MEDS ORDERED: AmLODIPine BESYLATE 10 MG TABLET PO SCH (09:00)
[2022-07-31] MEDS ORDERED: BUSP10TA23 PO (11:07)
[2022-07-31] MEDS ORDERED: TRAZ-252 PO (11:07)
[2022-07-31] MEDS ORDERED: GABA-1181 PO (11:07)
[2022-07-31] MEDS ORDERED: QUET300T19 PO (11:07)
== END 2022-07-30 | DRG 426 ==
LOC: EMS 13:19 → 5S 18:31
PROVIDERS: ADMIT Internal Medicine; ATTEND Internal Medicine
DX: E87.1 Hypo-osmolality and hyponatremia (principal); R45.851 Suicidal ideations; R65.10 Systemic inflammatory response syndrome (SIRS) of non-infectious origin without acute organ dysfunction; F25.1 Schizoaffective disorder, depressive type; F10.139 Alcohol abuse with withdrawal, unspecified; E87.6 Hypokalemia; Z91.51 Personal history of suicidal behavior; Z79.899 Other long term (current) drug therapy
CPT/HCPCS: 80053; 82550; 83036; 85025; 93005; 99291; G0378; G0480; J1644; J2060; J3411; J3475; J3490; J7030

== ENCOUNTER 2022-07-30 00:15 | Inpatient (IN) | payer MEDICAID ==
[~2022-07-30] VITALS: Ht 180.3 cm; Wt 101.2 kg
[2022-07-30 03:10] VITALS: BP 145/98
[2022-07-30] MEDS ORDERED: HALOPERIDOL 5 MG TABLET PO PRN (04:00)
[2022-07-30] MEDS ORDERED: ZOLPIDEM TARTRATE 10 MG TABLET PO PRN (04:00)
[2022-07-30 04:45] VITALS: BP 140/111
[2022-07-30] MEDS: LORazepam 2 MG TABLET PO PRN ×3 (04:47→20:17)
[2022-07-30] MEDS ORDERED: GuaiFENesin/D-METHORPHAN [SUGAR-FREE] 200-20MG/10 ML SYRUP UDCUP PO PRN (06:30)
[2022-07-30] MEDS ORDERED: NICOTINE 14 MG/24 HOUR PATCH TD PRN (06:30)
[2022-07-30] MEDS ORDERED: MAGNESIUM HYDROXIDE SUSPENSION 30 ML UDCUP PO PRN (06:30)
[2022-07-30] MEDS ORDERED: MAG HYDROX/AL HYDROX/SIMETH ES 30 ML SUSPENSION UDCUP PO PRN (06:30)
[2022-07-30] MEDS ORDERED: LOPERAMIDE HCL 2 MG CAPSULE PO PRN (06:30)
[2022-07-30] MEDS ORDERED: PETROLATUM,WHITE 28 GM JELLY TP PRN (06:30)
[2022-07-30] MEDS ORDERED: DOCUSATE SODIUM 100 MG CAPSULE PO PRN (06:30)
[2022-07-30] MEDS ORDERED: IBUPROFEN 400 MG TABLET PO PRN (06:30)
[2022-07-30] MEDS ORDERED: ONDANSETRON HCL 4 MG TABLET PO PRN (06:30)
[2022-07-30] MEDS ORDERED: CloNIDine HCL 0.1 MG TABLET PO PRN (06:30)
[2022-07-30] MEDS ORDERED: ALBUTEROL SULFATE HFA 90 MCG/PUFF 8 GM INHALER IH PRN (06:30)
[2022-07-30] MEDS ORDERED: ACETAMINOPHEN 325 MG TABLET PO PRN (06:30)
[2022-07-30 07:31] LABS: BASOPHILS % (AUTO) 0.8 % (0.0-2.0); EOSINOPHILS % (AUTO) 2.5 % (1.0-6.0); HEMATOCRIT 41.3 % (41-53); LYMPHOCYTES # (AUTO) 1.6 K/uL (1.0-4.8); LYMPHOCYTES % (AUTO) 25.4 % (22.0-44.0); MEAN CORPUSCULAR HEMOGLOBIN 31.9 pg (26.0-34.0); MEAN CORPUSCULAR HGB CONC 33.9 G/dL (31.0-37.0); MEAN CORPUSCULAR VOLUME 94 fL (80-100); MONOCYTES # (AUTO) 0.8 K/uL (0.1-1.0); MONOCYTES % (AUTO) 12.2 % (2.0-9.0); NEUTROPHILS # (AUTO) 3.7 K/uL (1.8-7.7); NEUTROPHILS % (AUTO) 59.1 % (40.0-70.0); PLATELET COUNT (AUTO) 208 K/uL (150-450); RED BLOOD CELL COUNT(AUTO) 4.39 MIL/uL (4.50-5.90); RED CELL DISTRIBUTION WIDTH 13.2 % (11.5-14.5)
[2022-07-30 07:40] LABS: HEMOGLOBIN A1C 10.1 % (3.8-5.6)
[2022-07-30 07:48] LABS: ALANINE AMINOTRANSFERASE 18 U/L (12-78); ALBUMIN 2.9 g/dL (3.4-5.0); ALKALINE PHOSPHATASE 68 U/L (46-116); ANION GAP 7 mmol/L (8-16); ASPARTATE AMINOTRANSFERASE 12 U/L (15-37); BILIRUBIN,TOTAL 0.3 mg/dL (0.1-1.0); CALCIUM, TOTAL 8.8 mg/dL (8.8-10.5); CARBON DIOXIDE 28 mmol/L (22-29); CHLORIDE 97 mmol/L (98-107); CHOL/HDL RATIO 5.3 (4.2-7.3); CHOLESTEROL 165 mg/dL (131-200); CREATININE 0.78 mg/dL (0.60-1.30); FREE T4 (FREE THYROXINE) 0.89 ng/dL (0.76-1.46); GLUCOSE,RANDOM 328 mg/dL (70-110); HDL CHOLESTEROL 31 mg/dL (40-60); LDL CHOL (CALC.) 84 mg/dL (0-130); POTASSIUM 3.4 mmol/L (3.5-5.1); SODIUM SERUM 132 mmol/L (136-145); THYROID STIMULATING HORMONE 8.68 uIU/mL (0.36-3.74); TOTAL PROTEIN, SERUM 6.5 g/dL (6.4-8.2); TRIGLYCERIDES 249 mg/dL (15-150); UREA NITROGEN, BLOOD 9 mg/dL (7-18)
[2022-07-30 07:49] LABS: GLOMERULAR FILTR. RATE CALC > 60 mL/min (>60)
[2022-07-30] MEDS ORDERED: ChlordiazePOXIDE HCL 25 MG CAPSULE PO SCH (09:00)
[2022-07-30] MEDS: AmLODIPine BESYLATE 5 MG TABLET PO SCH (09:32)
[2022-07-30 11:50] VITALS: BP 154/114
[2022-07-30] MEDS ORDERED: POTASSIUM CHLORIDE 20 MEQ ER TABLET PO ONE (12:45)
[2022-07-30] MEDS: GABAPENTIN 300 MG CAPSULE PO SCH ×2 (13:50→17:05)
[2022-07-30] MEDS: BusPIRone HCL 10 MG TABLET PO SCH ×2 (13:52→17:05)
[2022-07-30 16:30] VITALS: BP 169/109
[2022-07-30] MEDS ORDERED: QUEtiapine FUMARATE 300 MG TABLET PO SCH (21:00)
[2022-07-30] MEDS ORDERED: TraZODone HCL 50 MG TABLET PO SCH (21:00)
[2022-07-31 02:48] VITALS: BP 150/96
[2022-07-31] MEDS: LORazepam 2 MG TABLET PO PRN (02:48)
[2022-07-31 08:30] VITALS: BP 143/99
[2022-07-31] MEDS: GABAPENTIN 300 MG CAPSULE PO SCH ×2 (08:59→13:34)
[2022-07-31] MEDS: AmLODIPine BESYLATE 5 MG TABLET PO SCH (08:59)
[2022-07-31] MEDS: BusPIRone HCL 10 MG TABLET PO SCH ×2 (08:59→13:33)
[2022-07-31] MEDS ORDERED: BUSP10TA23 PO (11:07)
[2022-07-31] MEDS ORDERED: GABA-1181 PO (11:07)
[2022-07-31] MEDS ORDERED: QUET300T19 PO (11:07)
[2022-07-31] MEDS ORDERED: TRAZ-252 PO (11:07)
[2022-07-31 16:21] VITALS: BP 141/99
== END 2022-07-31 17:20 | disposition home or self-care (01) | DRG 750 ==
LOC: 3EI 00:15
PROVIDERS: ADMIT Psychiatry & Neurology Child & Adolescent Psychiatry; ATTEND Psychiatry & Neurology Child & Adolescent Psychiatry
DX: F25.1 Schizoaffective disorder, depressive type (principal); F10.239 Alcohol dependence with withdrawal, unspecified; Z79.899 Other long term (current) drug therapy
CPT/HCPCS: 80053; 80061; 83036; 84132; 84439; 84443; 85025; 87081

== ENCOUNTER 2022-08-08 19:53 | Inpatient (IN) | payer MEDICAID ==
[~2022-08-08] VITALS: Ht 182.9 cm; Wt 98.0 kg
[2022-08-08] MEDS ORDERED: SERT-158 PO (20:57)
[2022-08-08] MEDS ORDERED: PANTOPRAZOLE SODIUM 40 MG/VIAL IVP ONE (21:00)
[2022-08-08] MEDS ORDERED: SODIUM CHLORIDE 0.9% 1,000 ML IV ONE (21:00)
[2022-08-08 21:06] LABS: BASOPHILS % (AUTO) 0.8 % (0.0-2.0); EOSINOPHILS % (AUTO) 0.6 % (1.0-6.0); HEMATOCRIT 45.3 % (41-53); HEMOGLOBIN 15.4 g/dL (13.5-17.5); LYMPHOCYTES # (AUTO) 2.8 K/uL (1.0-4.8); MEAN CORPUSCULAR HEMOGLOBIN 32.1 pg (26.0-34.0); MEAN CORPUSCULAR VOLUME 94 fL (80-100); MONOCYTES # (AUTO) 0.7 K/uL (0.1-1.0); MONOCYTES % (AUTO) 6.9 % (2.0-9.0); NEUTROPHILS # (AUTO) 6.8 K/uL (1.8-7.7); NEUTROPHILS % (AUTO) 64.7 % (40.0-70.0); PLATELET COUNT (AUTO) 384 K/uL (150-450); RED BLOOD CELL COUNT(AUTO) 4.81 MIL/uL (4.50-5.90); RED CELL DISTRIBUTION WIDTH 13.6 % (11.5-14.5)
[2022-08-08 21:12] LABS: ANION GAP 16 mmol/L (8-16); CARBON DIOXIDE 24 mmol/L (22-29); CHLORIDE 91 mmol/L (98-107); CREATININE 0.88 mg/dL (0.60-1.30); GLUCOSE,RANDOM 282 mg/dL (70-110); POTASSIUM 3.6 mmol/L (3.5-5.1); SODIUM SERUM 131 mmol/L (136-145); UREA NITROGEN, BLOOD 6 mg/dL (7-18)
[2022-08-08 21:13] LABS: GLOMERULAR FILTR. RATE CALC > 60 mL/min (>60)
[2022-08-08 21:27] LABS: ALANINE AMINOTRANSFERASE 27 U/L (12-78); ALBUMIN 3.4 g/dL (3.4-5.0); ALKALINE PHOSPHATASE 106 U/L (46-116); ASPARTATE AMINOTRANSFERASE 18 U/L (15-37); BILIRUBIN,TOTAL 0.4 mg/dL (0.1-1.0); TOTAL PROTEIN, SERUM 7.5 g/dL (6.4-8.2)
[2022-08-08] MEDS ORDERED: ONDANSETRON HCL 4 MG/2 ML VIAL IVP ONE (22:15)
[2022-08-08] MEDS ORDERED: ONDANSETRON HCL 4 MG TABLET PO ONE (23:15)
[2022-08-08] MEDS ORDERED: FAMOTIDINE 20 MG TABLET PO ONE (23:15)
[2022-08-09 01:13] LABS: AMPHET/METH SCREEN,URINE NEGATIVE (NEGATIVE); BARBITURATE SCREEN, URINE NEGATIVE (NEGATIVE); BENZODIAZEPINES SCREEN,URINE POSITIVE (NEGATIVE); CANNABINOID SCREEN,URINE NEGATIVE (NEGATIVE); COCAINE SCREEN,URINE NEGATIVE (NEGATIVE); METHADONE SCREEN, URINE NEGATIVE (NEGATIVE); OPIATE SCREEN,URINE NEGATIVE (NEGATIVE)
[2022-08-09 01:18] LABS: PHENCYCLIDINE SCREEN,URINE NEGATIVE (NEGATIVE)
[2022-08-09] MEDS ORDERED: HALOPERIDOL 5 MG TABLET PO PRN (03:45)
[2022-08-09] MEDS ORDERED: ZOLPIDEM TARTRATE 10 MG TABLET PO PRN (03:45)
[2022-08-09 06:04] LABS: COVID AG,FIA SOURCE NASAL SWAB
[2022-08-09] MEDS: LORazepam 2 MG TABLET PO PRN ×2 (07:57→15:58)
[2022-08-09 10:16] VITALS: BP 140/90
[2022-08-09] MEDS ORDERED: INFLUENZA VIRUS VACCINE QVS 2022-23 (6MO+)/PF 60 MCG/0.5 ML SYRINGE IM. ONE (11:30)
[2022-08-09] MEDS: BusPIRone HCL 10 MG TABLET PO SCH ×2 (13:14→17:47)
[2022-08-09] MEDS: GABAPENTIN 300 MG CAPSULE PO SCH ×2 (13:14→16:44)
[2022-08-09] MEDS: QUEtiapine FUMARATE 25 MG TABLET PO SCH (16:45)
[2022-08-09] MEDS: AmLODIPine BESYLATE 5 MG TABLET PO SCH (17:47)
[2022-08-09] MEDS ORDERED: ChlordiazePOXIDE HCL 25 MG CAPSULE PO PRN (18:15)
[2022-08-09 18:17] VITALS: BP 166/94
[2022-08-09 18:55] VITALS: BP 166/94
[2022-08-09 20:00] VITALS: BP 153/100
[2022-08-09] MEDS: QUEtiapine FUMARATE 100 MG TABLET PO SCH (20:51)
[2022-08-09] MEDS: TraZODone HCL 50 MG TABLET PO SCH (20:51)
[2022-08-09] MEDS ORDERED: QUEtiapine FUMARATE 300 MG TABLET PO SCH (21:00)
[2022-08-09 21:10] VITALS: BP 156/116
[2022-08-09 22:13] VITALS: BP 118/89
[2022-08-10] VITALS (11 sets, daily range): BP systolic 111–149; BP diastolic 63–110
[2022-08-10 07:00] LABS: APPEARANCE,URINE CLEAR (CLEAR); BILIRUBIN,URINE NEGATIVE (NEGATIVE); GLUCOSE, URINE (UA) >=1000 mg/dL (NEGATIVE); KETONES,URINE =>150 mg/dL (NEGATIVE); LEUKOCYTE ESTERASE ,URINE NEGATIVE (NEGATIVE); NITRATE,URINE NEGATIVE (NEGATIVE); OCCULT BLOOD,URINE NEGATIVE (NEGATIVE); PROTEIN,URINE NEGATIVE (NEGATIVE); SPECIFIC GRAVITIY, URINE 1.003 (1.003-1.030); UROBILINOGEN,URINE <=1.0 mg/dL (<=1.0)
[2022-08-10] MEDS ORDERED: ChlordiazePOXIDE HCL 25 MG CAPSULE PO PRN (07:00)
[2022-08-10 07:11] LABS: AMPHET/METH SCREEN,URINE NEGATIVE (NEGATIVE); BARBITURATE SCREEN, URINE NEGATIVE (NEGATIVE); BENZODIAZEPINES SCREEN,URINE NEGATIVE (NEGATIVE); CANNABINOID SCREEN,URINE NEGATIVE (NEGATIVE); COCAINE SCREEN,URINE NEGATIVE (NEGATIVE); METHADONE SCREEN, URINE NEGATIVE (NEGATIVE); OPIATE SCREEN,URINE NEGATIVE (NEGATIVE)
[2022-08-10 07:15] LABS: PHENCYCLIDINE SCREEN,URINE NEGATIVE (NEGATIVE)
[2022-08-10 07:18] LABS: BACTERIA,URINE None Seen /HPF (None Seen); RBC,URINE None Seen /HPF (0-2); WBC,URINE None Seen /HPF (0-5)
[2022-08-10] MEDS: BusPIRone HCL 10 MG TABLET PO SCH ×3 (08:38→16:57)
[2022-08-10] MEDS: GABAPENTIN 300 MG CAPSULE PO SCH ×3 (08:38→16:57)
[2022-08-10] MEDS: AmLODIPine BESYLATE 5 MG TABLET PO SCH (08:38)
[2022-08-10] MEDS: QUEtiapine FUMARATE 25 MG TABLET PO SCH ×2 (08:38→16:57)
[2022-08-10] MEDS: ChlordiazePOXIDE HCL 25 MG CAPSULE PO SCH ×4 (08:38→20:13)
[2022-08-10] MEDS: CloNIDine HCL 0.1 MG TABLET PO SCH (16:57)
[2022-08-10] MEDS: TraZODone HCL 50 MG TABLET PO SCH (20:13)
[2022-08-10] MEDS: QUEtiapine FUMARATE 100 MG TABLET PO SCH (20:13)
[2022-08-11 08:24] LABS: ANION GAP 9 mmol/L (8-16); CALCIUM, TOTAL 8.4 mg/dL (8.8-10.5); CARBON DIOXIDE 28 mmol/L (22-29); CHLORIDE 94 mmol/L (98-107); CREATININE 0.88 mg/dL (0.60-1.30); GLUCOSE,RANDOM 369 mg/dL (70-110); POTASSIUM 3.3 mmol/L (3.5-5.1); SODIUM SERUM 131 mmol/L (136-145); UREA NITROGEN, BLOOD 5 mg/dL (7-18)
[2022-08-11 08:27] LABS: GLOMERULAR FILTR. RATE CALC > 60 mL/min (>60)
[2022-08-11] MEDS ORDERED: MAG HYDROX/AL HYDROX/SIMETH ES 30 ML SUSPENSION UDCUP PO PRN (08:30)
[2022-08-11 08:45] VITALS: BP 157/99
[2022-08-11] MEDS: GABAPENTIN 300 MG CAPSULE PO SCH ×3 (09:20→16:37)
[2022-08-11] MEDS: BusPIRone HCL 10 MG TABLET PO SCH ×3 (09:20→16:37)
[2022-08-11] MEDS: QUEtiapine FUMARATE 25 MG TABLET PO SCH ×2 (09:20→16:37)
[2022-08-11] MEDS: CloNIDine HCL 0.1 MG TABLET PO SCH ×3 (09:21→16:37)
[2022-08-11] MEDS: ChlordiazePOXIDE HCL 25 MG CAPSULE PO SCH ×4 (09:21→20:33)
[2022-08-11] MEDS ORDERED: GLUCAGON,HUMAN RECOMBINANT 1 MG VIAL IM PRN (09:45)
[2022-08-11] MEDS ORDERED: INSULIN REGULAR, HUMAN 100 UNITS/ML SQ ONE (11:30)
[2022-08-11] MEDS: MetFORMIN HCL 500 MG TABLET PO SCH ×2 (11:36→16:37)
[2022-08-11] MEDS ORDERED: INSULIN LISPRO 100 UNITS/ML SQ ONE ×2 (11:45→13:15)
[2022-08-11 12:30] VITALS: BP 116/74
[2022-08-11] MEDS: FAMOTIDINE 20 MG TABLET PO SCH ×2 (12:32→16:37)
[2022-08-11 12:36] LABS: GLUCOMETER DEV NAME(LOC) BV2X.2; GLUCOSE,POINT OF CARE 506 MG/DL (70-110)
[2022-08-11 13:31] LABS: GLUCOMETER DEV NAME(LOC) BV2S.; GLUCOSE,POINT OF CARE 440 MG/DL (70-110)
[2022-08-11 14:36] LABS: GLUCOMETER DEV NAME(LOC) BV2S.; GLUCOSE,POINT OF CARE 237 MG/DL (70-110)
[2022-08-11 16:05] VITALS: BP 135/85
[2022-08-11] MEDS: INSULIN LISPRO 100 UNITS/ML SQ PRN ×2 (16:45→20:53)
[2022-08-11 16:56] LABS: GLUCOMETER DEV NAME(LOC) BV2S.; GLUCOSE,POINT OF CARE 327 MG/DL (70-110)
[2022-08-11] MEDS: TraZODone HCL 50 MG TABLET PO SCH (20:33)
[2022-08-11] MEDS: QUEtiapine FUMARATE 100 MG TABLET PO SCH (20:34)
[2022-08-11] MEDS ORDERED: INSULIN GLARGINE,HUM.REC.ANLOG 100 UNITS/ML SQ SCH (21:00)
[2022-08-11 21:07] LABS: GLUCOMETER DEV NAME(LOC) BV2S.; GLUCOSE,POINT OF CARE 284 MG/DL (70-110)
[2022-08-12 06:26] LABS: GLUCOMETER DEV NAME(LOC) BV2S.; GLUCOSE,POINT OF CARE 355 MG/DL (70-110)
[2022-08-12] MEDS: MetFORMIN HCL 500 MG TABLET PO SCH ×2 (06:55→16:25)
[2022-08-12] MEDS: INSULIN LISPRO 100 UNITS/ML SQ PRN ×3 (06:59→20:11)
[2022-08-12] MEDS ORDERED: ChlordiazePOXIDE HCL 10 MG CAPSULE PO PRN (07:00)
[2022-08-12] MEDS: FAMOTIDINE 20 MG TABLET PO SCH ×2 (08:44→16:24)
[2022-08-12] MEDS: GABAPENTIN 300 MG CAPSULE PO SCH ×3 (08:45→16:25)
[2022-08-12] MEDS: CloNIDine HCL 0.1 MG TABLET PO SCH ×3 (08:45→16:24)
[2022-08-12] MEDS: BusPIRone HCL 10 MG TABLET PO SCH ×3 (08:45→16:24)
[2022-08-12] MEDS: ChlordiazePOXIDE HCL 10 MG CAPSULE PO SCH ×4 (08:45→20:02)
[2022-08-12] MEDS: QUEtiapine FUMARATE 25 MG TABLET PO SCH ×2 (08:45→16:25)
[2022-08-12 08:58] VITALS: BP 141/86
[2022-08-12] MEDS ORDERED: INSULIN LISPRO 100 UNITS/ML SQ ONE (11:30)
[2022-08-12 11:42] LABS: GLUCOMETER DEV NAME(LOC) BV2S.; GLUCOSE,POINT OF CARE 403 MG/DL (70-110)
[2022-08-12 12:45] VITALS: BP 139/90
[2022-08-12 13:16] LABS: GLUCOMETER DEV NAME(LOC) BV2S.; GLUCOSE,POINT OF CARE 379 MG/DL (70-110)
[2022-08-12 16:20] VITALS: BP 133/90
[2022-08-12 17:36] LABS: GLUCOMETER DEV NAME(LOC) BV2S.; GLUCOSE,POINT OF CARE 264 MG/DL (70-110)
[2022-08-12] MEDS: QUEtiapine FUMARATE 100 MG TABLET PO SCH (20:02)
[2022-08-12] MEDS: TraZODone HCL 50 MG TABLET PO SCH (20:02)
[2022-08-12] MEDS ORDERED: INSULIN GLARGINE,HUM.REC.ANLOG 100 UNITS/ML SQ SCH (21:00)
[2022-08-12 21:01] LABS: GLUCOMETER DEV NAME(LOC) BV2S.; GLUCOSE,POINT OF CARE 356 MG/DL (70-110)
[2022-08-13 00:10] VITALS: BP 124/86
[2022-08-13 06:01] LABS: GLUCOMETER DEV NAME(LOC) BV2S.; GLUCOSE,POINT OF CARE 327 MG/DL (70-110)
[2022-08-13] MEDS: INSULIN LISPRO 100 UNITS/ML SQ PRN ×2 (06:08→11:19)
[2022-08-13] MEDS: MetFORMIN HCL 500 MG TABLET PO SCH (06:37)
[2022-08-13] MEDS ORDERED: ChlordiazePOXIDE HCL 10 MG CAPSULE PO PRN (07:00)
[2022-08-13 07:40] LABS: ALANINE AMINOTRANSFERASE 28 U/L (12-78); ALBUMIN 2.9 g/dL (3.4-5.0); ALKALINE PHOSPHATASE 88 U/L (46-116); ANION GAP 9 mmol/L (8-16); ASPARTATE AMINOTRANSFERASE 11 U/L (15-37); BILIRUBIN,TOTAL 0.3 mg/dL (0.1-1.0); CALCIUM, TOTAL 9.1 mg/dL (8.8-10.5); CARBON DIOXIDE 27 mmol/L (22-29); CHLORIDE 94 mmol/L (98-107); CREATININE 0.91 mg/dL (0.60-1.30); GLUCOSE,RANDOM 357 mg/dL (70-110); POTASSIUM 3.7 mmol/L (3.5-5.1); SODIUM SERUM 130 mmol/L (136-145); TOTAL PROTEIN, SERUM 6.2 g/dL (6.4-8.2); UREA NITROGEN, BLOOD 9 mg/dL (7-18)
[2022-08-13 07:41] LABS: GLOMERULAR FILTR. RATE CALC > 60 mL/min (>60)
[2022-08-13 08:05] VITALS: BP 126/88
[2022-08-13] MEDS: QUEtiapine FUMARATE 25 MG TABLET PO SCH (09:08)
[2022-08-13] MEDS: GABAPENTIN 300 MG CAPSULE PO SCH ×2 (09:08→13:40)
[2022-08-13] MEDS: CloNIDine HCL 0.1 MG TABLET PO SCH ×2 (09:08→13:40)
[2022-08-13] MEDS: BusPIRone HCL 10 MG TABLET PO SCH ×2 (09:09→13:40)
[2022-08-13] MEDS: FAMOTIDINE 20 MG TABLET PO SCH (09:09)
[2022-08-13 11:41] LABS: GLUCOMETER DEV NAME(LOC) BV2S.; GLUCOSE,POINT OF CARE 316 MG/DL (70-110)
[2022-08-13] MEDS ORDERED: GLIP5TAB12 PO (14:40)
[2022-08-13] MEDS ORDERED: METF-1211 PO (14:40)
[2022-08-13] MEDS ORDERED: FAMO20 PO (14:40)
[2022-08-13] MEDS ORDERED: GABA-1181 PO (14:40)
[2022-08-13] MEDS ORDERED: CLON0.1T2 PO (14:40)
[2022-08-13] MEDS ORDERED: NACL1 PO (14:40)
[2022-08-13] MEDS ORDERED: QUET25TA PO (15:01)
[2022-08-13] MEDS ORDERED: QUET100T PO (15:02)
== END 2022-08-13 15:53 | disposition home or self-care (01) | DRG 750 ==
LOC: EMS 19:57 → B3A 08-09 07:50 → UNDOADMIN 08-09 07:50 → B2S 08-09 08:44
PROVIDERS: ADMIT Psychiatry & Neurology Child & Adolescent Psychiatry; ATTEND Psychiatry & Neurology Child & Adolescent Psychiatry
DX: F25.1 Schizoaffective disorder, depressive type (principal); R45.851 Suicidal ideations; E11.9 Type 2 diabetes mellitus without complications; E03.9 Hypothyroidism, unspecified; I10 Essential (primary) hypertension; Y90.8 Blood alcohol level of 240 mg/100 ml or more; E78.5 Hyperlipidemia, unspecified; E87.6 Hypokalemia; F41.9 Anxiety disorder, unspecified; Z20.822 Contact with and (suspected) exposure to COVID-19; F10.139 Alcohol abuse with withdrawal, unspecified; F10.129 Alcohol abuse with intoxication, unspecified; Z91.14 Patient's other noncompliance with medication regimen; Z79.899 Other long term (current) drug therapy
CPT/HCPCS: 80048; 80053; 80307; 81001; 82962; 83735; 85025; 87081; 99285; C9113; G0480; J1815; J2405; J7030; Q0162

== ENCOUNTER 2022-08-21 14:48 | Inpatient (IN) | payer MEDICAID ==
[~2022-08-21] VITALS: Ht 180.3 cm; Wt 106.4 kg
[~2022-08-21 14:48] MED LIST changes: -AMLO-257 PO; +CLON0.1T2 PO; +FAMO20 PO; +GLIP5TAB12 PO; +METF-1211 PO; +NACL1 PO; +QUET100T PO; +QUET25TA PO; -QUET300T19 PO
[2022-08-21 15:46] LABS: COVID AG,FIA SOURCE NASAL SWAB
[2022-08-21 15:56] LABS: AMPHET/METH SCREEN,URINE NEGATIVE (NEGATIVE); BARBITURATE SCREEN, URINE NEGATIVE (NEGATIVE); BENZODIAZEPINES SCREEN,URINE POSITIVE (NEGATIVE); CANNABINOID SCREEN,URINE NEGATIVE (NEGATIVE); COCAINE SCREEN,URINE NEGATIVE (NEGATIVE); METHADONE SCREEN, URINE NEGATIVE (NEGATIVE); OPIATE SCREEN,URINE NEGATIVE (NEGATIVE)
[2022-08-21 15:58] LABS: BASOPHILS % (AUTO) 0.9 % (0.0-2.0); EOSINOPHILS % (AUTO) 0.9 % (1.0-6.0); HEMATOCRIT 37.2 % (41-53); HEMOGLOBIN 12.5 g/dL (13.5-17.5); LYMPHOCYTES # (AUTO) 1.7 K/uL (1.0-4.8); LYMPHOCYTES % (AUTO) 26.3 % (22.0-44.0); MEAN CORPUSCULAR HEMOGLOBIN 31.9 pg (26.0-34.0); MEAN CORPUSCULAR HGB CONC 33.5 G/dL (31.0-37.0); MEAN CORPUSCULAR VOLUME 95 fL (80-100); MONOCYTES # (AUTO) 0.6 K/uL (0.1-1.0); MONOCYTES % (AUTO) 9.7 % (2.0-9.0); NEUTROPHILS # (AUTO) 4.1 K/uL (1.8-7.7); NEUTROPHILS % (AUTO) 62.2 % (40.0-70.0); PLATELET COUNT (AUTO) 338 K/uL (150-450); RED CELL DISTRIBUTION WIDTH 14.2 % (11.5-14.5)
[2022-08-21 15:58] LABS: PHENCYCLIDINE SCREEN,URINE NEGATIVE (NEGATIVE)
[2022-08-21 16:06] LABS: ANION GAP 18 mmol/L (8-16); CALCIUM, TOTAL 8.4 mg/dL (8.8-10.5); CARBON DIOXIDE 20 mmol/L (22-29); CHLORIDE 93 mmol/L (98-107); CREATININE 0.72 mg/dL (0.60-1.30); GLUCOSE,RANDOM 384 mg/dL (70-110); POTASSIUM 3.5 mmol/L (3.5-5.1); SODIUM SERUM 131 mmol/L (136-145); UREA NITROGEN, BLOOD 1 mg/dL (7-18)
[2022-08-21 16:07] LABS: GLOMERULAR FILTR. RATE CALC > 60 mL/min (>60)
[2022-08-21 16:12] LABS: ALANINE AMINOTRANSFERASE 31 U/L (12-78); ALBUMIN 2.7 g/dL (3.4-5.0); ALKALINE PHOSPHATASE 88 U/L (46-116); ASPARTATE AMINOTRANSFERASE 20 U/L (15-37); BILIRUBIN,TOTAL 0.3 mg/dL (0.1-1.0); TOTAL PROTEIN, SERUM 6.1 g/dL (6.4-8.2)
[2022-08-21] MEDS ORDERED: SODIUM CHLORIDE 0.9% 1,000 ML IV ONE (16:45)
[2022-08-21] MEDS ORDERED: LORazepam 2 MG/ML VIAL IVP ONE ×2 (17:15→19:45)
[2022-08-21] MEDS ORDERED: ZOLPIDEM TARTRATE 10 MG TABLET PO ONE (20:15)
[2022-08-21] MEDS ORDERED: ACETAMINOPHEN 500 MG TABLET PO ONE (20:45)
[2022-08-21] MEDS ORDERED: QUEtiapine FUMARATE 100 MG TABLET PO ONE (23:15)
[2022-08-22 15:09] LABS: ANION GAP 10 mmol/L (8-16); CALCIUM, TOTAL 8.4 mg/dL (8.8-10.5); CARBON DIOXIDE 27 mmol/L (22-29); CHLORIDE 95 mmol/L (98-107); GLOMERULAR FILTR. RATE CALC > 60 mL/min (>60); GLUCOSE,RANDOM 292 mg/dL (70-110); POTASSIUM 3.3 mmol/L (3.5-5.1); SODIUM SERUM 132 mmol/L (136-145); UREA NITROGEN, BLOOD 2 mg/dL (7-18)
[2022-08-22] MEDS ORDERED: DEXTROSE 50%-WATER 25 GM/50 ML SYRINGE IVP PRN (15:15)
[2022-08-22] MEDS ORDERED: INSULIN LISPRO 100 UNITS/ML SQ PRN (15:15)
[2022-08-22] MEDS ORDERED: BusPIRone HCL 10 MG TABLET PO ONE (16:00)
[2022-08-22] MEDS ORDERED: GABAPENTIN 300 MG CAPSULE PO ONE (16:00)
[2022-08-22] MEDS ORDERED: ONDANSETRON HCL 4 MG/2 ML VIAL IVP PRN ×2 (16:15→16:30)
[2022-08-22] MEDS ORDERED: ACETAMINOPHEN 325 MG TABLET PO PRN ×2 (16:15→16:30)
[2022-08-22] MEDS: DIAZEPAM 5 MG/ML 2 ML SYRINGE IVP ONE ×2 (16:18→17:07)
[2022-08-22] MEDS ORDERED: MAGNESIUM HYDROXIDE SUSPENSION 30 ML UDCUP PO PRN (16:30)
[2022-08-22] MEDS ORDERED: BISACODYL 10 MG RECTAL RECTAL SUPPOSITORY PR PRN (16:30)
[2022-08-22] MEDS ORDERED: ZOLPIDEM TARTRATE 5 MG TABLET PO PRN (16:30)
[2022-08-22] MEDS ORDERED: MAGNESIUM SULFATE 2 GM, MVI, ADULT NO.1 WITH VIT K 10 ML, THIAMINE 100 MG, FOLIC ACID 1... IV ONE ×5 (16:30)
[2022-08-22] MEDS ORDERED: QUEtiapine FUMARATE 25 MG TABLET PO ONE (17:00)
[2022-08-22] MEDS ORDERED: DIAZEPAM 5 MG/ML 2 ML SYRINGE IVP ONE (18:30)
[2022-08-22] MEDS ORDERED: QUEtiapine FUMARATE 100 MG TABLET PO ONE (21:00)
[2022-08-22] MEDS: DOCUSATE SODIUM 100 MG CAPSULE PO SCH (21:00)
[2022-08-22 22:36] VITALS: BP 161/82
[2022-08-22] MEDS: ChlordiazePOXIDE HCL 25 MG CAPSULE PO SCH (23:55)
[2022-08-22] MEDS: HEPARIN SODIUM,PORCINE 5,000 UNITS/ML VIAL SQ SCH (23:55)
[2022-08-23 04:25] VITALS: BP 148/71
[2022-08-23] MEDS ORDERED: DEXTROSE 50%-WATER 25 GM/50 ML SYRINGE IVP PRN (06:15)
[2022-08-23] MEDS: LORazepam 1 MG TABLET PO PRN ×4 (06:31→21:37)
[2022-08-23] MEDS: INSULIN LISPRO 100 UNITS/ML SQ PRN ×4 (06:32→20:28)
[2022-08-23 06:40] LABS: BASOPHILS % (AUTO) 0.8 % (0.0-2.0); EOSINOPHILS % (AUTO) 2.3 % (1.0-6.0); HEMATOCRIT 35.8 % (41-53); HEMOGLOBIN 12.3 g/dL (13.5-17.5); LYMPHOCYTES # (AUTO) 1.2 K/uL (1.0-4.8); LYMPHOCYTES % (AUTO) 32.1 % (22.0-44.0); MEAN CORPUSCULAR HEMOGLOBIN 32.5 pg (26.0-34.0); MEAN CORPUSCULAR HGB CONC 34.4 G/dL (31.0-37.0); MEAN CORPUSCULAR VOLUME 95 fL (80-100); MONOCYTES # (AUTO) 0.4 K/uL (0.1-1.0); MONOCYTES % (AUTO) 10.5 % (2.0-9.0); NEUTROPHILS % (AUTO) 54.3 % (40.0-70.0); PLATELET COUNT (AUTO) 251 K/uL (150-450); RED BLOOD CELL COUNT(AUTO) 3.79 MIL/uL (4.50-5.90)
[2022-08-23 06:43] LABS: ANION GAP 12 mmol/L (8-16); CALCIUM, TOTAL 8.3 mg/dL (8.8-10.5); CARBON DIOXIDE 27 mmol/L (22-29); CHLORIDE 98 mmol/L (98-107); CREATININE 0.74 mg/dL (0.60-1.30); GLUCOSE,RANDOM 246 mg/dL (70-110); SODIUM SERUM 137 mmol/L (136-145); UREA NITROGEN, BLOOD 1 mg/dL (7-18)
[2022-08-23 06:48] LABS: GLOMERULAR FILTR. RATE CALC > 60 mL/min (>60)
[2022-08-23] MEDS ORDERED: POTASSIUM CHL 10 MEQ/WATER 50 ML IV PRN (07:00)
[2022-08-23 07:06] LABS: GLUCOMETER DEV NAME(LOC) 5S.2B; GLUCOSE,POINT OF CARE 250 MG/DL (70-110)
[2022-08-23 08:03] VITALS: BP 147/80
[2022-08-23] MEDS: HEPARIN SODIUM,PORCINE 5,000 UNITS/ML VIAL SQ SCH ×2 (08:06→15:40)
[2022-08-23] MEDS: DOCUSATE SODIUM 100 MG CAPSULE PO SCH ×2 (08:06→21:00)
[2022-08-23] MEDS: PANTOPRAZOLE SODIUM 40 MG DR TABLET PO SCH (08:06)
[2022-08-23] MEDS: ChlordiazePOXIDE HCL 25 MG CAPSULE PO SCH ×2 (08:06→15:40)
[2022-08-23] MEDS: POTASSIUM CHLORIDE 20 MEQ ER TABLET PO PRN ×2 (08:09→17:57)
[2022-08-23 16:22] VITALS: BP 141/97
[2022-08-23 17:16] LABS: GLUCOMETER DEV NAME(LOC) 5S.1B; GLUCOSE,POINT OF CARE 252 MG/DL (70-110)
[2022-08-23 17:56] LABS: GLUCOMETER DEV NAME(LOC) 5N.1C; GLUCOSE,POINT OF CARE 195 MG/DL (70-110)
[2022-08-23 19:19] VITALS: BP 137/109
[2022-08-23] MEDS: MORPHINE SULFATE 2 MG/ML SYRINGE IVP PRN (20:29)
[2022-08-23 23:58] VITALS: BP 145/103
[2022-08-24] VITALS (7 sets, daily range): BP systolic 105–160; BP diastolic 80–114
[2022-08-24] MEDS: MORPHINE SULFATE 2 MG/ML SYRINGE IVP PRN ×4 (02:01→20:49)
[2022-08-24] MEDS: HYDROCODONE/ACETAMINOPHEN 5-325 MG TABLET PO PRN ×2 (03:53→16:19)
[2022-08-24] MEDS: INSULIN LISPRO 100 UNITS/ML SQ PRN ×4 (06:36→20:44)
[2022-08-24 07:16] LABS: GLUCOMETER DEV NAME(LOC) 5N.1C; GLUCOSE,POINT OF CARE 216 MG/DL (70-110)
[2022-08-24] MEDS: HEPARIN SODIUM,PORCINE 5,000 UNITS/ML VIAL SQ SCH ×3 (07:53→16:05)
[2022-08-24] MEDS: ChlordiazePOXIDE HCL 25 MG CAPSULE PO SCH ×3 (07:53→16:13)
[2022-08-24] MEDS: PANTOPRAZOLE SODIUM 40 MG DR TABLET PO SCH (08:00)
[2022-08-24] MEDS: DOCUSATE SODIUM 100 MG CAPSULE PO SCH ×2 (08:00→21:00)
[2022-08-24] MEDS ORDERED: METF-1211 PO (11:11)
[2022-08-24 11:28] LABS: BASOPHILS % (AUTO) 0.7 % (0.0-2.0); EOSINOPHILS % (AUTO) 1.4 % (1.0-6.0); HEMATOCRIT 41.7 % (41-53); HEMOGLOBIN 14.1 g/dL (13.5-17.5); LYMPHOCYTES # (AUTO) 1.1 K/uL (1.0-4.8); LYMPHOCYTES % (AUTO) 17.1 % (22.0-44.0); MEAN CORPUSCULAR HEMOGLOBIN 32.4 pg (26.0-34.0); MEAN CORPUSCULAR HGB CONC 33.8 G/dL (31.0-37.0); MEAN CORPUSCULAR VOLUME 96 fL (80-100); MONOCYTES # (AUTO) 0.6 K/uL (0.1-1.0); MONOCYTES % (AUTO) 8.6 % (2.0-9.0); NEUTROPHILS # (AUTO) 4.8 K/uL (1.8-7.7); NEUTROPHILS % (AUTO) 72.2 % (40.0-70.0); PLATELET COUNT (AUTO) 228 K/uL (150-450); RED BLOOD CELL COUNT(AUTO) 4.34 MIL/uL (4.50-5.90); RED CELL DISTRIBUTION WIDTH 14.4 % (11.5-14.5)
[2022-08-24 11:49] LABS: ANION GAP 10 mmol/L (8-16); CARBON DIOXIDE 26 mmol/L (22-29); CHLORIDE 98 mmol/L (98-107); CREATININE 0.82 mg/dL (0.60-1.30); GLUCOSE,RANDOM 221 mg/dL (70-110); POTASSIUM 4.1 mmol/L (3.5-5.1); SODIUM SERUM 134 mmol/L (136-145); UREA NITROGEN, BLOOD 3 mg/dL (7-18)
[2022-08-24 11:52] LABS: GLOMERULAR FILTR. RATE CALC > 60 mL/min (>60)
[2022-08-24] MEDS: LORazepam 1 MG TABLET PO PRN (12:37)
[2022-08-24] MEDS: QUEtiapine FUMARATE 25 MG TABLET PO SCH (16:13)
[2022-08-24] MEDS: BusPIRone HCL 10 MG TABLET PO SCH ×2 (16:13→20:49)
[2022-08-24] MEDS: CloNIDine HCL 0.1 MG TABLET PO SCH ×2 (16:13→20:48)
[2022-08-24 17:21] LABS: GLUCOMETER DEV NAME(LOC) 5N.1C; GLUCOSE,POINT OF CARE 197 MG/DL (70-110)
[2022-08-24] MEDS: MetFORMIN HCL 500 MG TABLET PO SCH (17:22)
[2022-08-24] MEDS: QUEtiapine FUMARATE 100 MG TABLET PO SCH (20:48)
[2022-08-24] MEDS ORDERED: TraZODone HCL 50 MG TABLET PO SCH (21:00)
[2022-08-24 23:56] LABS: GLUCOMETER DEV NAME(LOC) 5N.1C; GLUCOSE,POINT OF CARE 216 MG/DL (70-110)
[2022-08-25] MEDS: MORPHINE SULFATE 2 MG/ML SYRINGE IVP PRN ×4 (01:02→15:47)
[2022-08-25] MEDS: HEPARIN SODIUM,PORCINE 5,000 UNITS/ML VIAL SQ SCH ×3 (01:02→15:46)
[2022-08-25] MEDS: ChlordiazePOXIDE HCL 25 MG CAPSULE PO SCH ×3 (01:02→15:45)
[2022-08-25 03:35] VITALS: BP 124/82
[2022-08-25] MEDS: INSULIN LISPRO 100 UNITS/ML SQ PRN (06:06)
[2022-08-25] MEDS ORDERED: GlipiZIDE 5 MG TABLET PO SCH (06:30)
[2022-08-25 07:16] LABS: GLUCOMETER DEV NAME(LOC) 5N.1C; GLUCOSE,POINT OF CARE 187 MG/DL (70-110)
[2022-08-25 07:18] VITALS: BP 129/91
[2022-08-25] MEDS: CloNIDine HCL 0.1 MG TABLET PO SCH ×2 (09:03→15:46)
[2022-08-25] MEDS: BusPIRone HCL 10 MG TABLET PO SCH ×2 (09:04→15:45)
[2022-08-25] MEDS: PANTOPRAZOLE SODIUM 40 MG DR TABLET PO SCH (09:04)
[2022-08-25] MEDS: DOCUSATE SODIUM 100 MG CAPSULE PO SCH (09:04)
[2022-08-25] MEDS: MetFORMIN HCL 500 MG TABLET PO SCH ×2 (09:04→18:00)
[2022-08-25] MEDS: QUEtiapine FUMARATE 25 MG TABLET PO SCH ×2 (09:04→16:00)
[2022-08-25 11:26] LABS: GLUCOMETER DEV NAME(LOC) 5N.1C; GLUCOSE,POINT OF CARE 118 MG/DL (70-110)
[2022-08-25 11:53] VITALS: BP 132/80
[2022-08-25] MEDS ORDERED: CHLO5CAP4 PO (15:09)
[2022-08-25] MEDS ORDERED: LIB25 PO (15:09)
[2022-08-25 15:31] VITALS: BP 131/82
[2022-08-25] MEDS: QUEtiapine FUMARATE 100 MG TABLET PO SCH (15:46)
== END 2022-08-25 19:45 | disposition home or self-care (01) | DRG 52 ==
LOC: EMS 14:51 → 5S 08-22 18:42
PROVIDERS: ADMIT Internal Medicine; ATTEND Internal Medicine
DX: G92.9 Unspecified toxic encephalopathy (principal); R45.851 Suicidal ideations; E11.9 Type 2 diabetes mellitus without complications; E66.9 Obesity, unspecified; E78.5 Hyperlipidemia, unspecified; I10 Essential (primary) hypertension; Z20.822 Contact with and (suspected) exposure to COVID-19; F10.239 Alcohol dependence with withdrawal, unspecified; F20.9 Schizophrenia, unspecified; Z79.84 Long term (current) use of oral hypoglycemic drugs; Z79.899 Other long term (current) drug therapy; Z68.32 Body mass index [BMI] 32.0-32.9, adult
CPT/HCPCS: 80048; 80053; 82962; 84132; 85025; 99285; G0378; G0480; J1644; J2060; J2270; J3411; J3475; J3490; J7030

== ENCOUNTER 2022-08-27 17:54 | Emergency (ER) | payer MEDICAID ==
[~2022-08-27] VITALS: Ht 170.2 cm; Wt 97.7 kg
[~2022-08-27 17:54] MED LIST changes: +CHLO5CAP4 PO; +LIB25 PO
[2022-08-27 18:57] LABS: BASOPHILS % (AUTO) 0.7 % (0.0-2.0); EOSINOPHILS % (AUTO) 1.5 % (1.0-6.0); HEMATOCRIT 40.4 % (41-53); HEMOGLOBIN 13.6 g/dL (13.5-17.5); LYMPHOCYTES # (AUTO) 1.8 K/uL (1.0-4.8); LYMPHOCYTES % (AUTO) 44.7 % (22.0-44.0); MEAN CORPUSCULAR HEMOGLOBIN 31.8 pg (26.0-34.0); MEAN CORPUSCULAR HGB CONC 33.7 G/dL (31.0-37.0); MEAN CORPUSCULAR VOLUME 94 fL (80-100); MONOCYTES # (AUTO) 0.8 K/uL (0.1-1.0); NEUTROPHILS # (AUTO) 1.4 K/uL (1.8-7.7); NEUTROPHILS % (AUTO) 34.1 % (40.0-70.0); PLATELET COUNT (AUTO) 236 K/uL (150-450); RED BLOOD CELL COUNT(AUTO) 4.28 MIL/uL (4.50-5.90); RED CELL DISTRIBUTION WIDTH 14.1 % (11.5-14.5)
[2022-08-27 18:58] LABS: ANION GAP 12 mmol/L (8-16); CALCIUM, TOTAL 9.5 mg/dL (8.8-10.5); CARBON DIOXIDE 27 mmol/L (22-29); CHLORIDE 98 mmol/L (98-107); CREATININE 0.89 mg/dL (0.60-1.30); GLUCOSE,RANDOM 213 mg/dL (70-110); POTASSIUM 3.7 mmol/L (3.5-5.1); SODIUM SERUM 137 mmol/L (136-145); UREA NITROGEN, BLOOD 6 mg/dL (7-18)
[2022-08-27 19:00] LABS: GLOMERULAR FILTR. RATE CALC > 60 mL/min (>60)
[2022-08-27 19:05] LABS: ALANINE AMINOTRANSFERASE 44 U/L (12-78); ALBUMIN 3.1 g/dL (3.4-5.0); ALKALINE PHOSPHATASE 86 U/L (46-116); ASPARTATE AMINOTRANSFERASE 46 U/L (15-37); BILIRUBIN,TOTAL 0.3 mg/dL (0.1-1.0); TOTAL PROTEIN, SERUM 7.8 g/dL (6.4-8.2)
[2022-08-27 21:25] LABS: AMPHET/METH SCREEN,URINE NEGATIVE (NEGATIVE); BARBITURATE SCREEN, URINE NEGATIVE (NEGATIVE); BENZODIAZEPINES SCREEN,URINE POSITIVE (NEGATIVE); CANNABINOID SCREEN,URINE POSITIVE (NEGATIVE); COCAINE SCREEN,URINE NEGATIVE (NEGATIVE); METHADONE SCREEN, URINE NEGATIVE (NEGATIVE); OPIATE SCREEN,URINE NEGATIVE (NEGATIVE)
[2022-08-27 21:27] LABS: PHENCYCLIDINE SCREEN,URINE NEGATIVE (NEGATIVE)
[2022-08-27 22:56] LABS: COVID AG,FIA SOURCE NASAL SWAB
[2022-08-28 01:34] VITALS: BP 133/100
== END 2022-08-28 05:16 | disposition home or self-care (01) ==
LOC: EMS 18:01
DX: F25.9 Schizoaffective disorder, unspecified (principal); F10.20 Alcohol dependence, uncomplicated; Z20.822 Contact with and (suspected) exposure to COVID-19; Y90.8 Blood alcohol level of 240 mg/100 ml or more
CPT/HCPCS: 99285; 87426; 80053; 85025; 36415; 80307; G0480

== ENCOUNTER 2022-08-30 16:47 | Emergency (ER) | payer MEDICAID ==
[~2022-08-30] VITALS: Ht 170.2 cm; Wt 95.5 kg
[2022-08-30] MEDS ORDERED: SODIUM CHLORIDE 0.9% 1,000 ML IV ONE (17:15)
[2022-08-30 17:29] LABS: COVID AG,FIA SOURCE NASOPHARYNGEAL
[2022-08-30 17:32] LABS: BASOPHILS % (AUTO) 0.7 % (0.0-2.0); EOSINOPHILS % (AUTO) 0.6 % (1.0-6.0); HEMATOCRIT 36.7 % (41-53); HEMOGLOBIN 12.6 g/dL (13.5-17.5); LYMPHOCYTES # (AUTO) 2.1 K/uL (1.0-4.8); LYMPHOCYTES % (AUTO) 28.4 % (22.0-44.0); MEAN CORPUSCULAR HEMOGLOBIN 31.7 pg (26.0-34.0); MEAN CORPUSCULAR HGB CONC 34.3 G/dL (31.0-37.0); MEAN CORPUSCULAR VOLUME 92 fL (80-100); MONOCYTES # (AUTO) 0.7 K/uL (0.1-1.0); NEUTROPHILS # (AUTO) 4.5 K/uL (1.8-7.7); NEUTROPHILS % (AUTO) 60.3 % (40.0-70.0); PLATELET COUNT (AUTO) 332 K/uL (150-450); RED BLOOD CELL COUNT(AUTO) 3.97 MIL/uL (4.50-5.90); RED CELL DISTRIBUTION WIDTH 14.8 % (11.5-14.5)
[2022-08-30] MEDS ORDERED: LORazepam 2 MG/ML VIAL ONE (17:38)
[2022-08-30] MEDS ORDERED: DiphenhydrAMINE HCL 50 MG/ML VIAL ONE (17:38)
[2022-08-30] MEDS ORDERED: HALOPERIDOL LACTATE 5 MG/ML VIAL ONE (17:38)
[2022-08-30 17:42] LABS: ANION GAP 15 mmol/L (8-16); CARBON DIOXIDE 23 mmol/L (22-29); CHLORIDE 97 mmol/L (98-107); CREATININE 0.79 mg/dL (0.60-1.30); GLUCOSE,RANDOM 156 mg/dL (70-110); POTASSIUM 3.5 mmol/L (3.5-5.1); SODIUM SERUM 135 mmol/L (136-145); UREA NITROGEN, BLOOD 2 mg/dL (7-18)
[2022-08-30] MEDS ORDERED: LORazepam 2 MG/ML VIAL IM ONE (17:45)
[2022-08-30] MEDS ORDERED: DiphenhydrAMINE HCL 50 MG/ML VIAL IM ONE (17:45)
[2022-08-30] MEDS ORDERED: HALOPERIDOL LACTATE 5 MG/ML VIAL IM ONE (17:45)
[2022-08-30 17:47] LABS: ALANINE AMINOTRANSFERASE 32 U/L (12-78); ALBUMIN 2.8 g/dL (3.4-5.0); ALKALINE PHOSPHATASE 75 U/L (46-116); ASPARTATE AMINOTRANSFERASE 16 U/L (15-37); BILIRUBIN,TOTAL 0.4 mg/dL (0.1-1.0); TOTAL PROTEIN, SERUM 6.7 g/dL (6.4-8.2)
[2022-08-30 17:53] LABS: GLOMERULAR FILTR. RATE CALC > 60 mL/min (>60)
[2022-08-30 19:13] LABS: AMPHET/METH SCREEN,URINE NEGATIVE (NEGATIVE); BARBITURATE SCREEN, URINE NEGATIVE (NEGATIVE); BENZODIAZEPINES SCREEN,URINE POSITIVE (NEGATIVE); CANNABINOID SCREEN,URINE POSITIVE (NEGATIVE); COCAINE SCREEN,URINE NEGATIVE (NEGATIVE); METHADONE SCREEN, URINE NEGATIVE (NEGATIVE); OPIATE SCREEN,URINE NEGATIVE (NEGATIVE)
[2022-08-30 19:15] LABS: PHENCYCLIDINE SCREEN,URINE NEGATIVE (NEGATIVE)
[2022-08-30] MEDS ORDERED: LORazepam 2 MG/ML VIAL IVP ONE (19:15)
[2022-08-30 23:30] VITALS: BP 136/86
== END 2022-08-31 | disposition home or self-care (01) ==
LOC: EMS 16:52
DX: F25.9 Schizoaffective disorder, unspecified (principal); F32.A Depression, unspecified; F10.229 Alcohol dependence with intoxication, unspecified; R45.851 Suicidal ideations; Z20.822 Contact with and (suspected) exposure to COVID-19
CPT/HCPCS: 99291; 96374; 71045; 96361; 87426; 80053; 84484; 85025; 36415; 93005; 80307; 96372; G0480; J1200; J1630; J2060; J7030

== ENCOUNTER 2022-09-02 01:20 | Emergency (ER) | payer MEDICAID ==
[~2022-09-02] VITALS: Ht 172.7 cm; Wt 100.0 kg
[2022-09-02 01:53] LABS: BASOPHILS % (AUTO) 0.6 % (0.0-2.0); EOSINOPHILS % (AUTO) 0.8 % (1.0-6.0); HEMATOCRIT 38.6 % (41-53); HEMOGLOBIN 13.1 g/dL (13.5-17.5); LYMPHOCYTES # (AUTO) 2.2 K/uL (1.0-4.8); LYMPHOCYTES % (AUTO) 24.5 % (22.0-44.0); MEAN CORPUSCULAR HEMOGLOBIN 31.7 pg (26.0-34.0); MEAN CORPUSCULAR HGB CONC 33.9 G/dL (31.0-37.0); MEAN CORPUSCULAR VOLUME 94 fL (80-100); MONOCYTES # (AUTO) 0.6 K/uL (0.1-1.0); MONOCYTES % (AUTO) 6.8 % (2.0-9.0); NEUTROPHILS # (AUTO) 5.9 K/uL (1.8-7.7); NEUTROPHILS % (AUTO) 67.3 % (40.0-70.0); PLATELET COUNT (AUTO) 436 K/uL (150-450); RED BLOOD CELL COUNT(AUTO) 4.13 MIL/uL (4.50-5.90); RED CELL DISTRIBUTION WIDTH 14.9 % (11.5-14.5)
[2022-09-02 02:03] LABS: ANION GAP 13 mmol/L (8-16); CALCIUM, TOTAL 8.9 mg/dL (8.8-10.5); CARBON DIOXIDE 26 mmol/L (22-29); CHLORIDE 100 mmol/L (98-107); CREATININE 0.81 mg/dL (0.60-1.30); GLOMERULAR FILTR. RATE CALC > 60 mL/min (>60); GLUCOSE,RANDOM 197 mg/dL (70-110); POTASSIUM 3.4 mmol/L (3.5-5.1); SODIUM SERUM 139 mmol/L (136-145); UREA NITROGEN, BLOOD 1 mg/dL (7-18)
[2022-09-02 02:08] LABS: ALANINE AMINOTRANSFERASE 41 U/L (12-78); ALBUMIN 2.8 g/dL (3.4-5.0); ALKALINE PHOSPHATASE 82 U/L (46-116); ASPARTATE AMINOTRANSFERASE 30 U/L (15-37); BILIRUBIN,TOTAL 0.3 mg/dL (0.1-1.0); TOTAL PROTEIN, SERUM 6.7 g/dL (6.4-8.2)
[2022-09-02] MEDS ORDERED: ONDANSETRON HCL 4 MG/2 ML VIAL IM ONE (05:15)
[2022-09-02] MEDS ORDERED: LORazepam 1 MG TABLET PO ONE (05:30)
[2022-09-02 06:21] VITALS: BP 137/85
== END 2022-09-02 06:31 | disposition home or self-care (01) ==
LOC: EMS 01:22
DX: R45.851 Suicidal ideations (principal); E11.9 Type 2 diabetes mellitus without complications; I10 Essential (primary) hypertension; J44.9 Chronic obstructive pulmonary disease, unspecified; F20.9 Schizophrenia, unspecified; F17.210 Nicotine dependence, cigarettes, uncomplicated; F12.90 Cannabis use, unspecified, uncomplicated; K75.9 Inflammatory liver disease, unspecified
CPT/HCPCS: 99285; 80053; 85025; 36415; 96372; G0480; J2405